=== PATIENT | female | born 1975 | race Caucasian/White ===

== ENCOUNTER 2016-07-25 02:55 | Emergency (ER) | payer OTHER ==
[~2016-07-25 02:55] MED LIST: ALDOMET PO; FOLI5INJ2 SC; IRON65TA PO; LABEPOW7 PO; OMEP40CA2 PO; PRENTAB9 PO; SYNT150T PO
--- NOTE | 2016-07-25 04:10 | EDDOCDS ---
Physician Documentation [facility] Name: Payton Kumar Age: 40 yrs Sex: Female : 1975 Arrival Date: 07/25/2016 Time: 02:55 Bed 12 Private MD: Disposition: 07/25/16 04:03 Patient has left against medical advice. Impression: Contusion of unspecified part of head. - Patients states they are going to Home/Self Care. - Condition is Satisfactory. Medication Reconciliation, Local Pharmacy Hours form. Follow up: Private Physician; When: Call to arrange an appointment; Reason: Recheck today's complaints. - Problem is new. - Symptoms are unchanged. Historical: - Allergies: No known drug Allergies; - Home Meds: 1. folic acid 1 mg Oral tab 1 tab nightly 2. Iron CR 500mg Oral daily 3. Synthroid 150 mcg Oral tab 1 tab once daily 4. Oral once daily 5. medication christopher high blood pressure 6. medication for hypertension X2 - PMHx: AORTIC VALVE DISORDER; Diabetes - NIDDM: controlled; GERD; glioma; Hypertension; - PSHx: ; labectomy X 2; - Social history: Smoking status: Patient states was never smoker of tobacco. No barriers to communication noted, The patient speaks fluent Slovak, Speaks appropriately for age. - Family history: Not pertinent. - : The pt / caregiver states he / she is not on anticoagulants. Home medication list is obtained from the patient. - Exposure Risk Screening:: None identified. 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 3 cz in. (160.02 cm); 03:17 Body Mass Index 42.51 (108.86 kg, 160.02 cm) cz MDM: 03:39 CT Head Without Contrast Ordered. EDMS 03:39 CT Maxilofacial W/out Contrast Ordered. EDMS 03:59 Financial registration complete. [facility] 04:02 [facility] Payment Agreement was scanned into [employer] and attached to record. [facility] Signatures: Dispatcher [employer] EDMS Memo Montana RN RN Thien Duenas DO DO cs11 Priscila OsorioRN RN Leonela Jo The chart was reviewed and I authenticate all verbal orders and agree with the evaluation and treatment provided.Attachments: 04:02 [facility] Payment Agreement [facility] MTDD
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
--- NOTE | 2016-07-25 05:58 | EDDOCDS ---
Physician Documentation [facility] Name: Payton Kumar Age: 40 yrs Sex: Female : 1975 Arrival Date: 07/25/2016 Time: 02:55 Bed D1 Private MD: Disposition: 07/25/16 04:03 Patient has left against medical advice. Impression: Contusion of unspecified part of head. - Patients states they are going to Home/Self Care. - Condition is Satisfactory. Medication Reconciliation, Local Pharmacy Hours form. Follow up: Private Physician; When: Call to arrange an appointment; Reason: Recheck today's complaints. - Problem is new. - Symptoms are unchanged. Historical: - Allergies: No known drug Allergies; - Home Meds: 1. folic acid 1 mg Oral tab 1 tab nightly 2. Iron CR 500mg Oral daily 3. Synthroid 150 mcg Oral tab 1 tab once daily 4. Oral once daily 5. medication christopher high blood pressure 6. medication for hypertension X2 - PMHx: AORTIC VALVE DISORDER; Diabetes - NIDDM: controlled; GERD; glioma; Hypertension; - PSHx: ; labectomy X 2; - Social history: Smoking status: Patient states was never smoker of tobacco. No barriers to communication noted, The patient speaks fluent Sao Tomean, Speaks appropriately for age. - Family history: Not pertinent. - : The pt / caregiver states he / she is not on anticoagulants. Home medication list is obtained from the patient. - Exposure Risk Screening:: None identified. 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 3 cz in. (160.02 cm); 03:17 Body Mass Index 42.51 (108.86 kg, 160.02 cm) cz MDM: 03:39 CT Head Without Contrast Ordered. EDMS 03:39 CT Maxilofacial W/out Contrast Ordered. EDMS 03:59 Financial registration complete. [facility] 04:02 [facility] Payment Agreement was scanned into [employer] and attached to record. [facility] Signatures: Dispatcher [employer] EDMS Mckenzie Whittington RN RN jan Zecher, Calvin, RN RN Thien Duenas DO DO cs11 Priscila Osorio RN RN mlc Hook, Sandra michael The chart was reviewed and I authenticate all verbal orders and agree with the evaluation and treatment provided.Attachments: 04:02 [facility] Payment Agreement [facility] MTDD
--- NOTE | 2016-07-27 06:58 | EDDOCDS ---
Physician Documentation Name: Payton Kumar Age: 40 yrs Sex: Female : 1975 Arrival Date: 07/25/2016 Time: 02:55 Bed D1 Private MD: Disposition: 07/25/16 04:03 Patient has left against medical advice. Impression: Contusion of unspecified part of head. - Patients states they are going to Home/Self Care. - Condition is Satisfactory. Medication Reconciliation, Local Pharmacy Hours form. Follow up: Private Physician; When: Call to arrange an appointment; Reason: Recheck today's complaints. - Problem is new. - Symptoms are unchanged. Historical: - Allergies: No known drug Allergies; - Home Meds: 1. folic acid 1 mg Oral tab 1 tab nightly 2. Iron CR 500mg Oral daily 3. Synthroid 150 mcg Oral tab 1 tab once daily 4. Oral once daily 5. medication christopher high blood pressure 6. medication for hypertension X2 - PMHx: AORTIC VALVE DISORDER; Diabetes - NIDDM: controlled; GERD; glioma; Hypertension; - PSHx: ; labectomy X 2; - Social history: Smoking status: Patient states was never smoker of tobacco. No barriers to communication noted, The patient speaks fluent Nigerian, Speaks appropriately for age. - Family history: Not pertinent. - : The pt / caregiver states he / she is not on anticoagulants. Home medication list is obtained from the patient. - Exposure Risk Screening:: None identified. 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 3 cz in. (160.02 cm); 03:17 Body Mass Index 42.51 (108.86 kg, 160.02 cm) cz MDM: 03:39 CT Head Without Contrast Ordered. EDMS 03:39 CT Maxilofacial W/out Contrast Ordered. EDMS 03:59 Financial registration complete. [facility] 04:02 [facility] Payment Agreement was scanned into [employer] and attached to record. [facility] 18:15 T-Sheet-- Draft Copy was scanned into [employer] and attached to record. klr 19:43 Refusal of Services was scanned into [employer] and attached to record. k[facility]3 Signatures: Dispatcher [employer] EDMS Mckenzie Whittington RN RN jan Zecher, Calvin, RN RN cz Fiddler, Kris, Reg Reg kf3 Thien Orourke, DO cs11 Priscila Osorio RN RN mlc Hook, Sandra [facility] Lynnette Sloan The chart was reviewed and I authenticate all verbal orders and agree with the evaluation and treatment provided.Attachments: 04:02 [facility] Payment Agreement [facility] 18:15 T-Sheet-- Draft Copy klr Chart Complete MTDD
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
--- NOTE | 2016-07-27 06:58 | EDDOCDS ---
Physician Documentation [facility] Name: Payton Kumar Age: 40 yrs Sex: Female : 1975 Arrival Date: 07/25/2016 Time: 02:55 Bed D1 Private MD: Disposition: 07/25/16 04:03 Patient has left against medical advice. Impression: Contusion of unspecified part of head. - Patients states they are going to Home/Self Care. - Condition is Satisfactory. Medication Reconciliation, Local Pharmacy Hours form. Follow up: Private Physician; When: Call to arrange an appointment; Reason: Recheck today's complaints. - Problem is new. - Symptoms are unchanged. Historical: - Allergies: No known drug Allergies; - Home Meds: 1. folic acid 1 mg Oral tab 1 tab nightly 2. Iron CR 500mg Oral daily 3. Synthroid 150 mcg Oral tab 1 tab once daily 4. Oral once daily 5. medication christopher high blood pressure 6. medication for hypertension X2 - PMHx: AORTIC VALVE DISORDER; Diabetes - NIDDM: controlled; GERD; glioma; Hypertension; - PSHx: ; labectomy X 2; - Social history: Smoking status: Patient states was never smoker of tobacco. No barriers to communication noted, The patient speaks fluent American, Speaks appropriately for age. - Family history: Not pertinent. - : The pt / caregiver states he / she is not on anticoagulants. Home medication list is obtained from the patient. - Exposure Risk Screening:: None identified. 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 3 cz in. (160.02 cm); 03:17 Body Mass Index 42.51 (108.86 kg, 160.02 cm) cz MDM: 03:39 CT Head Without Contrast Ordered. EDMS 03:39 CT Maxilofacial W/out Contrast Ordered. EDMS 03:59 Financial registration complete. [facility] 04:02 [facility] Payment Agreement was scanned into [employer] and attached to record. [facility] 18:15 T-Sheet-- Draft Copy was scanned into [employer] and attached to record. klr 19:43 Refusal of Services was scanned into [employer] and attached to record. kf3 Signatures: Dispatcher [employer] EDMS Mckenzie Whittington RN RN jan Zecher, Calvin, RN RN cz Fiddler, Kris, Reg Reg kf3 Thien Orourke, DO cs11 Priscila Osorio RN RN mlc Hook, Sandra [facility] Lynnette Sloan The chart was reviewed and I authenticate all verbal orders and agree with the evaluation and treatment provided.Attachments: 04:02 [facility] Payment Agreement [facility] 18:15 T-Sheet-- Draft Copy klr Chart Complete MTDD
== END 2016-07-25 05:57 | disposition left against medical advice (07) ==
LOC: M ED 02:55
DX: S09.93XA Unspecified injury of face, initial encounter (principal); Y04.0XXA Assault by unarmed brawl or fight, initial encounter; Y92.410 Unspecified street and highway as the place of occurrence of the external cause; Y93.89 Activity, other specified; Y99.8 Other external cause status; I35.9 Nonrheumatic aortic valve disorder, unspecified; E11.9 Type 2 diabetes mellitus without complications; L21.9 Seborrheic dermatitis, unspecified; I10 Essential (primary) hypertension; C71.9 Malignant neoplasm of brain, unspecified; Z79.899 Other long term (current) drug therapy

== ENCOUNTER → 2017-03-04 | Outpatient (REF) | payer OTHER ==
[2017-03-04 13:54] LABS: ALBUMIN 3.9 GM/DL (3.2-5.2); ALBUMIN/GLOBULIN RATIO 1.11 (1.00-1.93); ALKALINE PHOSPHATASE 103 U/L (45-117); ALT/SGPT 30 U/L (12-78); ANION GAP 14 MEQ/L (8-16); AST/SGOT 12 U/L (15-37); BILIRUBIN,TOTAL 0.6 MG/DL (0.2-1.0); BLOOD UREA NITROGEN 23 MG/DL (7-18); CALCIUM LEVEL 8.6 MG/DL (8.5-10.1); CARBON DIOXIDE LEVEL 19 MEQ/L (21-32); CHLORIDE LEVEL 111 MEQ/L (98-107); CREATININE FOR GFR 0.68 MG/DL (0.55-1.02); GLOMERULAR FILTRATION RATE > 60.0 (>60); GLUCOSE, FASTING 105 MG/DL (70-105); SODIUM LEVEL 144 MEQ/L (136-145); TOTAL PROTEIN 7.4 GM/DL (6.4-8.2)
[2017-03-04 13:59] LABS: BASO % 0.3 % (0.0-1.0); EOS # 0.2 K/mm3 (0.0-0.50); EOS % 2.2 % (0.0-3.0); LARGE UNSTAINED CELL # 0.1 K/mm3 (0.0-0.4); LARGE UNSTAINED CELL % 1.2 % (0.0-4.0); LYMPH # 1.7 K/mm3 (1.5-4.5); LYMPH % 21.8 % (24.0-44.0); MEAN CORPUSCULAR HEMOGLOBIN 29.1 pg (27.0-33.0); MEAN CORPUSCULAR HGB CONC 33.2 g/dl (32.0-36.5); MEAN CORPUSCULAR VOLUME 87.7 fl (80.0-96.0); MONO # 0.3 K/mm3 (0.0-0.8); MONO % 3.4 % (0.0-5.0); NEUTROPHILS # 5.5 K/mm3 (1.8-7.7); NEUTROPHILS % 71.2 % (36.0-66.0); PLATELET COUNT, AUTOMATED 385 k/mm3 (150-450); RED CELL DISTRIBUTION WIDTH 13.2 % (11.5-14.5); WHITE BLOOD COUNT 7.6 K/mm3 (4.0-10.0)
== END ==
LOC: M LABNEURO 11:40
PROVIDERS: ATTEND Psychiatry & Neurology Neurology
DX: G43.711 Chronic migraine without aura, intractable, with status migrainosus (principal); D32.0 Benign neoplasm of cerebral meninges

== ENCOUNTER → 2017-06-20 | Outpatient (REF) | payer OTHER | LOC: M LAB REF 21:28 | DX: R30.0 Dysuria (principal) ==

== ENCOUNTER 2017-08-14 18:35 | Emergency (ER) | payer OTHER ==
[2017-08-14] MEDS ORDERED: LABETALOL HCL 100 MG/20 ML VIAL IV (19:09)
[2017-08-14 19:18] LABS: BASO % 0.4 % (0.0-1.0); EOS # 0.3 10^3/uL (0.0-0.50); EOS % 2.8 % (0.0-3.0); HEMATOCRIT 38.8 % (36.0-47.0); HEMOGLOBIN 12.8 g/dl (12.0-16.0); IMMATURE GRANULOCYTE % 0.5 % (0-3.0); LYMPH % 20.2 % (24.0-44.0); MEAN CORPUSCULAR HEMOGLOBIN 28.1 pg (27.0-33.0); MEAN CORPUSCULAR VOLUME 85.1 fl (80.0-96.0); MONO # 0.6 10^3/uL (0.0-0.8); NEUTROPHILS # 6.9 10^3/uL (1.8-7.7); NEUTROPHILS % 70.1 % (36.0-66.0); PLATELET COUNT, AUTOMATED 364 10^3/uL (150-450); RED BLOOD COUNT 4.56 10^6/uL (4.00-5.40); RED CELL DISTRIBUTION WIDTH 14.9 % (11.5-14.5); WHITE BLOOD COUNT 9.9 10^3/uL (4.0-10.0)
[2017-08-14] MEDS: ASPIRIN 81 MG CHEW TABLET PO (19:29)
[2017-08-14] MEDS: LABETALOL 100 MG TAB PO (19:29)
[2017-08-14 19:36] LABS: INR 0.95; PARTIAL THROMBOPLASTIN TIME 28.1 SECONDS (26.8-37.9); PROTHROMBIN TIME 12.8 SECONDS (12.4-14.5)
[2017-08-14 19:39] LABS: D-DIMER QUANT 397.4 ng/ml (<500)
[2017-08-14 19:44] LABS: ALBUMIN 3.8 GM/DL (3.2-5.2); ALBUMIN/GLOBULIN RATIO 1.06 (1.00-1.93); ALKALINE PHOSPHATASE 146 U/L (45-117); ALT/SGPT 36 U/L (12-78); ANION GAP 8 MEQ/L (8-16); AST/SGOT 19 U/L (7-37); BILIRUBIN,DIRECT 0.1 MG/DL (0.0-0.2); BILIRUBIN,TOTAL 0.4 MG/DL (0.2-1.0); BLOOD UREA NITROGEN 12 MG/DL (7-18); CALCIUM LEVEL 8.4 MG/DL (8.5-10.1); CARBON DIOXIDE LEVEL 23 MEQ/L (21-32); CHLORIDE LEVEL 111 MEQ/L (98-107); CPK CREATINE PHOSPHOKINASE 171 U/L (26-192); CREATININE FOR GFR 0.76 MG/DL (0.55-1.30); FREE T4 0.91 NG/DL (0.76-1.46); GLOMERULAR FILTRATION RATE > 60.0 (>60); GLUCOSE, FASTING 96 MG/DL (70-100); LIPASE 129 U/L (73-393); POTASSIUM SERUM 3.8 MEQ/L (3.5-5.1); SODIUM LEVEL 142 MEQ/L (136-145); TOTAL PROTEIN 7.4 GM/DL (6.4-8.2); TROPONIN I < 0.02 NG/ML (< 0.10)
[2017-08-14 19:49] LABS: CK-MB VALUE MASS 3.4 NG/ML (0.0-3.6); MB/CK RELATIVE INDEX 1.98 (< OR =4); NT-PRO BNP 50 PG/ML (<125)
[2017-08-14 20:02] LABS: CONTROL LINE HCG INT CTR LINE PRESENT; HCG, SERUM QUALITATIVE NEGATIVE (NEGATIVE)
[2017-08-14 22:59] LABS: CPK CREATINE PHOSPHOKINASE 152 U/L (26-192); TROPONIN I < 0.02 NG/ML (< 0.10)
[2017-08-14 23:00] LABS: CK-MB VALUE MASS 2.9 NG/ML (0.0-3.6)
== END 2017-08-14 23:46 | disposition home or self-care (01) ==
LOC: M ED 18:35
DX: I16.0 Hypertensive urgency (principal); R07.9 Chest pain, unspecified; E78.5 Hyperlipidemia, unspecified; Z82.49 Family history of ischemic heart disease and other diseases of the circulatory system; Z88.4 Allergy status to anesthetic agent; Z79.899 Other long term (current) drug therapy
CPT/HCPCS: 71046

== ENCOUNTER 2018-07-29 18:10 | Emergency (ER) | payer OTHER ==
[~2018-07-29] VITALS: Ht 160 cm; Wt 127.3 kg
[~2018-07-29 18:10] MED LIST changes: +AMLO10TA5; +FERR325T3 PO; +LABE300T2; +LOSA50TA88 PO; +PARO20TA3 PO; +TOPI100T9
[2018-07-29] MEDS ORDERED: PARO1TAB33 (18:18)
[2018-07-29] MEDS ORDERED: NORT75CA2 (18:18)
[2018-07-29] MEDS ORDERED: KETOROLAC TROMETHAMINE 10 MG TAB PO ONE (19:00)
[2018-07-29] MEDS ORDERED: diazePAM 5 MG TAB PO ONE (19:00)
--- NOTE | 2018-07-29 19:46 | REP ---
THORACIC SPINE: Three views of the thoracic spine are performed. No fracture or dislocation is seen. Vertebral bodies are normal in height and are well aligned with normal thoracic kyphosis. There is mild diffuse spurring and there is mild diffuse disc space narrowing. The posterior elements are intact. IMPRESSION: Degenerative changes without fracture or dislocation. Electronically Signed by Fantasma Collado MD 07/29/2018 07:49 P
[2018-07-29 19:47] VITALS: BP 146/82
--- NOTE | 2018-07-29 19:48 | REP ---
LUMBOSACRAL SPINE: Five views of the lumbosacral spine are performed. There is no compression fracture or malalignment. There is normal lumbar lordosis. There is mild diffuse spurring. There is mild disc space narrowing and subchondral sclerosis at L5-S1. Posterior elements are intact. IMPRESSION: Degenerative changes without fracture or dislocation. Electronically Signed by Fantasma Collado MD 07/29/2018 07:49 P
--- NOTE | 2018-07-29 19:51 | REPVR ---
EXAM: CT Head Without Contrast EXAM DATE/TIME: 07/29/2018 7:11 PM CLINICAL HISTORY: 42 years old, female; Injury or trauma; Fall; Initial encounter; Blunt trauma (contusions or hematomas); Consciousness not specified; Prior surgery; Surgery date: 6+ months; Surgery type: Tumor removal; Additional info: Fall on ice, HERNANDEZ, recent brain surg TECHNIQUE: Axial computed tomography images of the head/brain without contrast. All CT scans at this facility use at least one of these dose optimization techniques: automated exposure control; mA and/or kV adjustment per patient size (includes targeted exams where dose is matched to clinical indication); or iterative reconstruction. COMPARISON: CT Head without contrast 07/21/2015 8:10 AM FINDINGS: Brain: Focus of macrocystic encephalomalacia right posterior parietal lobe consistent with prior surgery. Ventricles: Normal. No ventriculomegaly. Bones/joints: Status post interval right posterior parietal craniotomy. Sinuses: Visualized sinuses are unremarkable. No acute sinusitis. Mastoid air cells: Visualized mastoid air cells are unremarkable. No mastoid effusion. Soft tissues: Unremarkable. IMPRESSION: Focus of macrocystic encephalomalacia right posterior parietal lobe consistent with prior surgery. No acute intracranial findings. Electronically signed by: Palmer Lerner On 07/29/2018 19:51:36 PM
--- NOTE | 2018-07-29 19:55 | REPVR ---
EXAM: CT Cervical Spine Without Contrast EXAM DATE/TIME: 07/29/2018 7:11 PM CLINICAL HISTORY: 42 years old, female; Injury or trauma; Fall; Initial encounter; Blunt trauma; Additional info: Fall on ice, HERNANDEZ, neck pain TECHNIQUE: Axial computed tomography images of the cervical spine without intravenous contrast. All CT scans at this facility use at least one of these dose optimization techniques: automated exposure control; mA and/or kV adjustment per patient size (includes targeted exams where dose is matched to clinical indication); or iterative reconstruction. Coronal and sagittal reformatted images were created and reviewed. COMPARISON: No relevant prior studies available. FINDINGS: Vertebrae: No acute fracture. Normal alignment. Discs/Spinal canal/Neural foramina: Mild foraminal narrowing on the right at C3. Disc osteophyte complex at C5-6 effaces the ventral subarachnoid space and results in mild mid cord impingement. Soft tissues: Unremarkable. Lungs: Lung apices are normal. IMPRESSION: No acute findings. Electronically signed by: Palmer Lerner On 07/29/2018 19:55:09 PM
[2018-07-29] MEDS ORDERED: KETO10TAB PO (20:01)
[2018-07-29] MEDS ORDERED: VALI5TAB PO (20:01)
== END 2018-07-29 20:13 | disposition home or self-care (01) ==
LOC: M ED 18:10
DX: S30.0XXA Contusion of lower back and pelvis, initial encounter (principal); W00.1XXA Fall from stairs and steps due to ice and snow, initial encounter; Y92.59 Other trade areas as the place of occurrence of the external cause; Y93.9 Activity, unspecified; Y99.9 Unspecified external cause status; I10 Essential (primary) hypertension; E03.9 Hypothyroidism, unspecified; E28.2 Polycystic ovarian syndrome; F32.9 Major depressive disorder, single episode, unspecified; I35.0 Nonrheumatic aortic (valve) stenosis; E66.2 Morbid (severe) obesity with alveolar hypoventilation; Z79.899 Other long term (current) drug therapy; Z88.4 Allergy status to anesthetic agent

== ENCOUNTER → 2018-08-01 | Outpatient (CLI) | payer OTHER ==
[~2018-08-01] MED LIST changes: +KETO10TAB PO; +NORT75CA2; +PARO1TAB33; +PROHANCE 279.3MG/ML 15ML VIAL (A9576) As Ordered ONE; +PROHANCE 279.3MG/ML 5ML VIAL (A9576) As Ordered ONE; +VALI5TAB PO
--- NOTE | 2018-08-02 08:37 | REP ---
MR BRAIN WITHOUT AND WITH CONTRAST: HISTORY: Brain tumor. CONTRAST: ProHance 23 mL. COMPARISON: MR 08/21/[address] 07/29/2018. The patient is status post right parietal craniotomy. A small area of increased signal intensity on T2-weighted images is present in the posterior right parietal lobe. This represents gliosis and encephalomalacia. There is no intraparenchymal hemorrhage, infarct, mass or midline shift. There is no abnormal enhancement. The ventricular system is normal in appearance. There is no extracerebral collection. The sinuses are clear. IMPRESSION: Right parietal encephalomalacia. There is no recurrent tumor. Electronically Signed by Sarbjit Her MD 08/02/2018 08:44 A
== END ==
LOC: M RAD 15:36
PROVIDERS: ATTEND Neurological Surgery
DX: D33.2 Benign neoplasm of brain, unspecified (principal); H53.8 Other visual disturbances
CPT/HCPCS: 70553; A9576

== ENCOUNTER → 2018-10-17 | Outpatient (CLI) | payer OTHER ==
[~2018-10-17] MED LIST changes: -PROHANCE 279.3MG/ML 15ML VIAL (A9576) As Ordered ONE; -PROHANCE 279.3MG/ML 5ML VIAL (A9576) As Ordered ONE
[2018-10-17 11:56] LABS: HEMATOCRIT 38.5 % (36.0-47.0); HEMOGLOBIN 12.4 g/dl (12.0-15.5); MEAN CORPUSCULAR HEMOGLOBIN 28.2 pg (27.0-33.0); MEAN CORPUSCULAR HGB CONC 32.2 g/dl (32.0-36.5); MEAN CORPUSCULAR VOLUME 87.5 fl (80.0-96.0); PLATELET COUNT, AUTOMATED 357 10^3/uL (150-450); WHITE BLOOD COUNT 7.7 10^3/uL (4.0-10.0)
[2018-10-17 12:27] LABS: ALBUMIN 3.8 GM/DL (3.2-5.2); ALT/SGPT 32 U/L (12-78); BILIRUBIN,TOTAL 0.4 MG/DL (0.2-1.0); BLOOD UREA NITROGEN 16 MG/DL (7-18); CALCIUM LEVEL 8.4 MG/DL (8.5-10.1); CARBON DIOXIDE LEVEL 24 MEQ/L (21-32); CHLORIDE LEVEL 110 MEQ/L (98-107); CHOLESTEROL LEVEL 185 MG/DL (<200); CHOLESTEROL RISK RATIO 5.138 (<5); CREATININE FOR GFR 0.81 MG/DL (0.55-1.30); GLOMERULAR FILTRATION RATE > 60.0 (>58); GLUCOSE, FASTING 114 MG/DL (70-100); HDL CHOLESTEROL 36 MG/DL (>40); LDL CHOLESTEROL 133 MG/DL (<100); NON-HDL-C 149 MG/DL; POTASSIUM SERUM 4.1 MEQ/L (3.5-5.1); SODIUM LEVEL 142 MEQ/L (136-145); TOTAL PROTEIN 6.9 GM/DL (6.4-8.2); TRIGLYCERIDES LEVEL 79 MG/DL (<150)
[2018-10-17 12:37] LABS: HEMOGLOBIN A1c 6.3 %
--- NOTE | 2018-10-18 02:22 | REP ---
Clinical: Preoperative assessment with hypertension . Comparison: 08/14/2017 . Technique: PA and lateral. Findings: The mediastinum and cardiac silhouette are normal. The lung jalloh are clear and without acute consolidation, effusion, or pneumothorax. The skeletal structures are intact and normal. Impression: 1. No acute cardiopulmonary process. Electronically Signed by Harinder Melo MD 10/18/2018 02:13 A
== END ==
LOC: M LAB 11:23
PROVIDERS: ATTEND Family Medicine
DX: Z01.812 Encounter for preprocedural laboratory examination (principal); I10 Essential (primary) hypertension; E11.9 Type 2 diabetes mellitus without complications

== ENCOUNTER → 2018-12-05 | Outpatient (CLI) | payer OTHER ==
[2018-12-05 11:12] LABS: BASO % 0.5 % (0.0-1.0); EOS # 0.2 10^3/uL (0.0-0.50); EOS % 2.8 % (0.0-3.0); HEMATOCRIT 39.8 % (36.0-47.0); HEMOGLOBIN 12.9 g/dl (12.0-15.5); LYMPH # 1.8 10^3/uL (1.5-4.5); MEAN CORPUSCULAR HEMOGLOBIN 28.7 pg (27.0-33.0); MEAN CORPUSCULAR HGB CONC 32.4 g/dl (32.0-36.5); MEAN CORPUSCULAR VOLUME 88.6 fl (80.0-96.0); MONO # 0.5 10^3/uL (0.0-0.8); MONO % 7.5 % (0.0-5.0); NEUTROPHILS # 3.6 10^3/uL (1.8-7.7); NEUTROPHILS % 58.9 % (36.0-66.0); PLATELET COUNT, AUTOMATED 316 10^3/uL (150-450); RED BLOOD COUNT 4.49 10^6/uL (4.00-5.40); WHITE BLOOD COUNT 6.1 10^3/uL (4.0-10.0)
[2018-12-05 11:34] LABS: HEMOGLOBIN A1c 5.9 %
[2018-12-05 11:47] LABS: ALBUMIN 3.4 GM/DL (3.2-5.2); ALT/SGPT 26 U/L (12-78); BILIRUBIN,TOTAL 0.7 MG/DL (0.2-1.0); BLOOD UREA NITROGEN 11 MG/DL (7-18); CALCIUM LEVEL 8.9 MG/DL (8.5-10.1); CARBON DIOXIDE LEVEL 24 MEQ/L (21-32); CHLORIDE LEVEL 108 MEQ/L (98-107); CREATININE FOR GFR 0.57 MG/DL (0.55-1.30); FERRITIN 18 NG/ML (8-252); GLOMERULAR FILTRATION RATE > 60.0 (>58); GLUCOSE, FASTING 93 MG/DL (70-100); IRON (FE) 53 UG/DL (50-170); PERCENT SATURATION 16.2 % (13.2-45.0); PHOSPHORUS LEVEL 4.1 MG/DL (2.5-4.9); SODIUM LEVEL 141 MEQ/L (136-145); TOTAL 25(OH) VITAMIN D 39.6 NG/ML (30.0-100.0); TOTAL IRON BINDING CAPACITY 328 UG/DL (250-450); TOTAL PROTEIN 6.5 GM/DL (6.4-8.2); VITAMIN B12 LEVEL 1051 PG/ML (247-911)
[2018-12-05 19:13] LABS: HEMATOCRIT 39.8 % (36.0-47.0)
== END ==
LOC: M LAB 09:41
PROVIDERS: ATTEND Physician Assistant
DX: K91.2 Postsurgical malabsorption, not elsewhere classified (principal); Z98.84 Bariatric surgery status; E55.9 Vitamin D deficiency, unspecified

== ENCOUNTER → 2019-01-18 | Outpatient (REF) | payer OTHER ==
[2019-01-18 14:28] LABS: APPEARANCE, URINE CLOUDY (CLEAR); BACTERIA, URINE AUTO 1+ (NEGATIVE); BILIRUBIN, URINE AUTO NEGATIVE (NEGATIVE); BLOOD, URINE BLOOD NEGATIVE (NEGATIVE); COLOR, URINE AMBER (YELLOW); GLUCOSE, URINE (UA) AUTO NEGATIVE (NEGATIVE); KETONE, URINE AUTO TRACE mg/dL (NEGATIVE); LEUKOCYTE ESTERASE, URINE AUTO NEGATIVE (NEGATIVE); MUCUS, URINE LARGE (NEGATIVE); NITRITE, URINE AUTO NEGATIVE (NEGATIVE); PROTEIN, URINE AUTO 2+ mg/dL (NEGATIVE); RBC, URINE AUTO 2 /HPF (0-3); SPECIFIC GRAVITY URINE AUTO 1.024 (1.002-1.035); SQUAMOUS EPITHELIAL CELL UR AU 28 /HPF (0-6); WBC, URINE AUTO 5 /HPF (0-3)
== END ==
LOC: M LAB REF 13:04
PROVIDERS: ATTEND Physician Assistant
DX: N39.0 Urinary tract infection, site not specified (principal)

== ENCOUNTER → 2019-01-26 | Outpatient (CLI) | payer OTHER ==
[~2019-01-26] MED LIST changes: +ALPR1TAB3; +CHLO125TA; +LABE100T36 PO; +LABE300T2 PO; -OMEP40CA2 PO; +OMEP40CA97 PO; +PROHANCE 279.3MG/ML 15ML VIAL (A9576) As Ordered ONE; +PROHANCE 279.3MG/ML 5ML VIAL (A9576) As Ordered ONE
--- NOTE | 2019-01-26 12:48 | REP ---
MR BRAIN WITHOUT AND WITH CONTRAST: HISTORY: Brain tumor. CONTRAST: ProHance 20 mL. COMPARISON: 08/01/2018 The patient is status post right parietal craniotomy. A small area of increased signal intensity on T2-weighted images is present in the posterior right parietal lobe. There is dilatation of the overlying cortical sulci. This represents gliosis and encephalomalacia. There is no intraparenchymal hemorrhage, infarct, mass or midline shift. There is no abnormal enhancement. The ventricular system is normal in appearance. There is no extracerebral collection_. Minimal mucosal thickening is present in the right mastoid sinus. IMPRESSION: Right parental lobe encephalomalacia. There is no recurrent tumor. Electronically Signed by Sarbjit Her MD 01/26/2019 12:56 P
== END ==
LOC: M RAD 09:38
PROVIDERS: ATTEND Physician Assistant Medical
DX: G93.89 Other specified disorders of brain (principal)
CPT/HCPCS: 70553; A9576

== ENCOUNTER → 2019-02-07 | Outpatient (CLI) | payer OTHER ==
[~2019-02-07] MED LIST changes: -ALPR1TAB3; -CHLO125TA; -LABE100T36 PO; -LABE300T2 PO; +OMEP40CA2 PO; -OMEP40CA97 PO; -PROHANCE 279.3MG/ML 15ML VIAL (A9576) As Ordered ONE; -PROHANCE 279.3MG/ML 5ML VIAL (A9576) As Ordered ONE
--- NOTE | 2019-02-07 20:41 | REP ---
BILATERAL MAMMOGRAM WITH 3D TOMOSYNTHESIS, DIAGNOSTIC MAMMOGRAM RIGHT BREAST AND RIGHT BREAST ULTRASOUND: HISTORY: Palpable lump for two months outer right breast. The area is marked on the skin with a triangular marker. COMPARISON: [facility] 10/18/2012. Doyle Durham lifetime risk of breast cancer 21.5%. Mild scattered fibroglandular tissue is again seen bilaterally with no change. There is no new mass or architectural distortion. No clustered microcalcifications are seen. Real-time sonographic evaluation of outer right breast demonstrates no cystic or solid nodule. IMPRESSION: ACR 1 negative mammogram. Also negative right breast ultrasound. There is no mammographic or sonographic evidence of mass at the site of the reported palpable lump in the outer right breast. A negative mammogram and ultrasound should not deter biopsy if there is a clinically suspicious palpable mass present. Recommend followup mammogram in one year. Given the patient's elevated lifetime risk of breast cancer, recommend supplemental screening MRI of the breasts in 6 months. BIRADS 1: BI-RADS/ACR category 1 mammogram. Negative Mammogram. This mammogram was interpreted with the aid of an FDA-approved computer-aided detection system. The patient states she/he had a clinical breast exam in January 2019. The patient letter being requested is M2. Electronically Signed by Fantasma Collado MD 02/08/2019 02:36 P
== END ==
LOC: M RAD 15:20
PROVIDERS: ATTEND Family Medicine
DX: Z12.31 Encounter for screening mammogram for malignant neoplasm of breast (principal); R10.11 Right upper quadrant pain
CPT/HCPCS: 76642; 77066; G0279

== ENCOUNTER 2019-04-09 20:42 | Emergency (ER) | payer OTHER ==
[~2019-04-09] VITALS: Ht 160 cm; Wt 103.6 kg
[~2019-04-09 20:42] MED LIST changes: -OMEP40CA2 PO; +OMEP40CA97 PO
[2019-04-09] MEDS ORDERED: LABE300T2 PO (20:52)
[2019-04-09] MEDS ORDERED: CHLO125TA (20:52)
[2019-04-09] MEDS ORDERED: ALPR1TAB3 (20:52)
[2019-04-09] MEDS ORDERED: LABE100T36 PO (20:52)
--- NOTE | 2019-04-09 21:49 | REPVR ---
PROCEDURE INFORMATION: Exam: CT Head Without Contrast Exam date and time: 04/09/2019 9:27 PM Clinical history: 43 years old, female; Pain; Headache; Additional info: H/a post brain tumor TECHNIQUE: Imaging protocol: Computed tomography of the head without contrast. Radiation optimization: All CT scans at this facility use at least one of these dose optimization techniques: automated exposure control; mA and/or kV adjustment per patient size (includes targeted exams where dose is matched to clinical indication); or iterative reconstruction. COMPARISON: CT Head without contrast 07/29/2018 7:05 PM FINDINGS: Brain: Right parietal encephalomalacia. No midline shift, mass, fluid collection, or evidence of hemorrhage. Ventricles: Normal. No ventriculomegaly. Bones/joints: Right parietal craniotomy. Sinuses: Visualized sinuses are unremarkable. No fluid levels. Mastoid air cells: Visualized mastoid air cells are well aerated. Soft tissues: Unremarkable. IMPRESSION: No acute intracranial abnormality. Electronically signed by: Manfred Dick On 04/09/2019 21:49:29 PM
[2019-04-09] MEDS ORDERED: KETOROLAC 30 MG/ML VIAL (J1885) IV ONE (22:00)
[2019-04-09] MEDS ORDERED: METOCLOPRAMIDE INJ 10MG/2ML VIAL (J2765) IV ONE (22:00)
[2019-04-09] MEDS ORDERED: NS 1,000 ML IV ONE (22:00)
[2019-04-09] MEDS ORDERED: diphenhydrAMINE INJ 50MG/ML VIAL (J1200) IV ONE (22:00)
[2019-04-10 00:32] VITALS: BP 142/74
== END 2019-04-10 00:53 | disposition home or self-care (01) ==
LOC: M ED 20:42
DX: R51 Headache (principal); Z91.030 Bee allergy status; Z88.8 Allergy status to other drugs, medicaments and biological substances; Z79.899 Other long term (current) drug therapy
CPT/HCPCS: 70450; 96374; 96375; 99284; J1200; J1885; J2765

== ENCOUNTER → 2019-07-26 | Outpatient (REF) | payer OTHER ==
[~2019-07-26] MED LIST changes: +ALPR1TAB3; +CHLO125TA; +LABE100T36 PO; +LABE300T2 PO
[2019-07-26 17:39] LABS: INFLUENZA A AMPLIFICATION NEGATIVE (NEGATIVE); INFLUENZA B AMPLIFICATION NEGATIVE (NEGATIVE)
== END ==
LOC: M LAB REF 16:31
PROVIDERS: ATTEND Physician Assistant
DX: J11.1 Influenza due to unidentified influenza virus with other respiratory manifestations (principal)

== ENCOUNTER → 2019-11-17 | Outpatient (CLI) | payer OTHER ==
--- NOTE | 2019-11-18 10:20 | REP ---
REASON FOR EXAM: History of uterine myomatous changes. Comparison examination is 07/26/2013, which is the latest prior. Transvesical imaging only was performed. The reason transvaginal imaging was performed is unknown to me. The uterus is enlarged measuring 14.5 x 5.7 x 6.6 cm. Once again, there are multiple mixed echo, predominantly hypoechoic structures seen throughout the uterine parenchyma, the largest of which measure approximately 3.8 x 3.5 x 3.4 cm in the fundal portion and pedunculated, one anteriorly measuring 3 x 2.7 x 2.7 cm and the other posteriorly measuring 1.5 x 1.3 x 1.7 cm. The endometrial echo complex is distorted by the myomatous change, but has a maximal thickness of 7 mm. The right ovary measures 4.1 x 2.6 x 3.4 cm. There is a dominant follicle in the right ovary which measures 2.5 cm. Left ovary measures 3.2 x 2 x 2.5 cm and is unremarkable. IMPRESSION: Uterine myomatous changes, as described above.
== END ==
LOC: M WHC 10:50
PROVIDERS: ATTEND Specialist
DX: D21.9 Benign neoplasm of connective and other soft tissue, unspecified (principal)

== ENCOUNTER → 2019-12-05 | Outpatient (CLI) | payer OTHER ==
[~2019-12-05] MED LIST changes: +IBUP-1022 PO; +OXYC1TAB23 PO; -PARO1TAB33; +PARO1TAB33 PO; +SPIR-10 PO; +TOPR25TA PO
== END ==
LOC: M LABSMTC 09:52
PROVIDERS: ATTEND Anesthesiology
DX: Z01.818 Encounter for other preprocedural examination (principal); Z11.59 Encounter for screening for other viral diseases
CPT/HCPCS: C9803; U0003

== ENCOUNTER 2019-12-08 09:22 | Day surgery (SDC) | payer OTHER ==
[2019-12-08] VITALS (8 sets, daily range): BP systolic 128–172; BP diastolic 79–100
[~2019-12-08] VITALS: Ht 160 cm; Wt 102.2 kg
[~2019-12-08 09:22] MED LIST changes: -AMLO10TA5; +AMLO1TAB25; -IBUP-1022 PO; +LIDOCAINE 1% MDV 20ML VIAL SQ PRN; +LR 1,000 ML IV ONE; -OXYC1TAB23 PO; +ceFAZolin SOD 2 GM in IV 1 EA IV ONE
[2019-12-08 09:58] LABS: HEMATOCRIT 34.4 % (36.0-47.0); HEMOGLOBIN 11.3 g/dl (12.0-15.5); MEAN CORPUSCULAR HEMOGLOBIN 27.3 pg (27.0-33.0); MEAN CORPUSCULAR HGB CONC 32.8 g/dl (32.0-36.5); MEAN CORPUSCULAR VOLUME 83.1 fl (80.0-96.0); PLATELET COUNT, AUTOMATED 390 10^3/uL (150-450); RED BLOOD COUNT 4.14 10^6/uL (4.00-5.40); WHITE BLOOD COUNT 5.8 10^3/uL (4.0-10.0)
[2019-12-08 10:30] LABS: BLOOD UREA NITROGEN 13 MG/DL (7-18); CALCIUM LEVEL 8.4 MG/DL (8.5-10.1); CARBON DIOXIDE LEVEL 29 MEQ/L (21-32); CHLORIDE LEVEL 109 MEQ/L (98-107); CREATININE FOR GFR 0.81 MG/DL (0.55-1.30); GLOMERULAR FILTRATION RATE > 60.0 (>58); GLUCOSE, FASTING 91 MG/DL (70-100); POTASSIUM SERUM 3.9 MEQ/L (3.5-5.1); SODIUM LEVEL 140 MEQ/L (136-145)
[2019-12-08] MEDS ORDERED: MIDAZOLAM INJ 2MG/2ML VIAL (J2250 PER 1MG) As Ordered ONE ×2 (11:32→18:49)
[2019-12-08] MEDS ORDERED: ONDANSETRON 4MG/2ML VIAL As Ordered ONE (11:32)
[2019-12-08] MEDS ORDERED: LIDOCAINE 2% 100MG/5ML SDV (FOR ANES.) As Ordered ONE (11:32)
[2019-12-08] MEDS ORDERED: propofoL 200 MG/20 ML VIAL As Ordered ONE (11:32)
[2019-12-08] MEDS ORDERED: dexameTHASONE 4 MG/ML 1ML VIAL (J1100 PER 1MG) As Ordered ONE (11:32)
[2019-12-08] MEDS ORDERED: fentaNYL 100 MCG/2 ML INJECTION (J3010) As Ordered ONE (11:32)
[2019-12-08] MEDS ORDERED: KETOROLAC 60MG 2ML VIAL As Ordered ONE ×2 (11:32→18:49)
[2019-12-08] MEDS ORDERED: ROCURONIUM BROMIDE 50 MG/5 ML VIAL As Ordered ONE ×2 (11:32→14:18)
[2019-12-08] MEDS ORDERED: HYDROmorphone HCL 2 MG/ML 1ML VIAL (J1170) As Ordered ONE (11:32)
[2019-12-08] MEDS ORDERED: OXYC1TAB23 PO (13:31)
[2019-12-08] MEDS ORDERED: IBUP-1022 PO (13:32)
[2019-12-08] MEDS ORDERED: ACETAMINOPHEN 1000MG 100ML IV BTL (OFIRMEV) (J0131 PER 10MG) As Ordered ONE (13:50)
[2019-12-08] MEDS ORDERED: BUPIVACAINE HCL 0.25% 10ML VIAL As Ordered ONE (13:53)
[2019-12-08] MEDS ORDERED: SUGAMMADEX SODIUM 500 MG/5 ML VIAL (BRIDION) As Ordered ONE ×2 (14:20→18:49)
[2019-12-08] MEDS ORDERED: fentaNYL 100 MCG/2 ML INJECTION (J3010) IV PRN (16:15)
[2019-12-08] MEDS ORDERED: oxyCODONE 5MG TAB PO PRN (16:15)
[2019-12-08] MEDS ORDERED: LR 1,000 ML IV SCH ×2 (16:15→17:30)
[2019-12-08] MEDS ORDERED: ONDANSETRON 4MG/2ML VIAL IV PRN ×2 (16:15→17:30)
[2019-12-08] MEDS ORDERED: PERCOCET 5MG/325MG TAB PO PRN (17:30)
[2019-12-08] MEDS ORDERED: KETOROLAC 30 MG/ML 1ML VIAL IV PRN (17:30)
[2019-12-08] MEDS ORDERED: MORPHINE 4 MG/ML 1ML VIAL/SYRINGE (J2270) IV PRN (17:30)
[2019-12-08] MEDS: DOCUSATE SODIUM 100MG CAPSULE PO SCH (20:05)
[2019-12-08] MEDS ORDERED: METOPROLOL SUCC *XL* 25MG TAB (TopROL *XL*) PO SCH (21:00)
[2019-12-08] MEDS ORDERED: SPIRONOLACTONE 25 MG TAB PO SCH (21:00)
[2019-12-09] VITALS: BP 117/73
[2019-12-09] MEDS: PERCOCET 5MG/325MG TAB PO PRN ×3 (00:25→09:13)
[2019-12-09 04:00] VITALS: BP 127/78
[2019-12-09 08:00] VITALS: BP 136/72
[2019-12-09] MEDS: DOCUSATE SODIUM 100MG CAPSULE PO SCH (09:13)
--- NOTE | 2019-12-12 12:28 | RO ---
DATE OF PROCEDURE: 12/08/2019 PREOPERATIVE DIAGNOSIS: Menorrhagia, pelvic pain, fibroids. POSTOPERATIVE DIAGNOSIS: Menorrhagia, pelvic pain, fibroids. PROCEDURE: Robotic-assisted laparoscopy hysterectomy. Bilateral salpingectomy. Cystoscopy. SURGEON: Dr. Sarbjit Costello OFFICE ANALYST: Payton Posada NP ANESTHESIA: General endotracheal. ESTIMATED BLOOD LOSS: 200 mL. URINE OUTPUT: 400 mL. FINDINGS: Enlarged uterus with multiple uterine fibroids densely adherent to the anterior abdominal wall on the right. Omental adhesions to the anterior abdominal wall. Normal ovaries and fallopian tubes. Normal upper abdomen. OPERATIVE SUMMARY: The patient was taken to the operating room where general endotracheal anesthesia was induced. She was prepped and draped in sterile fashion in the dorsal lithotomy position. A DP7 Digitalare uterine manipulator was placed. The Melton catheter was placed. A periumbilical incision made with the scalpel. Veress needle was placed through this incision. A pneumoperitoneum was created. Three 8 mm suprapubic ports were placed under direct visualization. Using the vessel sealer and fenestrated bipolar instrument, the broad ligament attachments to the fallopian tubes were coagulated and incised. The fallopian tubes were amputated near their origin and removed through the suprapubic port. The utero-ovarian ligaments and round ligaments were then coagulated and incised, freeing the ovaries from the uterus. Dense adhesions of the uterus to the anterior abdominal wall on the right side were taken down with a combination of blunt and sharp dissection. A bladder flap was created. The uterine vessels were coagulated and incised. Using the monopolar Endoshears, the colpotomy was created in the upper vagina at the level of the VCare cup and this was extended circumferentially around the vagina. The specimen was enlarged and had to be morcellated in order to be removed through the vagina. In order to do this, the robot was undocked and Breisky retractors were placed. Once the specimen was removed, the robot was redocked. The vaginal cuff was closed with #1 V-Loc suture in running fashion. The pelvis was irrigated. Good hemostasis was noted. A cystoscopy was performed using a 70 degrees cystoscope. Bilateral ureteral jets were identified. There was no evidence of injury to the bladder. The cystoscope was removed. All instruments were removed. The skin was closed with #4-0 Monocryl subcuticular sutures. Sponge, instrument and needle counts were correct. Payton Posada NP, assisted throughout the procedure. She prepped the patient and positioned the patient. She manipulated the uterus and helped to remove the specimen. She subsequently helped close.
== END 2019-12-09 09:35 | disposition home or self-care (01) ==
LOC: M SDC 09:22 → M PED 17:00 → M SDC 12-09 09:35
PROVIDERS: ATTEND Specialist
DX: N92.0 Excessive and frequent menstruation with regular cycle (principal); N72 Inflammatory disease of cervix uteri; D25.1 Intramural leiomyoma of uterus; D25.2 Subserosal leiomyoma of uterus; K66.0 Peritoneal adhesions (postprocedural) (postinfection); I10 Essential (primary) hypertension; Z98.84 Bariatric surgery status; F32.9 Major depressive disorder, single episode, unspecified; G43.909 Migraine, unspecified, not intractable, without status migrainosus; Z91.013 Allergy to seafood; Z91.030 Bee allergy status; Z88.8 Allergy status to other drugs, medicaments and biological substances; Z79.899 Other long term (current) drug therapy
CPT/HCPCS: 36415; 58571; 80048; 81025; 85027; 86850; 86900; 86901; 88307; 96374; J0131; J0690; J1100; J1170; J1885; J2250; J2405; J3010

== ENCOUNTER → 2019-12-27 | Outpatient (REF) | payer OTHER ==
[~2019-12-27] MED LIST changes: +BACT800T5 PO; +IBUP-1022 PO; -LIDOCAINE 1% MDV 20ML VIAL SQ PRN; -LR 1,000 ML IV ONE; +OXYC1TAB23 PO; -ceFAZolin SOD 2 GM in IV 1 EA IV ONE
== END ==
LOC: M LAB REF 16:46
PROVIDERS: ATTEND Physician Assistant
DX: S31.109A Unspecified open wound of abdominal wall, unspecified quadrant without penetration into peritoneal cavity, initial encounter (principal); X58.XXXA Exposure to other specified factors, initial encounter; Y92.9 Unspecified place or not applicable

== ENCOUNTER 2020-02-27 11:42 | Emergency (ER) | payer OTHER ==
[~2020-02-27] VITALS: Ht 160 cm; Wt 102.2 kg
[~2020-02-27 11:42] MED LIST changes: -BACT800T5 PO
[2020-02-27] MEDS ORDERED: dexameTHASONE 20MG/5ML VIAL (J1100 PER 1MG) IV ONE (12:45)
[2020-02-27] MEDS ORDERED: ONDANSETRON 4MG/2ML VIAL IV ONE (12:45)
[2020-02-27] MEDS ORDERED: KETOROLAC 30 MG/ML 1ML VIAL IV ONE (12:45)
[2020-02-27] MEDS ORDERED: NS 1,000 ML IV ONE (12:45)
[2020-02-27] MEDS ORDERED: dexameTHASONE 4 MG/ML 1ML VIAL (J1100 PER 1MG) As Ordered ONE (12:46)
[2020-02-27] MEDS ORDERED: KETOROLAC 30 MG/ML 1ML VIAL As Ordered ONE (12:46)
[2020-02-27] MEDS ORDERED: ONDANSETRON 4MG/2ML VIAL As Ordered ONE (12:46)
[2020-02-27] MEDS ORDERED: BACT800T5 PO (14:12)
[2020-02-27] MEDS ORDERED: SUMAtriptan SUCCINATE 6 MG/0.5 ML VIAL SC ONE (14:15)
[2020-02-27] MEDS ORDERED: MORPHINE 2 MG/ML 1ML VIAL (J2270) IV ONE (14:45)
[2020-02-27 15:07] VITALS: BP 143/78
== END 2020-02-27 15:10 | disposition home or self-care (01) ==
LOC: M ED 11:42
DX: G44.001 Cluster headache syndrome, unspecified, intractable (principal); A49.02 Methicillin resistant Staphylococcus aureus infection, unspecified site; I10 Essential (primary) hypertension; Z88.8 Allergy status to other drugs, medicaments and biological substances; Z91.013 Allergy to seafood; Z91.030 Bee allergy status; Z79.899 Other long term (current) drug therapy
CPT/HCPCS: 96361; 96372; 96374; 96375; 99284; J1100; J1885; J2270; J2405

== ENCOUNTER → 2020-03-12 | Outpatient (CLI) | payer OTHER ==
[~2020-03-12] MED LIST changes: +BACT800T5 PO; +PROHANCE 279.3MG/ML 15ML VIAL As Ordered ONE; +PROHANCE 279.3MG/ML 5ML VIAL As Ordered ONE
--- NOTE | 2020-03-20 11:22 | REP ---
MRI STUDY OF THE BRAIN WITHOUT AND WITH IV CONTRAST HISTORY: Chronic intractable headaches. Dysembryoplastic neuroepithelial tumor of the brain. TECHNIQUE: Axial, coronal, and sagittal imaging planes are included. T1 and T2 weighted sequences include spin echo, fast spin echo, FLAIR, and diffusion weighted sequences. The gadolinium enhance dose is 20 mL of intravenous ProHance. Comparison MRI study of the brain was reviewed most recently from January 26, 2019. The most remote prior MRI study of the brain in the electronic x-ray jacket is dated January 19, 2013. FINDINGS: A right posterior parietal craniotomy has been performed. There is a small zone of underlying encephalomalacia in the right posterior parietal lobe approximately 3.3 x 2.6 x 1.5 cm in diameter. This is unchanged from comparison MR studies. This is the location where the 2012 prior study showed primary neoplasm. There is no evidence of recurrent mass effect or new abnormal contrast enhancement. Contrast enhancement is noted in normal intracranial vasculature. No abnormal contrast enhancement is appreciated. There is no evidence of infarct or hemorrhage. Ventricular size is unremarkable and unchanged. Diffusion weighted scans show no evidence to suggest acute ischemia. There is no MR evidence of significant paranasal sinus disease. IMPRESSION: Small zone of encephalomalacia underlying the craniotomy site in the right posterior parietal lobe region. No MR evidence to suggest recurrent or residual neoplasm. MTDD
== END ==
LOC: M RAD 11:58
PROVIDERS: ATTEND Physician Assistant Medical
DX: D33.2 Benign neoplasm of brain, unspecified (principal); R51 Headache
CPT/HCPCS: 70553; A9576

== ENCOUNTER 2020-05-21 16:28 | Emergency (ER) | payer OTHER ==
[~2020-05-21] VITALS: Ht 160 cm; Wt 105.1 kg
[~2020-05-21 16:28] MED LIST changes: -PROHANCE 279.3MG/ML 15ML VIAL As Ordered ONE; -PROHANCE 279.3MG/ML 5ML VIAL As Ordered ONE
--- NOTE | 2020-05-21 17:12 | ECGEPIP ---
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
[2020-05-21] MEDS ORDERED: GI COCKTAIL 50ML BTL(HYOSCYAMINE/MAALOX/LIDOCAINE VISCOUS)(1:3:1) PO ONE (17:15)
[2020-05-21] MEDS ORDERED: ASPIRIN 325 MG TAB PO ONE (17:15)
[2020-05-21] MEDS ORDERED: METO1TAB87 PO (17:31)
[2020-05-21 17:36] LABS: BASO % 0.6 % (0.0-1.0); EOS # 0.1 10^3/uL (0.0-0.5); EOS % 1.4 % (0.0-3.0); HEMATOCRIT 35.5 % (36.0-47.0); HEMOGLOBIN 11.1 g/dl (12.0-15.5); LYMPH % 32.5 % (24.0-44.0); MEAN CORPUSCULAR HEMOGLOBIN 24.9 pg (27.0-33.0); MEAN CORPUSCULAR HGB CONC 31.3 g/dl (32.0-36.5); MEAN CORPUSCULAR VOLUME 79.6 fl (80.0-96.0); MONO # 0.4 10^3/uL (0.0-0.8); MONO % 6.4 % (0.0-5.0); NEUTROPHILS # 3.7 10^3/uL (1.5-8.5); NEUTROPHILS % 58.9 % (36.0-66.0); PLATELET COUNT, AUTOMATED 377 10^3/uL (150-450); RED BLOOD COUNT 4.46 10^6/uL (4.00-5.40); WHITE BLOOD COUNT 6.2 10^3/uL (4.0-10.0)
[2020-05-21 17:47] LABS: INR 0.92; PROTHROMBIN TIME 12.6 SECONDS (12.5-14.3)
[2020-05-21 17:48] LABS: PARTIAL THROMBOPLASTIN TIME 28.6 SECONDS (24.2-38.5)
[2020-05-21 17:50] LABS: D-DIMER QUANT 364.12 ng/ml (<500)
[2020-05-21 18:03] LABS: HCG, SERUM QUALITATIVE NEGATIVE (NEGATIVE)
[2020-05-21 18:13] LABS: ALBUMIN 3.7 GM/DL (3.2-5.2); ALT/SGPT 28 U/L (12-78); BILIRUBIN,DIRECT 0.2 MG/DL (0.0-0.2); BILIRUBIN,TOTAL 0.7 MG/DL (0.2-1.0); BLOOD UREA NITROGEN 11 MG/DL (7-18); CALCIUM LEVEL 8.7 MG/DL (8.5-10.1); CARBON DIOXIDE LEVEL 25 MEQ/L (21-32); CHLORIDE LEVEL 107 MEQ/L (98-107); CK-MB VALUE MASS < 1.0 NG/ML (<3.6); CPK CREATINE PHOSPHOKINASE 83 U/L (26-192); CREATININE FOR GFR 0.73 MG/DL (0.55-1.30); FREE T4 0.98 NG/DL (0.76-1.46); GLOMERULAR FILTRATION RATE > 60.0 (>58); GLUCOSE, FASTING 80 MG/DL (70-100); LIPASE 163 U/L (73-393); NT-PRO BNP 70 PG/ML (<125); POTASSIUM SERUM 4.1 MEQ/L (3.5-5.1); SODIUM LEVEL 137 MEQ/L (136-145); TROPONIN I < 0.02 NG/ML (< 0.10)
[2020-05-21] MEDS ORDERED: KETOROLAC 30 MG/ML 1ML VIAL IV ONE (18:45)
--- NOTE | 2020-05-21 19:24 | REPVR ---
PROCEDURE INFORMATION: Exam: CT Chest Without Contrast; Diagnostic Exam date and time: 05/21/2020 6:55 PM Age: 44 years old Clinical indication: Chest pain; Type not specified TECHNIQUE: Imaging protocol: Diagnostic computed tomography of the chest without contrast. 3D rendering (Not supervised by radiologist): MIP and/or 3D reconstructed images were created by the technologist. Radiation optimization: All CT scans at this facility use at least one of these dose optimization techniques: automated exposure control; mA and/or kV adjustment per patient size (includes targeted exams where dose is matched to clinical indication); or iterative reconstruction. COMPARISON: CR Chest, 2 view PA, Lat 10/17/2018 11:39 AM FINDINGS: Lungs: Unremarkable. No consolidation. No masses. Pleural space: Unremarkable. No pneumothorax. No pleural effusion. Heart: Unremarkable. No cardiomegaly. No pericardial effusion. Aorta: Unremarkable. No aortic aneurysm. Lymph nodes: Mediastinal lymph nodes measuring less than 1 cm in the short axis. Stomach and bowel: Evidence of prior gastric surgery. Bones/joints: Unremarkable. No acute fracture. Soft tissues: Unremarkable. IMPRESSION: No acute abnormality. Electronically signed by: Yunier Anderson On 05/21/2020 19:24:50 PM
--- NOTE | 2020-05-21 19:37 | REP ---
INDICATION: CHEST PAIN. COMPARISON: Comparison chest x-ray October 17, 2018.. TECHNIQUE: Portable sitting AP radiograph. FINDINGS: Monitoring electrodes are seen. The lungs are well inflated and clear. The pleural angles are sharp. Heart is not enlarged. Pulmonary vasculature is not increased. IMPRESSION: No active disease. <Electronically signed by Jabier Matt > 05/21/20 1932
[2020-05-21 21:44] LABS: CK-MB VALUE MASS < 1.0 NG/ML (<3.6); CPK CREATINE PHOSPHOKINASE 74 U/L (26-192); MB/CK RELATIVE INDEX 1.35 (< OR =4); TROPONIN I < 0.02 NG/ML (< 0.10)
[2020-05-21 21:45] VITALS: BP 145/93
--- NOTE | 2020-05-24 07:44 | ECGEPIP ---
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
== END 2020-05-21 22:12 | disposition home or self-care (01) ==
LOC: M ED 16:28
DX: R07.9 Chest pain, unspecified (principal); I10 Essential (primary) hypertension; R00.1 Bradycardia, unspecified; I25.2 Old myocardial infarction; G44.009 Cluster headache syndrome, unspecified, not intractable; Z98.84 Bariatric surgery status; Z79.899 Other long term (current) drug therapy
CPT/HCPCS: 71045; 71250; 80048; 80076; 82550; 82553; 83690; 83880; 84439; 84443; 84703; 85025; 85379; 85610; 85730; 93005; 93041; 94760; 96374; 99285; J1885

== ENCOUNTER → 2020-05-31 | Outpatient (CLI) | payer OTHER ==
[~2020-05-31] MED LIST changes: +METO1TAB87 PO
== END ==
LOC: M LABSMTC 14:05
PROVIDERS: ATTEND Family Medicine
DX: Z20.828 Contact with and (suspected) exposure to other viral communicable diseases (principal)

== ENCOUNTER 2020-07-06 18:25 | Emergency (ER) | payer OTHER ==
[~2020-07-06] VITALS: Ht 160 cm; Wt 104.4 kg
--- OUTSIDE RECORDS SUMMARY | 2020-07-06 18:37 | CCD | Summary of Care ---
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 Encounter Details Care Team Description Date Type Department Renee Winslow PA [address] [facility] 1[address] [place] [phone] Painful scar (Primary Dx); Dysembryoplastic neuroepithelial tumor (DNET) of brain; Chronic intractable headache, unspecified headache type 05/08/2020 Office Visit [facility] [place] [address] [facility] 1st Floor [address] [place] [phone] Allergies Comments Active Allergy Reactions Severity Noted Date Bee Venom 05/08/2020 Environmental 05/08/2020 documented as of this encounter (statuses as of 05/08/2020) Medications End Date Status Medication Sig Dispensed Refills Start Date Active topiramate (TOPAMAX) 100 Take 100 mg 0 MG tablet by mouth Two Times Daily Max daily dose of 2 tablets. Active labetalol (NORMODYNE) 300 Take 600 mg 0 MG tablet by mouth Two Times Daily Active amlodipine (NORVASC) 10 Take 10 mg by 0 MG tablet mouth daily Active paroxetine (PAXIL) 20 MG Take 20 mg by 0 tablet mouth daily Active ferrous sulfate 325 (65 Take 325 mg 0 FE) MG tablet by mouth Twice Daily Active losartan (COZAAR) 50 MG Take 50 mg by 0 tablet mouth daily Active levETIRAcetam (KEPPRA) Take 1 tablet 14 tablet 0 0 500 MG tablet by mouth Two 8 Times Daily for 7 days Active nortriptyline (PAMELOR) Take by mouth 0 10 MG capsule Active alprazolam (XANAX) 0.25 Take 0.25 mg 0 MG tablet by mouth nightly as needed for Sleep Active PARoxetine HCl 40 MG Oral Take 40 mg by 0 Tablet (PAXIL) mouth daily Active Metoprolol Tartrate 25 MG 0 Oral Tablet (LOPRESSOR) 0 Active Spironolactone 25 MG Oral 0 Tablet (ALDACTONE) 0 documented as of this encounter (statuses as of 05/08/2020) Active Problems Problem Noted Date Chronic intractable headache 02/09/2019 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 Essential hypertension 03/09/2018 Brain tumor 01/20/2018 Overview: Added automatically from request for luis mcqueen [id number] Breast mass 11/29/2013 Brain tumor (benign) 03/01/2013 documented as of this encounter (statuses as of 05/08/2020) Resolved Problems Problem Noted Date Resolved Date Blurred vision, left eye 03/25/2018 08/11/2018 documented as of this encounter (statuses as of 05/08/2020) Social History Date Tobacco Use Types Packs/Day Years Used Never Smoker Smokeless Tobacco: Never Used Drinks/Week oz/Week Comments Alcohol Use 2-4 Shots of liquor 2.0 - 4.0 every couple weeks Yes Sex Assigned at Date Recorded Not on file Date Recorded COVID-19 Exposure Response 05/08/2020 11:14 AM EST In the last month, have you been in contact with No / Unsure someone who was confirmed or suspected to have Coronavirus / COVID-19? documented as of this encounter Last Filed Vital Signs Reading Time Taken Comments Vital Sign 126/88 05/08/2020 11:22 AM EST Blood Pressure 71 05/08/2020 11:22 AM EST Pulse 36.8 C (98.2 F) 05/08/2020 11:22 AM EST Temperature - - Respiratory Rate - - Oxygen Saturation - - Inhaled Oxygen Concentration 95.3 kg (210 lb) 05/08/2020 11:22 AM EST Weight 160 cm (5' 3") 05/08/2020 11:22 AM EST Height 37.2 05/08/2020 11:22 AM EST Body Mass Index documented in this encounter Progress Notes * Renee Winslow PA - 05/08/2020 11:30 AM EST she is a 44 y.o. year old, right handed female, with PMH of migraines and a righ t parietal cortical lesion, suspicious for low grade glioma that has increased i n size from the 2016 scan to 2018 one. She elected to undergo surgical resectio n. Right parietal craniotomy for resection of brain mass on 03/07/18 but as residual tumor was seen on the post op scan she elected to have a re-resection done 03/11, both by Dr. Pathak. 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 On last telemedicine visit she said that her incision is painful. Headaches are daily and unchanged. She is here on follow up. Has pain intermittent but worse when lying down on the area. Current Outpatient Medications Medication Sig Dispense Refill amlodipine (NORVASC) 10 MG tablet Take 10 mg by mouth daily ferrous sulfate 325 (65 FE) MG tablet Take 325 mg by mouth Twice Daily Metoprolol Tartrate 25 MG Oral Tablet (LOPRESSOR) PARoxetine HCl 40 MG Oral Tablet (PAXIL) Take 40 mg by mouth daily Spironolactone 25 MG Oral Tablet (ALDACTONE) alprazolam (XANAX) 0.25 MG tablet Take 0.25 mg by mouth nightly as needed for Sleep labetalol (NORMODYNE) 300 MG tablet Take 600 mg by mouth Two Times Daily levETIRAcetam (KEPPRA) 500 MG tablet Take 1 tablet by mouth Two Times Nohelia ly for 7 days 14 tablet 0 losartan (COZAAR) 50 MG tablet Take 50 mg by mouth daily nortriptyline (PAMELOR) 10 MG capsule Take by mouth paroxetine (PAXIL) 20 MG tablet Take 20 mg by mouth daily topiramate (TOPAMAX) 100 MG tablet Take 100 mg by mouth Two Times Daily M ax daily dose of 2 tablets. No current facility-administered medications for this visit. Past Medical History: Diagnosis Date Anemia Aortic valve disorder Brain tumor hasn't changed(been there since 2008)just dx 2012 Brain tumor, glioma Depression Diabetes mellitus pre Esophageal ulcer Gall bladder disease Headache(784.0) cluster stevenson's Heart murmur Hiatal hernia Hypertension Miscarriage 2015 MRSA (methicillin resistant staph aureus) culture positive Thyroid disease hypo Past Surgical History: Procedure Laterality Date BREAST BIOPSY Right 2012 fatty tissue BREAST LUMPECTOMY Left 2010 benign BREAST LUMPECTOMY Right 08/2013 benign SECTION GASTRIC BYPASS N/A 10/2018 mole removal 11/28/13 head IN EXCIS SUPRATENT BRAIN TUMOR Right 03/11/2018 Procedure: REVISION RIGHT CRANIOTOMY FOR RESECTION WITH NEURO MONITORING, BRAIN LAB AND INTRAOPERATIVE MRI per Dr. Pathak; Surgeon: Rene Pathak MD; Locat ion: [facility]; Service: Neurosurgery; Laterality: Right; Blood pressure 126/88, pulse 71, temperature 36.8 C (98.2 F), height 1.6 m (5' 3"), weight 95.3 kg (210 lb), not currently . Physical Exam: Gen: NAD Resp: normal work of breathing on RA Wound - well healed, no raised or red scarring. Underlying plating system palpa tere but firm and does not move Imaging/Labs: No new imaging Assessment: 1. Painful scar 2. Dysembryoplastic neuroepithelial tumor (DNET) of brain 3. Chronic intractable headache, unspecified headache type s/p Right parietal craniotomy for resection of brain mass on 03/07 and 03/11/[address] Pathak. No recurrence. She's likely feeling the screws/scar. There is no wound breakdown. Plan: MRI brain with and without contrast in 1 year (ordered on last visit) F/u at that time Renee Winslow PA-C [facility] documented in this encounter Plan of Treatment Care Team Description Date Type Specialty Zee Alejandro MD [address] [place] [address] 4th [place] [address] [phone] 05/22/2020 Office Visit Neurology Health Maintenance Due Date Last Done Comments MMR Vaccines (1 of - 1978 Standard series) Varicella Vaccines ( of 1978 2 - 2-dose childhood series) DTaP,Tdap,and Td Vaccines 1984 (1 - Tdap) HIV Screening 1990 Cervical Cancer Screening 1998 5 years Influenza Vaccine 03/21/2020 Pneumococcal Vaccine: 65+ 2042 Years (1 of 1 - PPSV23) HIB Vaccines Aged Out No longer eligible based on patient's age to complete this topic Hepatitis A Vaccines Aged Out No longer eligibl e based on patient's age to complete this topic Hepatitis B Vaccines Aged Out No longer eligibl e based on patient's age to complete this topic IPV Vaccines Aged Out No longer eligible based on patient's age to complete this topic Pneumococcal Vaccine: Aged Out No longer eligib le based on patient's age to Pediatrics (0 to 5 Years) complete this topic and At-Risk Patients (6 to 64 Years) documented as of this encounter Implants Device Identifier Shelf Expiration Date Model / Serial / L ot Implanted Type Area Manufactur er [id number] / / Cover Burrhole Un3 W/Tab 14mm - BROOKS [id number] [employer]AW[employer] Implanted: Qty: 1 on 03/07/2018 by DIVISION Rene Pathka MD at [facility] [id number] / / Cover Burrhole Un3 W/Tab 14mm - BROOKS [id number] [employer] Implanted: Qty: 1 on 03/07/2018 by Rene Robb MD at [facility] [id number] / / Cover Burrhole Un3 W/Tab 14mm - BROOKS [id number] [employer] Implanted: Qty: 1 on 03/07/2018 by Rene Robb MD at [facility] [id number] / / Graft Duraform Dural [id number] INTEGRA Duragen #[id number] - [id number] [employer] Implanted: Qty: 1 on 03/07/2018 by ES SURG. Warren Cannon MD at [facility] PRO Description:2 in x2 in DuraGen Plus REF# [id number] / / Screw Uniii Axs Sd Lp 1.5x5mm - BROOKS [id number] [employer] Implanted: Qty: 4 on 03/07/2018 by Warren Brand MD at [facility] Explanted: Qty: 3 on 03/11/2018 by Rene Pathak MD at [facility] 09/18/2020 [id number] / NA / [id number] Graft Dural Onlay [id number] - Sna Right: Cranial IN TEGRA Implanted: Qty: 1 on 03/11/2018 by LIFESCIENC Rene Pathak MD at [facility] PRO [id number] / / Plate Un3 Rectangle - [id number] Right: Cranial STRYK ER Implanted: Qty: 1 on 03/11/2018 by [employer] Rene Pathak MD at [facility] [id number] / / Screw Uniii Axs Sd Lp 1.5x5mm - Right: Cranial STRYK ER [id number] [employer] Implanted: Qty: 12 on 03/11/2018 by DIVISION Rene Pathak MD at [facility] documented as of this encounter Results Not on filedocumented in this encounter Visit Diagnoses Diagnosis Painful scar - Primary Scar condition and fibrosis of skin Dysembryoplastic neuroepithelial tumor (DNET) of brain Chronic intractable headache, unspecifi ed headache type documented in this encounter
--- OUTSIDE RECORDS SUMMARY | 2020-07-06 18:37 | CCD | Summary of Care ---
Author Author [facility] Organization [facility] Address Unknown Phone Unavailable Care Team Providers Care Dealer Relationship Manager Name Role Phone Juan A Long MD PCP Reason for Referral * Diagnostic Radiology (Routine) Referred By Contact Referred To Contact Status Reason Specialty Diagnoses / Procedures Renee Winslow PA [address] [place] [phone] Email: [email or web address] Open Radiology Diagnoses Dysembryoplastic neuroepithelial tumor (DNET) of brain P rocedures MR Brain with and without Contrast * Consultation (Routine) Referred By Contact Referred To Contact Status Reason Specialty Diagnoses / Procedures Renee Winslow PA [address] [place] [phone] Email: [email or web address] Neurology Provider-Based [address] 4th Floor, [address] [place] [address] [facility] Neurology Diagnoses Required Chronic intractable headache, unspecified headache type Reason for Visit * Reason Comments Follow-up telemed Encounter Details Care Team Description Date Type Department Renee Winslow PA [address] [place] [phone] Chronic intractable headache, unspecifie d headache type (Primary Dx); Dysembryoplastic neuroepithelial tumor (DNET) of brain 04/17/2020 Telemedicine [facility] [place] [address] [facility] 1st Floor [address] [place] [phone] Allergies No Known Allergiesdocumented as of this encounter (statuses as of 04/17/2020) Medications End Date Status Medication Sig Dispensed [...] by mouth nightly as needed for Sleep documented as of this encounter (statuses as of 04/17/2020) Active Problems Problem Noted Date Chronic intractable headache 02/09/2019 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 Essential hypertension 03/09/2018 Brain tumor 01/20/2018 Overview: Added automatically from request for luis [facility]cqueen [id number] Breast mass 11/29/2013 Brain tumor (benign) 03/01/2013 documented as of this encounter (statuses as of 04/17/2020) Resolved Problems Problem Noted Date Resolved Date Blurred vision, left eye 03/25/2018 08/11/2018 documented as of this encounter (statuses as of 04/17/2020) Social History Date Tobacco Use Types Packs/Day Years Used Never Smoker Smokeless Tobacco: Never Used Drinks/Week oz/Week Comments Alcohol Use 2-4 Shots of liquor 2.0 - 4.0 every couple weeks Yes Sex Assigned at Date Recorded Not on file documented as of this encounter Last Filed Vital Signs Not on filedocumented in this encounter Progress Notes * Renee Winslow PA - 04/17/2020 1:30 PM EDT Payton Kumar has been called for a follow up visit. The telephone service was performed during the state of emergency during the COVID-19 outbreak. I have discussed this request and the patient has given their verbal consent to use Telecommunications in lieu of a [id number] visit in the office. she is a 44 y.o. 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 I have called the patient on follow-up after her routine surveillance MRI. She complains of daily headaches. She states she never saw a neurologist and not smith re what happened to the referral. She also complains that her incision is painf ul. She denies any openings or wound breakdown. She denies any other symptoms including fevers, chills, nausea, vomiting, weakness or numbness. Current Outpatient Medications Medication Sig Dispense Refill alprazolam (XANAX) 0.25 MG tablet Take 0.25 mg by mouth nightly as needed for Sleep amlodipine (NORVASC) 10 MG tablet Take 10 mg by mouth daily ferrous sulfate 325 (65 FE) MG tablet Take 325 mg by mouth Twice Daily labetalol (NORMODYNE) 300 MG tablet Take 600 [...] stevenson's Heart murmur Hiatal hernia Hypertension Miscarriage 2014 MRSA (methicillin resistant staph aureus) culture positive Thyroid disease hypo Past Surgical History: Procedure Laterality Date BREAST BIOPSY Right 2012 fatty tissue BREAST LUMPECTOMY Left 2010 benign BREAST LUMPECTOMY Right 08/2013 benign SECTION GASTRIC BYPASS N/A 10/2018 mole removal 11/28/13 head [place] EXCIS SUPRATENT BRAIN TUMOR Right 03/11/2018 Procedure: REVISION RIGHT CRANIOTOMY FOR RESECTION WITH NEURO MONITORING, BRAIN LAB AND INTRAOPERATIVE MRI per Dr. Pathak; Surgeon: Rene Pathak MD; Locat ion: [facility]; Service: Neurosurgery; Laterality: Right; not currently . Physical Exam: There has been no physical exam done secondary to this being a t elephone visit. Speech is fluent with good comprehension Imaging/Labs: I examined the MRI 03/12/2020 Right posterior parietal encephalomalacia noted and unchanged There is no recurrence of tumor Assessment: 1. Chronic intractable headache, unspecified headache type Referral to Neurolog y 2. Dysembryoplastic neuroepithelial tumor (DNET) of brain MR Brain with and wit hout Contrast Creatinine with GFR s/p Right parietal craniotomy for resection of brain mass on 03/07 and 03/11/[address] Pathak. No recurrence. I have offered an appointment to see the wound. I cannot explain the soreness o f the wound unless it scar tissue or wound breakdown Plan: F/u for wound check, we will call to make an appointment Rereferral to neurologist for her headaches MRI brain with and without contrast in 1 year I have spent 5-10 minutes reviewing imaging and discussing current symptoms, fi ndings and recommendations. Renee Winslow PA-C [facility] documented in this encounter Plan of Treatment Order Schedule Name Type Priority Associated Diag noses Expected: 04/17/2020, Expires: 2 MR Brain with and without Imaging Routine Dyse mbryoplastic Contrast neuroepithelial tumor (DNET) of brain 1 Occurrences starting 04/17/2020 until 04/17/2021 Creatinine with GFR Lab Routine Dysembryop lastic neuroepithelial tumor (DNET) of brain Order Schedule Name Type Priority Associated Diag noses Ordered: 04/17/2020 Referral to Neurology Outpatient Routine Chronic intractable Referral headache, unspecified headache type Health Maintenance Due Date Last Done Comments MMR Vaccines (1 of - 1978 Standard series) Varicella Vaccines (1 of 1978 2 - 2-dose childhood series) DTaP,Tdap,and Td Vaccines 1984 (1 - Tdap) HIV Screening 1990 Cervical Cancer Screening 1998 5 years Influenza Vaccine 03/21/2020 Pneumococcal Vaccine: 65+ 2042 Years (1 of - PPSV23) HIB Vaccines Aged Out No [...] / L ot Implanted Type Area Manufactur [id number] / / Cover Burrhole Un3 W/Tab 14mm - BROOKS [id number] [employer]PORATIO Implanted: Qty: 1 on 03/07/2018 by Rene Russell MD at [facility] [id number] / / Cover Burrhole Un3 W/Tab 14mm - BROOKS [id number] [employer] Implanted: Qty: 1 on 03/07/2018 by Rene Russell MD at [facility] [id number] / / Cover Burrhole Un3 W/Tab 14mm - BROOKS [id number] [employer]ATIO Implanted: Qty: 1 on 03/07/2018 by Rene Russell MD at [facility] [id number] / / Graft Duraform Dural [id number] INTEGRA Duragen #[id number] - [id number] [employer] Implanted: Qty: 1 on 03/07/2018 by [facility]G. [facility] at [facility] PRO Description:2 in x2 in DuraGen Plus REF# [id number] / / Screw Uniii Axs Sd Lp 1.5x5mm - BROOKS [id number] [employer] Implanted: Qty: 4 on 03/07/2018 by Warren Cornejo MD at [facility] Explanted: Qty: 3 on 03/11/2018 by Rene [facility]ak MD at [facility] 09/18/2020 [id number] / NA / [id number] Graft Dural Onlay [id number] - Sna Right: Cranial IN TEGRA Implanted: Qty: 1 on 03/11/2018 by LIFESCIENC Rene Pathak MD at [facility] [id number] / / Plate Un3 Rectangle - [id number] Right: Cranial STRYK ER Implanted: Qty: 1 on 03/11/2018 by CORPORATIO Rene Pathak MD at [facility] [id number] / / Screw Uniii Axs Sd Lp 1.5x5mm - Right: Cranial STRYK ER [id number] [employer] Implanted: Qty: 12 on 03/11/2018 by Rene Russell MD at [facility] documented as of this encounter Results Not on filedocumented in this encounter Visit Diagnoses Diagnosis Chronic intractable headache, unspecifi ed headache type - Primary Dysembryoplastic neuroepithelial tumor (DNET) of brain documented in this encounter
--- OUTSIDE RECORDS SUMMARY | 2020-07-06 18:37 | CCD | Summary of Care ---
Author Author [facility] Organization [facility] Address Unknown Phone Unavailable Care Team Providers Care Public Works Director Name Role Phone Naga Mahtews MD PCP Reason for Referral * Procedure/Treatment (Routine) Referred By Contact Referred To Contact Status Reason Specialty Diagnoses / Procedures Zee Alejandro MD [address] [facility] [address] [place] [address] Email: [email or web address] Infusion Center Neurology Private Practice [facility] [address] [place] [address] Open Specialty Services Infusion Therapy Diagnoses Required Chronic migraine Reason for Visit * Reason Comments New Patient Encounter Details Care Team Description Date Type Department Zee Alejandro MD [address] [facility] [address]th [place] [address] [phone] Chronic migraine (Primary Dx) 05/22/2020 Telemedicine [facility] [address] [facility] [address], [address] [place] [phone] Allergies Comments Active Allergy Reactions Severity Noted Date Bee Venom 05/08/2020 Shaky and vomiting Iodinated Diagnostic 05/22/2020 Agents Environmental 05/08/2020 documented as of this encounter (statuses as of 05/22/2020) Medications End Date Status Medication Sig Dispensed Refills Start Date Active PARoxetine HCl 40 MG Oral Take 40 mg by 0 Tablet (PAXIL) mouth daily Active Metoprolol Tartrate 25 MG Take 25 mg by 0 04/21 Oral Tablet (LOPRESSOR) mouth daily 0 Active Spironolactone 25 MG Oral Take 25 mg by 0 04/21 Tablet (ALDACTONE) mouth daily 0 05/22/2020 Discontinued topiramate (TOPAMAX) 100 Take 100 mg 0 MG tablet by mouth Two Times Daily Max daily dose of 2 tablets. 05/22/2020 Discontinued labetalol (NORMODYNE) 300 Take 600 mg 0 MG tablet by mouth Two Times Daily 05/22/2020 Discontinued amlodipine (NORVASC) 10 Take 10 mg by 0 MG tablet mouth daily 05/22/2020 Discontinued paroxetine (PAXIL) 20 MG Take 40 mg by 0 tablet mouth daily 05/22/2020 Discontinued ferrous sulfate 325 (65 Take 325 mg 0 FE) MG tablet by mouth Twice Daily 05/22/2020 Discontinued losartan (COZAAR) 50 MG Take 50 mg by 0 tablet mouth daily 05/22/2020 Discontinued levETIRAcetam (KEPPRA) Take 1 tablet 14 tablet 0 0 500 MG tablet by mouth Two 8 Times Daily for 7 days 05/22/2020 Discontinued nortriptyline (PAMELOR) Take by mouth 0 10 MG capsule 05/22/2020 Discontinued alprazolam (XANAX) 0.25 Take 0.25 mg 0 MG tablet by mouth nightly as needed for Sleep documented as of this encounter (statuses as of 05/22/2020) Active Problems Problem Noted Date Chronic intractable headache 02/09/2019 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 Essential hypertension 03/09/2018 Brain tumor 01/20/2018 Overview: Added automatically from request for luis mcqueen [id number] Breast mass 11/29/2013 Brain tumor (benign) 03/01/2013 documented as of this encounter (statuses as of 05/22/2020) Resolved Problems Problem Noted Date Resolved Date Blurred vision, left eye 03/25/2018 08/11/2018 documented as of this encounter (statuses as of 05/22/2020) Social History Date Tobacco Use Types Packs/Day Years Used Never Smoker Smokeless Tobacco: Never Used Drinks/Week oz/Week Comments Alcohol Use 2-4 Shots of liquor 2.0 - 4.0 every couple weeks Yes Sex Assigned at Date Recorded Not on file Date Recorded COVID-19 Exposure Response 05/22/2020 11:06 AM EST In the last month, have you been in contact with Ronda ble to assess someone who was confirmed or suspected to have Coronavirus / COVID-19? documented as of this encounter Last Filed Vital Signs Reading Time Taken Comments Vital Sign - - Blood Pressure - - Pulse - - Temperature - - Respiratory Rate - - Oxygen Saturation - - Inhaled Oxygen Concentration 99.8 kg (220 lb) 05/22/2020 3:28 PM EST Weight 160 cm (5' 3") 05/22/2020 3:28 PM EST Height 38.97 05/22/2020 3:28 PM EST Body Mass Index documented in this encounter Progress Notes * Zee Alejandro MD - 05/22/2020 3:30 PM EST This is a tele-medical visit. The patient was informed of the risks including se curity breach, technological failure, inability to perform a comprehensive physi syk exam which could delay or prevent an accurate diagnosis, and potential compl ications from treatment decisions rendered over a telemedical platform. The ephraim ent understands and consented to the use of tele-health services. The service was provided by means of an audio/video telecommunication. Neurology [facility] History of presenting illness Payton Kumar is a 44 y.o. female who presents to the clinic for evaluation of headache. She has had migraines for few years. [facility] and had been controlled with Botox. However, she was discharged [facility] due to missing appointments which she attributed to hospital stays. Migraines started in 2007. She has them almost daily, with almost only 3 headach e free days a month. Headache is right frontal, but can be bilateral. Pain is co nstant aching with rare sharp pain. It can be 8/10. There is occasional nausea. There is a mild light and noise sensitivity. While on Botox, she was getting hitesh ost 1-2 headaches a month, and were easily treatable. She was tried on Nortriptyline, Topamax, Imitrex and paroxetine (for depression) . All were not effective. She takes Lopressor for HTN and palpitations. She had a hysterectomy 2019. No relation was noted before between her migraines and periods. Of note, she had DENT tumor discovered during a scan for headache. It was excise d in 02/[address] Pathak after it was noted to grow. 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 Review of Systems Complete ROS was obtained and is negative except for what is mentioned in HPI Past Medical History: Diagnosis Date Anemia Aortic valve disorder Brain tumor hasn't changed(been there since 2008)just dx 2012 Brain tumor, glioma Depression Diabetes mellitus pre Esophageal ulcer Gall bladder disease Headache(784.0) cluster stevenson's Heart murmur Hiatal hernia Hypertension Miscarriage 2014 MRSA (methicillin resistant staph aureus) culture positive Thyroid disease hypo Past Surgical History: Procedure Laterality Date BREAST BIOPSY Right 2013 fatty tissue BREAST LUMPECTOMY Left 2010 benign BREAST LUMPECTOMY Right 08/2013 benign SECTION GASTRIC BYPASS N/A 10/2018 mole removal 11/28/13 head VT EXCIS SUPRATENT BRAIN TUMOR Right 03/11/2018 Procedure: REVISION RIGHT CRANIOTOMY FOR RESECTION WITH NEURO MONITORING, BRAIN LAB AND INTRAOPERATIVE MRI per Dr. Pathak; Surgeon: Rene Pathak MD; Locat ion: [facility]; Service: Neurosurgery; Laterality: Right; Social History Socioeconomic History Marital status: Single Spouse name: Not on file Number of children: Not on file Years of education: Not on file Highest education level: Not on file Occupational History Employer: UNEMPLOYED Social Needs Financial resource strain: Not on file Food insecurity Worry: Not on file Inability: Not on file Transportation needs Medical: Not on file Non-medical: Not on file Tobacco Use Smoking status: Never Smoker Smokeless tobacco: Never Used Substance and Sexual Activity Alcohol use: Yes Alcohol/week: 2.0 - 4.0 standard drinks Types: 2 - 4 Shots of liquor per week Comment: every couple weeks Drug use: No Sexual activity: Not on file Lifestyle Physical activity Days per week: Not on file Minutes per session: Not on file Stress: Not on file Relationships Social connections Talks on phone: Not on file Gets together: Not on file Attends yazidi service: Not on file Active member of club or organization: Not on file Attends meetings of clubs or organizations: Not on file Relationship status: Not on file Intimate partner violence Fear of current or ex partner: Not on file Emotionally abused: Not on file Physically abused: Not on file Forced sexual activity: Not on file Other Topics Concern Not on file Social History Narrative Not on file Family History Problem Relation Age of Onset Hypertension Mother Early Father Heart disease Father [place] Aneurysm Father heart Breast cancer Maternal Grandmother Cancer Maternal Grandmother breast Allergies Allergen Reactions Bee Venom Contrast Dye [Iodinated Diagnostic Agents] Shaky and vomiting Environmental Current Outpatient Medications Medication Sig Dispense Refill Metoprolol Tartrate 25 MG Oral Tablet (LOPRESSOR) Take 25 mg by mouth jose ly PARoxetine HCl 40 MG Oral Tablet (PAXIL) Take 40 mg by mouth daily Spironolactone 25 MG Oral Tablet (ALDACTONE) Take 25 mg by mouth daily alprazolam (XANAX) 0.25 MG tablet Take 0.25 [...] Take 1 tablet by mouth Two Times Jose ly for 7 days (Patient not taking: Reported on 05/22/2020) 14 tablet 0 losartan (COZAAR) 50 MG tablet Take 50 mg by mouth daily nortriptyline (PAMELOR) 10 MG capsule Take by mouth paroxetine (PAXIL) 20 MG tablet Take 40 mg by mouth daily topiramate (TOPAMAX) 100 MG tablet Take 100 mg by mouth Two Times Daily M ax daily dose of 2 tablets. No current facility-administered medications for this visit. Physical exam Visit Vitals Ht 1.6 m (5' 3") Wt 99.8 kg (220 lb) LMP 02/15/2018 (Approximate) BMI 38.97 kg/m General Examination: In no apparent distress, well developed and well nourished, and cooperative HEENT : atraumatic, normocephalic. Neck: supple Chest: Breathing comfortably on room air Extremities : no deformity, or edema Neurological exam: Alert and oriented x3, speech normal. Pupils symmetric Extraocular movements intact with no nystagmus. Face symmetric Tongue is in midline Muscle strength appears normal No resting or positional tremor. No dysmetria Gait narrow based and steady Images MRI brain 2019: no tumor recurrence. Assessment and plan Chronic migraine Plan Prior-auth to resume Botox for chronic migraine. RTC in 6 months documented in this encounter Plan of Treatment Order Schedule Name Type Priority Associated Diag noses Ordered: 05/22/2020 Referral to Neurology Outpatient Routine Chronic migraine Infusion Referral Health Maintenance Due Date Last Done Comments [...] L ot Implanted Type Area Manufactur er [id number] / / Cover Burrhole Un3 W/Tab 14mm - BROOKS [id number] CORPORATIO Implanted: Qty: 1 on 03/07/2018 by Rene Russell MD at [facility] [id number] / / Cover Burrhole Un3 W/Tab 14mm - BROOKS [id number] CORPORATIO Implanted: Qty: 1 on 03/07/2018 by Rene Russell MD at [facility] [id number] / / Cover Burrhole Un3 W/Tab 14mm - BROOKS [id number] CORPORATIO Implanted: Qty: 1 on 03/07/2018 by Rene Russell MD at [facility] [id number] / / Graft Duraform Dural [id number] INTEGRA Duragen #[id number] - [id number] LIFESCIENC Implanted: Qty: 1 on 03/07/2018 by ES SURGWarren Gomez [facility] at [facility] Description:2 in x2 in DuraGen Plus REF# [id number] / / Screw Uniii Axs Sd Lp 1.5x5mm - BROOKS [id number] CORPORATIO Implanted: Qty: 4 on 03/07/2018 by Warren Cornejo MD at [facility] Explanted: Qty: 3 on 03/11/2018 by Rene Pathak MD at [facility] 09/18/2020 [id number] / NA / [id number] Graft Dural Onlay [id number] - Sna Right: Cranial IN TEGRA Implanted: Qty: 1 on 03/11/2018 by LIFESCIENC Rene Pathak MD at [facility] [id number] / / Plate Un3 Rectangle - [id number] Right: Cranial STRYK ER Implanted: Qty: 1 on 03/11/2018 by CORPORATIO Rene Pathak MD at [facility] [id number] / / Screw Uniii Axs Sd Lp 1.5x5mm - Right: Cranial STRYK ER [id number] CORPORATIO Implanted: Qty: 12 on 03/11/2018 by Rene Russell MD at [facility] documented as of this encounter Results Not on filedocumented in this encounter Visit Diagnoses Diagnosis Chronic migraine - Primary Chronic migraine without aura, without mention of intractable migraine without mention of status migrainosus documented in this encounter
--- OUTSIDE RECORDS SUMMARY | 2020-07-06 18:37 | CCD | Summary of Care ---
Author Author [facility] Organization [facility] Address Unknown Phone Unavailable Care Team Providers Care Compliance Associate Name Role Phone Juan A Long MD PCP Reason for Visit * Reason Comments No Show Encounter Details Care Team Description Date Type Department Renee Winslow PA [address] [facility] [address] [place] [phone] No-show for appointment (Primary Dx) 03/27/2020 Telemedicine [facility] [place] [address] [facility] 1st Floor [address] [place] [phone] Allergies No Known Allergiesdocumented as of this encounter (statuses as of 04/15/2020) Medications End Date Status Medication Sig Dispensed [...] as of this encounter (statuses as of 04/15/2020) Active Problems Problem Noted Date Chronic intractable headache 02/09/2019 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 Essential hypertension 03/09/2018 Brain tumor 01/20/2018 Overview: Added automatically from request for luis mcqueen [id number] Breast mass 11/29/2013 Brain tumor (benign) 03/01/2013 documented as of this encounter (statuses as of 04/15/2020) Resolved Problems Problem Noted Date Resolved Date Blurred vision, left eye 03/25/2018 08/11/2018 documented as of this encounter (statuses as of 04/15/2020) Social History Date Tobacco Use Types Packs/Day Years Used Never Smoker Smokeless Tobacco: Never Used Drinks/Week oz/Week Comments Alcohol Use 2-4 Shots of liquor 2.0 - 4.0 every couple weeks Yes Sex Assigned at Date Recorded Not on file documented as of this encounter Last Filed Vital Signs Not on filedocumented in this encounter Plan of Treatment Care Team Description Date Type Specialty Renee Winslow PA [address] [place] [address] 04/17/2020 Telemedicine Neurosurgery Health Maintenance Due Date Last Done Comments [...] L ot Implanted Type Area Manufactur er [id number] / / Cover Burrhole Un3 W/Tab 14mm - BROOKS [id number] ORTHO Implanted: Qty: 1 on 03/07/2018 by Rene Pathak MD at [facility] [id number] / / Cover Burrhole Un3 W/Tab 14mm - BROOKS [id number] ORTHO Implanted: Qty: 1 on 03/07/2018 by Rene Pathak MD at [facility] [id number] / / Cover Burrhole Un3 W/Tab 14mm - BROOKS [id number] ORTHO Implanted: Qty: 1 on 03/07/2018 by Rene Pathak MD at [facility] [id number] / / Graft Duraform Dural [id number] INTEGRA Duragen #[id number] - [id number] LIFESCIENC Implanted: Qty: 1 on 03/07/2018 by ES SURG. Warren Cannon MD at [facility] PRO Description:2 in x2 in DuraGen Plus REF# [id number] / / Screw Uniii Axs Sd Lp 1.5x5mm - BROOKS [id number] ORTHO Implanted: Qty: 4 on 03/07/2018 by Warren Cannon MD at [facility] Explanted: Qty: 3 on 03/11/2018 by Rene Pathak MD at [facility] 09/18/2020 [id number] / NA / [id number] Graft Dural Onlay [id number] - Sna Right: Cranial IN TEGRA Implanted: Qty: 1 on 03/11/2018 by LIFESCIENC Rene Pathak MD at [facility] PRO [id number] / / Plate Un3 Rectangle - [id number] Right: Cranial STRYK ER Implanted: Qty: 1 on 03/11/2018 by ORTHO Rene Pathak MD at [facility] [id number] / / Screw Uniii Axs Sd Lp 1.5x5mm - Right: Cranial STRYK ER [id number] ORTHO Implanted: Qty: 12 on 03/11/2018 by Rene Pathak MD at [facility] documented as of this encounter Results Not on filedocumented in this encounter Visit Diagnoses Diagnosis No-show for appointment - Primary documented in this encounter
--- OUTSIDE RECORDS SUMMARY | 2020-07-06 18:37 | CCD | Summary of Care ---
Author Author [facility] Organization [facility] Address Unknown Phone Unavailable Care Team Providers Care Elderly Sitter Name Role Phone Naga Mathews MD PCP Reason for Visit * Reason Comments Headache * Procedure/Treatment (Routine) Referred By Contact Referred To Contact Status Reason Specialty Diagnoses / Procedures Zee Alejandro MD [address] [place] [phone] Email: [email or web address] Infusion Center Neurology Private Practice [address] [place] [phone] Authorized Specialty Services Neurology / Diagnoses Required Infusion Therapy Chronic migraine P rocedures ME INJECTION,ONABOTUL INUMTOXINA Encounter Details Care Team Description Date Type Department Zee Alejandro MD [address] [place] [address] [phone] Chronic migraine (Primary Dx) 06/12/2020 Office Visit [facility] Neurology Infusion Center at [address] [phone] Allergies Comments Active Allergy Reactions Severity Noted Date Bee Venom 05/08/2020 Shaky and vomiting Iodinated Diagnostic 05/22/2020 Agents Environmental 05/08/2020 documented as of this encounter (statuses as of 06/12/2020) Medications End Date Status Medication Sig Dispensed Refills Start Date Active PARoxetine HCl 40 MG Oral Take 40 mg by 0 Tablet (PAXIL) mouth daily Active Metoprolol Tartrate 25 MG Take 25 mg by 0 04/21 Oral Tablet (LOPRESSOR) mouth daily 0 Active Spironolactone 25 MG Oral Take 25 mg by 0 04/21 Tablet (ALDACTONE) mouth daily 0 documented as of this encounter (statuses as of 06/12/2020) Active Problems Problem Noted Date Chronic intractable headache 02/09/2019 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 Essential hypertension 03/09/2018 Brain tumor 01/20/2018 Overview: Added automatically from request for smith charisse [id number] Breast mass 11/29/2013 Brain tumor (benign) 03/01/2013 documented as of this encounter (statuses as of 06/12/2020) Resolved Problems Problem Noted Date Resolved Date Blurred vision, left eye 03/25/2018 08/11/2018 documented as of this encounter (statuses as of 06/12/2020) Social History Date Tobacco Use Types Packs/Day Years Used Never Smoker Smokeless Tobacco: Never Used Drinks/Week oz/Week Comments Alcohol Use 2-4 Shots of liquor 2.0 - 4.0 every couple weeks Yes Sex Assigned at Date Recorded Not on file Date Recorded COVID-19 Exposure Response 06/12/2020 10:58 AM EST In the last month, have you been in contact with No / Unsure someone who was confirmed or suspected to have Coronavirus / COVID-19? documented as of this encounter Last Filed Vital Signs Not on filedocumented in this encounter Progress Notes * Zee Alejandro MD - 06/12/2020 11:00 AM EST Botox Clinic Date Of Service: 06/12/2020 Diagnosis: Chronic Migraine History: Payton is a 44 y.o. year old Female with chronic migraine headaches who h as failed multiple medical interventions. This is her first injections with us. Risk of Botox therapy were explained, including neck pain and/or weakness,headac he, eye lid droopiness, facial muscle weakness, and hypersensitivity. Patient u nderstands risks and wishes to proceed. The patient was advised that Botox Injec tion may not be effective in relieving the chronic headaches. The patient has f radha multiple interventions, so I agree that Botox is the most appropriate scottie tment. Botulinum toxin concentrations, 5 units per .1 cc. Under sterile and controlled conditions using aseptic technique, botulinum toxin type A was administered. A 30 gauge needle was used. The following muscles we re injected. 1. Right Frontalis, 2 sites, 5 units one site and 10 units the second for a tota l of 15 units. 2. Left Frontalis, 2 sites, 5 units one site and 10 units the second for a tota l of 15 units. 3. Right Natural Gas Inspector, 1 site, 5 units per site for a total of 5 units. 4. Left Natural Gas Inspector, 1 site, 5 units per site for a total of 5 units. 5. Procerus, 1 site, 5 units per site for a total of 5 units. 6. Right Temporalis, 4 sites, 5 units per site except for 1 of 10 units for a to domingo of 25 units. 7. Left Temporalis, 4 sites, 5 units per site except for 1 of 10 units for a tot al of 25 units. 8. Right Occipitalis, 3 sites, 5 units per site for a total of 15 units. 9. Left Occipitalis, 3 sites, 5 units per site for a total of 15 units. 10. Right Cervical Paraspinal, 2 sites, 5 units per site for a total of 10 units . 11. Left Cervical Paraspinal, 2 sites, 5 units per site for a total of 10 units. 12. Right Trapezius, 3 sites, 5 units per site except for 1 of 10 units for a to domingo of 20 units. 13. Left Trapezius, 3 sites, 5 units per site except for 1 of 10 units for a tot al of 20 units. In all, 185 units of botulinum toxin were injected and 15 units were discarded. The patient tolerated the procedure without adverse side effects. Post inject ion instructions are given. She will return for a reevaluation and treatment in 3 months. documented in this encounter Plan of Treatment Care Team Description Date Type Specialty Zee Alejandro MD [address] [place] [phone] 09/04/2020 Office Visit Infusion Therapy Zee Alejandro MD [address] [place] [address] [phone] 11/26/2020 Office Visit Neurology Health Maintenance Due Date [...] L ot Implanted Type Area Manufactur er [id number] / / Cover Burrhole Un3 W/Tab 14mm - BROOKS [id number] CORPORATIO Implanted: Qty: 1 on 03/07/2018 by Rene Russell MD at [facility] [id number] / / Cover Burrhole Un3 W/Tab 14mm - BROOKS [id number] CORPORATIO Implanted: Qty: 1 on 03/07/2018 by Rene Russell MD at [facility] [id number] / / Cover Burrhole Un3 W/Tab 14mm - BROOKS [id number] CORPORATIO Implanted: Qty: 1 on 03/07/2018 by Rene Russell MD at [facility] [id number] / / Graft Duraform Dural [id number] INTEGRA Duragen #[id number] - [id number] LIFESCIENC Implanted: Qty: 1 on 03/07/2018 by ES SURGWarren Gomez MD at [facility] PRO Description:2 in x2 in DuraGen Plus REF# [id number] / / Screw Uniii Axs Sd Lp 1.5x5mm - BROOKS [id number] CORPORATIO Implanted: Qty: 4 on 03/07/2018 by Warren Cornejo MD at [facility] Explanted: Qty: 3 on 03/11/2018 by Rene Pathak MD at [facility] 09/18/2020 [id number] / NA / [id number] Graft Dural Onlay [id number] - Sna Right: Cranial IN TEGRA Implanted: Qty: 1 on 03/11/2018 by LIFESCIENC Rene Pathak MD at [facility] [id number] / / Plate Un3 Rectangle - [id number] Right: Cranial STRYK ER Implanted: Qty: 1 on 03/11/2018 by Rene Quintero MD at [facility] [id number] / / Screw Uniii Axs Sd Lp 1.5x5mm - Right: Cranial STRYK ER [id number] CORPORATIO Implanted: Qty: 12 on 03/11/2018 by Rene Russell MD at [facility] documented as of this encounter Results Not on filedocumented in this encounter Visit Diagnoses Diagnosis Chronic migraine - Primary Chronic migraine without aura, without mention of intractable migraine without mention of status migrainosus documented in this encounter
--- OUTSIDE RECORDS SUMMARY | 2020-07-06 18:38 | CCD ---
Author Author [facility] Organization [facility] Address Unknown Phone Unavailable Care Team Providers Care Senior Web Applications Developer Name Role Phone Mustapha Alejandra PA Unavailable Unavailable Alejandra, L Rosemarie PA Unavailable Unavailable Alejandra, L Rosemarie PA Unavailable Unavailable Alejandra, L Rosemarie PA Unavailable Unavailable Alejandra, L Rosemarie PA Unavailable Unavailable Alejandra, L Rosemarie PA Unavailable Unavailable Alejandra, L Rosemarie PA Unavailable Unavailable Alejandra, L Rosemarie PA Unavailable Unavailable Alejandra, L Rosemarie PA Unavailable Unavailable Alejandra, L Rosemarie PA Unavailable Unavailable Alejandra, L Rosemarie PA Unavailable Unavailable Alejandra, L Rosemarie PA Unavailable Unavailable Alejandra, L Rosemarie PA Unavailable Unavailable Alejandra, L Rosemarie PA Unavailable Unavailable Alejandra, L Rosemarie PA Unavailable Unavailable Alejandra, L Rosemarie PA Unavailable Unavailable Alejandra, L Rosemarie PA Unavailable Unavailable Alejandra, L Rosemarie PA Unavailable Unavailable Alejandra, L Rosemarie PA Unavailable Unavailable Alejandra, L Rosemarie PA Unavailable Unavailable Alejandra, L Rosemarie PA Unavailable Unavailable Alejandra, L Rosemarie PA Unavailable Unavailable Alejandra, L Rosemarie PA Unavailable Unavailable Alejandra, L Rosemarie PA Unavailable Unavailable Alejandra, L Rosemarie PA Unavailable Unavailable Alejandra, L Rosemarie PA Unavailable Unavailable Alejandra, L Rosemarie PA Unavailable Unavailable Alejandra, L Rosemarie PA Unavailable Unavailable Alejandra, L Rosemarie PA Unavailable Unavailable Alejandra, L Rosemarie PA Unavailable Unavailable Alejandra, L Rosemarie PA Unavailable Unavailable Alejandra, L Rosemarie PA Unavailable Unavailable Alejandra, L Rosemarie PA Unavailable Unavailable Alejandra, L Rosemarie PA Unavailable Unavailable Alejandra, L Rosemarie PA Unavailable Unavailable Alejandra, L Rosemarie PA Unavailable Unavailable Stuck, K Renee PA Unavailable Unavailable Stuck, K Renee PA Unavailable Unavailable Stuck, K Renee PA Unavailable Unavailable Stuck, K Renee PA Unavailable Unavailable Stuck, K Renee PA Unavailable Unavailable Stuck, K Renee PA Unavailable Unavailable Stuck, K Renee PA Unavailable Unavailable Stuck, K Renee PA Unavailable Unavailable Stuck, K Renee PA Unavailable Unavailable Stuck, K Renee PA Unavailable Unavailable Stuck, K Renee PA Unavailable Unavailable Stuck, K Renee PA Unavailable Unavailable Stuck, K Renee PA Unavailable Unavailable Stuck, K Renee PA Unavailable Unavailable Stuck, K Renee PA Unavailable Unavailable Stuck, K Renee PA Unavailable Unavailable Stuck, K Renee PA Unavailable Unavailable Stuck, K Renee PA Unavailable Unavailable Stuck, K Renee PA Unavailable Unavailable Stuck, K Renee PA Unavailable Unavailable Stuck, K Renee PA Unavailable Unavailable Stuck, K Renee PA Unavailable Unavailable Stuck, K Renee PA Unavailable Unavailable Stuck, K Renee PA Unavailable Unavailable Stuck, K Renee PA Unavailable Unavailable Stuck, K Renee PA Unavailable Unavailable Stuck, K Renee PA Unavailable Unavailable Stuck, K Renee PA Unavailable Unavailable Stuck, K Renee PA Unavailable Unavailable Stuck, K Renee PA Unavailable Unavailable Stuck, K Renee PA Unavailable Unavailable Stuck, K Renee PA Unavailable Unavailable Stuck, K Renee PA Unavailable Unavailable Stuck, K Renee PA Unavailable Unavailable Stuck, K Renee PA Unavailable Unavailable Stuck, K Renee PA Unavailable Unavailable Stuck, K Renee PA Unavailable Unavailable Stuck, K Renee PA Unavailable Unavailable Stuck, K Renee PA Unavailable Unavailable Stuck, K Renee PA Unavailable Unavailable StChelle fonseca Renee PA Unavailable Unavailable REED, C GRAHAME MD Unavailable Unavailable REED, C GRAHAME MD Unavailable Unavailable REED, C GRAHAME MD Unavailable Unavailable REED, C GRAHAME MD Unavailable Unavailable REED, C GRAHAME MD Unavailable Unavailable REED, C GRAHAME MD Unavailable Unavailable REED, C GRAHAME MD Unavailable Unavailable REED, C GRAHAME MD Unavailable Unavailable REED, C GRAHAME MD Unavailable Unavailable REED, C GRAHAME MD Unavailable Unavailable REED, C GRAHAME MD Unavailable Unavailable REED, C GRAHAME MD Unavailable Unavailable REED, C GRAHAME MD Unavailable Unavailable REED, C GRAHAME MD Unavailable Unavailable REED, C GRAHAME MD Unavailable Unavailable REED, C GRAHAME MD Unavailable Unavailable REED, C GRAHAME MD Unavailable Unavailable REED, C GRAHAME MD Unavailable Unavailable REED, C GRAHAME MD Unavailable Unavailable REED, C GRAHAME MD Unavailable Unavailable REED, C GRAHAME MD Unavailable Unavailable REED, C GRAHAME MD Unavailable Unavailable REED, C GRAHAME MD Unavailable Unavailable REED, C GRAHAME MD Unavailable Unavailable REED, C GRAHAME MD Unavailable Unavailable REED, C GRAHAME MD Unavailable Unavailable REED, C GRAHAME MD Unavailable Unavailable REED, C GRAHAME MD Unavailable Unavailable REED, C GRAHAME MD Unavailable Unavailable REED, C GRAHAME MD Unavailable Unavailable REED, C GRAHAME MD Unavailable Unavailable REED, C GRAHAME MD Unavailable Unavailable REED, C GRAHAME MD Unavailable Unavailable REED, C GRAHAME MD Unavailable Unavailable REED, C GRAHAME MD Unavailable Unavailable REED, C GRAHAME MD Unavailable Unavailable REED, C GRAHAME MD Unavailable Unavailable REED, C GRAHAME MD Unavailable Unavailable REED, C GRAHAME MD Unavailable Unavailable REED, C GRAHAME MD Unavailable Unavailable REED, C GRAHAME MD Unavailable Unavailable REED, C GRAHAME MD Unavailable Unavailable REED, C GRAHAME MD Unavailable Unavailable REED, C GRAHAME MD Unavailable Unavailable REED, C GRAHAME MD Unavailable Unavailable REED, C GRAHAME MD Unavailable Unavailable REED, C GRAHAME MD Unavailable Unavailable REED, C GRAHAME MD Unavailable Unavailable REED, C GRAHAME MD Unavailable Unavailable REED, C GRAHAME MD Unavailable Unavailable REED, C GRAHAME MD Unavailable Unavailable REED, C GRAHAME MD Unavailable Unavailable REED, C GRAHAME MD Unavailable Unavailable REED, C GRAHAME MD Unavailable Unavailable REED, C GRAHAME MD Unavailable Unavailable REED, C GRAHAME MD Unavailable Unavailable REED, C GRAHAME MD Unavailable Unavailable REED, C GRAHAME MD Unavailable Unavailable REED, C GRAHAME MD Unavailable Unavailable REED, C GRAHAME MD Unavailable Unavailable REED, C GRAHAME MD Unavailable Unavailable REED, C GRAHAME MD Unavailable Unavailable REED, C GRAHAME MD Unavailable Unavailable REED, C GRAHAME MD Unavailable Unavailable REED, C GRAHAME MD Unavailable Unavailable REED, C GRAHAME MD Unavailable Unavailable REED, C GRAHAME MD Unavailable Unavailable REED, C GRAHAME MD Unavailable Unavailable REED, C GRAHAME MD Unavailable Unavailable REED, C GRAHAME MD Unavailable Unavailable REED, C GRAHAME MD Unavailable Unavailable REED, C GRAHAME MD Unavailable Unavailable REED, C GRAHAME MD Unavailable Unavailable REED, C GRAHAME MD Unavailable Unavailable REED, C GRAHAME MD Unavailable Unavailable REED, C GRAHAME MD Unavailable Unavailable REED, C GRAHAME MD Unavailable Unavailable REED, C GRAHAME MD Unavailable Unavailable REED, C GRAHAME MD Unavailable Unavailable REED, C GRAHAME MD Unavailable Unavailable REED, C GRAHAME MD Unavailable Unavailable REED, C GRAHAME MD Unavailable Unavailable REED, C GRAHAME MD Unavailable Unavailable REED, C GRAHAME MD Unavailable Unavailable REED, C GRAHAME MD Unavailable Unavailable REED, C GRAHAME MD Unavailable Unavailable REED, C GRAHAME MD Unavailable Unavailable REED, C GRAHAME MD Unavailable Unavailable REED, C GRAHAME MD Unavailable Unavailable REED, C GRAHAME MD Unavailable Unavailable REED, C GRAHAME MD Unavailable Unavailable REED, C GRAHAME MD Unavailable Unavailable REED, C GRAHAME MD Unavailable Unavailable REED, C GRAHAME MD Unavailable Unavailable REED, C GRAHAME MD Unavailable Unavailable REED, C GRAHAME MD Unavailable Unavailable REED, C GRAHAME MD Unavailable Unavailable REED, C GRAHAME MD Unavailable Unavailable REED, C GRAHAME MD Unavailable Unavailable REED, C GRAHAME MD Unavailable Unavailable REED, C GRAHAME MD Unavailable Unavailable REED, C GRAHAME MD Unavailable Unavailable REED, C GRAHAME MD Unavailable Unavailable REED, C GRAHAME MD Unavailable Unavailable REED, C GRAHAME MD Unavailable Unavailable REED, C GRAHAME MD Unavailable Unavailable REED, C GRAHAME MD Unavailable Unavailable REED, C GRAHAME MD Unavailable Unavailable REED, C GRAHAME MD Unavailable Unavailable REED, C GRAHAME MD Unavailable Unavailable REED, C GRAHAME MD Unavailable Unavailable REED, C GRAHAME MD Unavailable Unavailable REED, C GRAHAME MD Unavailable Unavailable REED, C GRAHAME MD Unavailable Unavailable REED, C GRAHAME MD Unavailable Unavailable REED, C GRAHAME MD Unavailable Unavailable REED, C GRAHAME MD Unavailable Unavailable REED, C GRAHAME MD Unavailable Unavailable ALEKSIEJUK, PATSY MD Unavailable Unavailable ALEKSIEJUK, PATSY MD Unavailable Unavailable ALEKSIEJUK, PATSY MD Unavailable Unavailable ALEKSIEJUK, PATSY MD Unavailable Unavailable Re-disclosure Warning The records that you are about to access may contain information from federally-assisted alcohol or drug abuse programs. If such information is present, then the following federally mandated warning applies: This information has been disclosed to you from records protected by federal confidentiality rules (42 CFR part 2). The federal rules prohibit you from making any further disclosure of this information unless further disclosure is expressly permitted by the written consent of the person to whom it pertains or as otherwise permitted by 42 CFR part 2. A general authorization for the release of medical or other information is NOT sufficient for this purpose. The Federal rules restrict any use of the information to criminally investigate or prosecute any alcohol or drug abuse patient.The records that you are about to access may contain highly sensitive health information, the redisclosure of which is protected by Article 27-F of the [facility] Public Health law. If you continue you may have access to information: Regarding HIV / AIDS; Provided by facilities licensed or operated by the [facility] Office of Mental Health; or Provided by the [facility] Office for People With Developmental Disabilities. If such information is present, then the following [facility] mandated warning applies: This information has been disclosed to you from confidential records which are protected by state law. State law prohibits you from making any further disclosure of this information without the specific written consent of the person to whom it pertains, or as otherwise permitted by law. Any unauthorized further disclosure in violation of state law may result in a fine or fci sentence or both. A general authorization for the release of medical or other information is NOT sufficient authorization for further disc losure. Allergies and Adverse Reactions Type Description Substance Reaction Status Data Source(s ) Drug Class IODINATED DIAGNOSTIC AGENTS IODINATED DIAGNOSTIC AGENTS [facility] Drug Class NO KNOWN ALLERGIES NO KNOWN ALLERGIES [facility] Environmental Allergy ENVIRONMENTAL ENVIRONMENTAL [facility] DRUG INGREDI BEE VENOM BEE VENOM [facility] Propensity to adverse reactions BEE VENOM Honey bee venom Active [facility] Family History Family Member Name Family Member Gender Family Member Status Date o f Status Description Data Source(s) Unknown Female Unknown Female Encounters Encounter Providers Location Date Indications Data Source(s ) Outpatient Attender: PATSY DAVIS MD 11/26/2020 12:0 0:00 AM [facility] Outpatient Attender: PATSY DAVIS MD 09/04/2020 12:0 0:00 AM [facility] Outpatient Referrer: Rosemarie CASTROKELY-SJPBreannaKELY 12:00:00 AM EST - 07/03/2020 11:39:[address] [facility] Outpatient Attender: PATSY DAVIS MDReferrer: PATSY DAVIS MD [id number] 06/12/2020 12:00:00 AM EST - 06/12/2020 11:45:25 AM ES T Chronic migraine without aura, not intractable, without status migrainosus [facility] Chronic migraine without aura, not intra ctable, without status migrainosus Outpatient Attender: Rosemarie CASTROKELY-SJP.KELY 02/2020 12:00:00 AM EST - 05/29/2020 12:28:[address] [facility] Outpatient Attender: PATSY DAVIS MD [id number] 05/22/2020 12:00:00 AM EST - 05/23/2020 08:59:00 AM EST Chronic migraine without aura, not intra ctable, without status migrainosus [facility] Chronic migraine without aura, not intra ctable, without status migrainosus Outpatient Attender: Renee SHARMA [id number] 05/08/2020 12:00:00 A M [facility] Outpatient Attender: Renee SHARMA 04/24/2020 12:00:00 AM [facility] Outpatient Attender: Renee SHARMA [id number] 04/17/2020 12:00 :00 AM EDT Headache, unspecified [facility] Headache, unspecified Outpatient Attender: Renee SHARMA 03/27/2020 12:00 :00 AM EDT Benign neoplasm of brain, unspecified [facility] Benign neoplasm of brain, unspecified Outpatient Attender: ROSEMARY REED MD 03/19/2020 12:00:00 AM EDT [facility] Outpatient Attender: ROSEMARY REED MD 02/27/2020 12:00:00 AM EDT [facility] Outpatient Attender: ROSEMARY REED MD 02/06/2020 12:00:00 AM EDT [facility] [address] [place] [address] 01/22/2020 12:00:00 AM EDT eCW1 ([facility]) [facility] [address] [place] [address] 01/01/2020 12:00:00 AM EDT eCW1 ([facility]) Outpatient [address] [facility] [id number] 12/13/2019 12:00:00 AM EDT eCW1 ([facility]) Unknown [address] [facility] [address] 12/13/2019 12:00:00 AM EDT eCW1 ([facility]) [facility] [address] [place] [address] 12/08/2019 12:00:00 AM EDT eCW1 ([facility]) [facility] [address] [place] [address] 11/30/2019 12:00:00 AM EDT eCW1 ([facility]) Outpatient Referrer: ROSEMARY REED MD 11/29/2019 05:57:00 AM EDT [facility] [address] [place] [address] 11/09/2019 12:00:00 AM EDT eCW1 ([facility]) [place]patient [address] [facility] [place] [address] 11/06/2019 12:00:00 AM EDT eCW1 ([facility]) Outpatient Attender: Rosemarie CASTROKELY-SJPBreannaKELY 12:00:[address] [facility] Outpatient Referrer: Rosemarie CASTROKELY-SJP.KELY 09:43:[address] [facility] Outpatient Attender: Rosemarie Alejandra PAReferrer: Charles CASTROKELY-SJP.KELY 06/12/2019 01:09:[address] [facility] Outpatient Attender: Rosemarie CASTROKELY-SJPBreannaKELY 12:00:[address] [facility] Medications Medication Brand Name Start Date Product Form Dose Route Admi nistrative Instructions Pharmacy Instructions Status Indications Reaction Description Data Source(s) 25 mg 05/29/2020 12:00:00 AM EST tablet 90 TAKE ONE TABLET BY MOUTH EVERY DAY TAKE ONE TABLET BY MOUTH EVERY DAY SOLD: 06/02/2020 [facility] 25 mg 05/29/2020 12:00:00 AM EST tablet 180 TAKE ONE TABLET BY MOUTH TWICE A DAY TAKE ONE TABLET BY MOUTH TWICE A DAY SOLD: 06/02/2020 [facility] Metoprolol Tartrate 25 MG Oral Tablet me toprolol tartrate (LOPRESSOR) 25 MG tablet metoprolol tartrate (LOPRESSOR) 25 MG tablet 05/29/2020 12:0 0:00 AM EST 25 mg Oral active Palpitations Take 1 tabl et (25 mg total) by mouth 2 (two) times a day [facility] Palpitations Spironolactone 25 MG Oral Tablet spironolactone (ALDAC TONE) 25 MG tablet spironolactone (ALDACTONE) 25 MG tablet 05/29/2020 12:00:00 AM EST 25 mg Oral active Hypertensive heart disease, unsp ecified whether heart failure present Take 1 tablet (25 mg total) by mouth daily [facility] Hypertensive heart disease, unspecified whether heart failure present 25 mg 05/04/2020 12:00:00 AM EST tablet 30 TAKE ONE TABLET BY MOUTH EVERY DAY TAKE ONE TABLET BY MOUTH EVERY DAY SOLD: 05/06/2020 [facility] 10 mg 05/04/2020 12:00:00 AM EST tablet 30 TAKE ONE TABLET BY MOUTH EVERY DAY TAKE ONE TABLET BY MOUTH EVERY DAY SOLD: 05/06/2020 [facility] Amlodipine 10 MG Oral Tablet amLODIPine (NORVASC) 10 M G tablet amLODIPine (NORVASC) 10 MG tablet 05/03/2020 12:00:00 AM EST aborted Essential hypertension TAKE 1 TABLET BY MOUTH ONCE DAILY [facility] Essential hypertension Spironolactone 25 MG Oral Tablet spironolactone (ALDAC TONE) 25 MG tablet spironolactone (ALDACTONE) 25 MG tablet 05/03/2020 12:00:00 AM EST aborted Hypertensive heart disease, unspecified whether heart failur e present TAKE ONE TABLET BY MOUTH EVERY DAY [facility] Hypertensive heart disease, unspecified whether heart failure present Metoprolol Tartrate 25 MG Oral Tablet Me toprolol Tartrate 25 MG Oral Tablet (LOPRESSOR) Metoprolol Tartrate 25 MG Oral Tablet (LOPRESSOR) 04/21 12:00:00 AM EST 25 mg Oral active Take 25 mg by mouth daily [facility] Spironolactone 25 MG Oral Tablet Spironolactone 25 MG Oral Tablet (ALDACTONE) Spironolactone 25 MG Oral Tablet (ALDACTONE) 05/03/2020 12:00:00 AM EST 25 mg Oral active Take 25 mg by mouth daily [facility] 25 mg 05/03/2020 12:00:00 AM EST tablet 60 TAKE ONE TABLET BY MOUTH TWICE A DAY TAKE ONE TABLET BY MOUTH TWICE A DAY SOLD: 05/06/2020 [facility] PARoxetine (PAXIL) 40 MG tablet [address]-5 04/11/2020 12:00:00 AM E DT 40 mg Oral active Take 40 mg by mouth [address] [facility] Metoprolol Tartrate 25 MG Oral Tablet me toprolol tartrate (LOPRESSOR) 25 MG tablet metoprolol tartrate (LOPRESSOR) 25 MG tablet 04/02/2020 12:0 0:00 AM EDT aborted TAKE ONE TABLET BY MOUTH TWICE A DAY [facility] Paroxetine Hydrochloride 40 MG Oral Tablet PAROXETINE HCL 03/12/2020 12:00:00 AM EDT tablet 30 TAKE ONE TABLET BY MOUTH ODALYS DAY TAKE ONE TABLET BY MOUTH EVERY DAY SOLD: 04/17/2020 [facility] Paroxetine Hydrochloride 40 MG Oral Tablet PAROXETINE HCL 03/12/2020 12:00:00 AM EDT tablet 30 TAKE ONE TABLET BY MOUTH ODALYS TAKE ONE TABLET BY MOUTH EVERY DAY SOLD: 03/14/2020 [facility] Sulfamethoxazole 800 MG / Trimethoprim 160 MG Oral Tab let 800-160 mg SULFAMETHOXAZOLE/TRIMETHOPRIM 02/27/2020 12:00:00 AM EDT tablet 14 TAKE 1 TABLET BY MOUTH EVERY 12 HOURS TAKE 1 TABLET BY MOUTH EVERY 12 HOURS SOLD: 02/27/2020 [facility] 25 mg 01/27/2020 12:00:00 AM EDT tablet 60 TAKE ONE TABLET BY MOUTH TWICE A DAY TAKE ONE TABLET BY MOUTH TWICE A DAY SOLD: 02/02/2020 [facility] 25 mg 01/27/2020 12:00:00 AM EDT tablet 60 TAKE ONE TABLET BY MOUTH TWICE A DAY TAKE ONE TABLET BY MOUTH TWICE A DAY SOLD: 03/03/2020 [facility] 40 mg 01/04/2020 12:00:00 AM EDT tablet 30 TAKE ONE TABLET BY MOUTH EVERY DAY TAKE ONE TABLET BY MOUTH EVERY DAY SOLD: 01/04/2020 [facility] 100 mg 12/27/2019 12:00:00 AM EDT capsule 20 TAKE ONE CAPSULE BY MOUTH TWICE A DAY FOR 10 DAYS TAKE ONE CAPSULE BY MOUTH TWICE A DAY FOR 10 DAYS SOLD : 12/27/2019 [facility] Amoxicillin 875 MG / Clavulanate 125 MG Oral Tablet Amoxicillin-Pot Clavulanate 875-125 MG Amoxicillin-Pot Clavulanate 875-125 MG 12/13/2019 12:00:00 AM ED T 1.0 {tablet} active Amoxicillin-Pot Cla vulanate 875-125 MG eCW1 ([facility]) Acetaminophen 325 MG / Oxycodone Hydroch loride 5 MG Oral Tablet [Percocet] Percocet 5-325 MG Percocet 5-325 MG 12/13/2019 12:00:00 AM EDT 1 .0 {tablet_as_needed} active Percocet 5-32 5 MG eCW1 ([facility]) 5-325 mg 12/13/2019 12:00:00 AM EDT tablet 20 TAKE ONE TABLET BY MOUTH EVERY 6 HOURS NEEDED FOR 10 DAYS MAXIMUM DAILY DOSE = 4 TAKE ONE TABLET BY MOUTH EVERY 6 HOURS NEEDED FOR 10 DAYS MAXIMUM DAILY DOSE = 4 SOLD: 12/13/2019 [facility] Acetaminophen 325 MG / Oxycodone Hydroch loride 5 MG Oral Tablet [Percocet] Percocet 5-325 MG Percocet 5-325 MG 12/13/2019 12:00:00 AM EDT 1 .0 {tablet_as_needed} active Percocet 5-32 5 MG eCW1 ([facility]) Amoxicillin 875 MG / Clavulanate 125 MG Oral Tablet Amoxicillin-Pot Clavulanate 875-125 MG Amoxicillin-Pot Clavulanate 875-125 MG 12/13/2019 12:00:00 AM ED T 1.0 {tablet} active Amoxicillin-Pot Cla vulanate 875-125 MG eCW1 ([facility]) 875-125 mg 12/13/2019 12:00:00 AM EDT tablet 14 TAKE 1 TABLET BY MOUTH EVERY 12 HOURS FOR 7 DAYS TAKE 1 TABLET BY MOUTH EVERY 12 HOURS FOR 7 DAYS SOLD: 12/13/2019 [facility] 5-325 mg 12/08/2019 12:00:00 AM EDT tablet 20 TAKE ONE TABLET BY MOUTH THREE TIMES A DAY NEEDED FOR PAIN MAXIMUM DAILY DOSE = 3 TABLETS TAKE ONE TABLET BY MOUTH THREE TIMES A DAY NEEDED FOR PAIN MAXIMUM DAILY DOSE = 3 TABLETS SOLD: 12/09/2019 [facility] 600 mg 12/08/2019 12:00:00 AM EDT tablet 30 TAKE ONE TABLET BY MOUTH THREE TIMES A DAY WITH FOOD FOR PAIN TAKE ONE TABLET BY MOUTH THREE TIMES A D AY WITH FOOD FOR PAIN SOLD: 12/09/2019 [facility] 20 mg 11/30/2019 12:00:00 AM EDT tablet 30 TAKE ONE TABLET BY MOUTH EVERY DAY TAKE ONE TABLET BY MOUTH EVERY DAY SOLD: 12/01/2019 [facility] 10 mg 11/07/2019 12:00:00 AM EDT tablet 90 TAKE 1 TABLET BY MOUTH ONCE DAILY TAKE 1 TABLET BY MOUTH ONCE DAILY SOLD: 11/08/2019 [facility] 10 mg 11/07/2019 12:00:00 AM EDT tablet 90 TAKE 1 TABLET BY MOUTH ONCE DAILY TAKE 1 TABLET BY MOUTH ONCE DAILY SOLD: 02/08/2020 [facility] 300 mg 11/07/2019 12:00:00 AM EDT capsule 20 TAKE ONE CAPSULE BY MOUTH EVERY 12 HOURS FOR 10 DAYS TAKE ONE CAPSULE BY MOUTH EVERY 12 HOURS FOR 10 DAYS S OLD: 11/08/2019 [facility] 40 mg 10/04/2019 12:00:00 AM EDT tablet 30 TAKE 1 TABLET BY MOUTH ONCE DAILY TAKE 1 TABLET BY MOUTH ONCE DAILY SOLD: 10/05/2019 [facility] 5 mg 09/21/2019 12:00:00 AM EDT tablet 90 TAKE ONE TABLET BY MOUTH EVERY DAY TAKE ONE TABLET BY MOUTH EVERY DAY SOLD: 09/21/2019 [facility] 500 mg 09/08/2019 12:00:00 AM EDT capsule 40 TAKE 2 CAPSULES BY MOUTH EVERY 12 HOURS FOR 10 DAYS TAKE 2 CAPSULES BY MOUTH EVERY 12 HOURS FOR 10 DAYS SO LD: 09/08/2019 [facility] 25 mg 09/01/2019 12:00:00 AM EDT tablet 60 TAKE ONE TABLET BY MOUTH TWICE A DAY TAKE ONE TABLET BY MOUTH TWICE A DAY SOLD: 09/04/2019 [facility] 25 mg 09/01/2019 12:00:00 AM EDT tablet 60 TAKE ONE TABLET BY MOUTH TWICE A DAY TAKE ONE TABLET BY MOUTH TWICE A DAY SOLD: 10/05/2019 [facility] 2 mg 07/10/2019 12:00:00 AM EST tablet 90 TAKE ONE TABLET BY MOUTH THREE TIMES A DAY, MAXIMUM DAILY DOSE = 3 TAKE ONE TABLET BY MOUTH THREE TIMES A D AY, MAXIMUM DAILY DOSE = 3 SOLD: 07/12/2019 [facility] 20 mg 06/20/2019 12:00:00 AM EST tablet 90 TAKE ONE TABLET BY MOUTH EVERY DAY TAKE ONE TABLET BY MOUTH EVERY DAY SOLD: 06/24/2019 [facility] 1 mg 06/15/2019 12:00:00 AM EST tablet 120 TAKE ONE TABLET BY MOUTH FOUR TIMES A DAY MAXIMUM DAILY DOSE = 4 TAKE ONE TABLET BY MOUTH FOUR TIMES A DA Y MAXIMUM DAILY DOSE = 4 SOLD: 06/15/2019 [facility] 500 mg 06/15/2019 12:00:00 AM EST capsule 54 TAKE ONE CAPSULE BY MOUTH FOUR TIMES A DAY TAKE ONE CAPSULE BY MOUTH FOUR TIMES A DAY SOLD: 06/15/2019 [facility] 25 mg 04/10/2019 12:00:00 AM EDT tablet 90 TAKE ONE TABLET BY MOUTH EVERY DAY TAKE ONE TABLET BY MOUTH EVERY DAY SOLD: 07/12/2019 [facility] 25 mg 04/10/2019 12:00:00 AM EDT tablet 90 TAKE ONE TABLET BY MOUTH EVERY DAY TAKE ONE TABLET BY MOUTH EVERY DAY SOLD: 10/13/2019 [facility] Alprazolam 1 MG Oral Tablet ALPRAZolam (XANAX) 1 MG ta blet ALPRAZolam (XANAX) 1 MG tablet 04/05/2019 12:00:00 AM EDT aborted TAKE ONE TABLET BY MOUTH THREE TIMES A DAY MAXIMUM DAILY DOSE [address] [facility] Multiple Vitamins-Minerals (MULTIVITAMIN WITH MINERALS ) tablet Multi- Vitamin/Minerals Po Tabs 11/02/2018 12:00:00 AM EDT 2 {tbl} Oral active Take 2 tablets by mouth daily [facility] Multiple Vitamins-Minerals (MULTIVITAMIN WITH MINERALS) tabl et [id number] 11/02/2018 12:00:00 AM EDT 2 {tbl} Oral active Take 2 tablets by mouth [facility] Vitamin B 12 0.5 MG Oral Tablet cyanocob alamin ([facility] VITAMIN B-12) 500 MCG tablet cyanocobalamin (CVS VITAMIN B-12) 500 MCG tablet 11/02/2018 12:0 0:00 AM EDT 500 ug Oral active Take 1 tablet (500 mcg t otal) by mouth daily [facility] Vitamin B 12 0.5 MG Oral Tablet vitamin B-12 (CYANOCOB ALAMIN) 500 MCG tablet vitamin B-12 (CYANOCOBALAMIN) 500 MCG tablet 11/02/2018 12:00:00 AM EDT 500 ug Oral active Take 500 mcg by mouth [facility] Levetiracetam 500 MG Oral Tablet levETIRAcetam (KEPPRA ) 500 MG tablet levETIRAcetam (KEPPRA) 500 MG tablet 03/14/2018 12:00:00 AM EDT 500 m g Oral aborted Take 1 tablet by mouth Two T imes Daily for 7 days [facility] Labetalol hydrochloride 300 MG Oral Tablet labetalol ( NORMODYNE) 300 MG tablet labetalol (NORMODYNE) 300 MG tablet 600 mg Oral ab orted Take 600 mg by mouth Two Times Daily [facility] Amlodipine 10 MG Oral Tablet amlodipine (NORVASC) 10 M G tablet amlodipine (NORVASC) 10 MG tablet 10 mg Oral aborted T carmela 10 mg by mouth daily [facility] paroxetine (PAXIL) 20 MG tablet [address]-3 40 mg Oral aborted Take 40 mg by mouth daily [facility] ferrous sulfate 325 MG Oral Tablet ferrous sulfate 325 (65 FE) MG tablet ferrous sulfate 325 (65 FE) MG tablet 325 mg Oral aborted Take 325 mg by mouth Twice Daily [facility] Magnesium Oxide (MAG-OX) 400 MG tablet 13527-027-82 400 mg Oral aborted Take [address] [facility] PARoxetine (PAXIL) 20 MG tablet [id number] 20 mg Oral aborted Take 20 mg by mouth every morning [facility] Alprazolam 0.25 MG Oral Tablet alprazolam (XANAX) 0.25 MG tablet alprazolam (XANAX) 0.25 MG tablet 0.25 mg Oral aborted Take 0.25 mg by mouth nightly as needed for Sleep [facility] Nortriptyline 10 MG Oral Capsule nortriptyline (PAMELO R) 10 MG capsule nortriptyline (PAMELOR) 10 MG capsule Oral aborte d Take by mouth [facility] Losartan Potassium 50 MG Oral Tablet losartan (COZAAR) 50 MG tablet losartan (COZAAR) 50 MG tablet 50 mg Oral aborted Ta ke 50 mg by mouth daily [facility] topiramate 100 MG Oral Tablet topiramate (TOPAMAX) 100 MG tablet topiramate (TOPAMAX) 100 MG tablet 100 mg Oral aborted Take 100 mg by mouth Two Times Daily Max daily dose of 2 tablets. [facility] Insurance Providers Payer name Policy type / Coverage type Policy ID Covered republican ID Covered republican's relationship to hall Policy Hall Plan Information [employer] COMM[employer]AN MCDO [id number] SP [id number] [facility] MED[facility] [id number] [place] [id number] I [id number] Self [id number] [facility](MCAID) O [id number] S [id number] [facility] MEDICAID [id number] [employer] COMMUNITY PLAN MCDHMO [id number] SP [id number] UN COMMUNITY PLAN MCDHMO [id number] SP [id number] [facility] MEDICAID [id number] Self [id number] Managed Care [facility] Community Plan P [id number] S [id number] Medicaid S [id number] S [id number] [facility] MEDICA[facility] PI PI Managed Care - Community Plan [facility] P [id number] S [id number] [employer] COMMUNITY PLAN MCDHMO [id number] SP [id number] [employer] COMMUNITY PLAN XIX [id number] [employer] COMMUNITY PLAN XIX [id number] 18 [id number] Managed Care - Community Plan [facility] P [id number] S [id number] Managed Care - Community Plan [facility] P [id number] S [id number] Medicaid S [id number] S [id number] [employer] COMMUNITY PLAN MCDHMO [id number] SP [id number] UNAVAILABLE UNAVAILA BLE MEDICAID GME [id number] [facility] HEA [id number] [employer] COMMUNITY PLAN MCDHMO [employer] COMMUNITY PLAN MCDHMO Self [place] [employer] COMMUNITY PLAN MCDHMO [employer] COMMUNITY PLAN MCDHMO [id number] SP [id number] [facility] Health Maintenance Organization (HMO) Self MEDICAID M [id number] Self [id number] Medicaid Medigap Part B Self BC/BS [place] H[place] Medicaid Medigap Part B Self [facility] [employer] Self MEDICAID S [id number] S [id number] BLUE CROSS FORD PLAN [id number] SP [id number] HMO BLUE [id number] SP [id number] [employer] BCBS P [id number] S [id number] [employer] BCBS P [id number] S [id number] HMO BLUE [id number] SP [id number] MEDICAID [id number] SP [id number] Problems, Conditions, and Diagnoses Code Display Name Description Problem Type Effective Dates Data Source(s) R07.89 Other chest pain Other chest pain [id number] 05/29/2020 12 :00:[address] [facility] E78.00 Pure hypercholesterolemia, unspecified P ure hypercholesterolemia, unspecified Diagnosis 07/03/2020 11:17:[address] [facility] G43.709 Chronic migraine without aur a, not intractable, without status migrainosus Chronic migraine without aura, not intra ctable, without status migrainosus Diagnosis 06/12/2020 10:59:22 AM EST [facility] I11.9 Hypertensive heart disease without heart failure Hypertensive heart disease without heart Diagnosis 05/29/2020 11:11:40 AM EST [facility] I35.0 Nonrheumatic aortic (valve) stenosis Nonrheumati c aortic (valve) stenosis Diagnosis 05/29/2020 11:11:40 AM EST [facility] R00.2 Palpitations Palpitations Diagnosis 05/29/2020 11:11:[address] [facility] E66.01 Morbid (severe) obesity due to excess ca lories Morbid (severe) obesity due to excess ca Diagnosis 05/29/2020 11:11:[address] [facility] R07.9 Chest pain, unspecified Chest pain, unspecified Diagno sis 05/29/2020 11:11:[address] [facility] Surgeries/Procedures Procedure Description Date Indications Data Source(s) ECG ROUTINE ECG W/LEAST 12 LDS W/I&R POCT AMB EKG Routine 05/29/2020 1:12 PM EST Chest pain, unspecified type 05/29/2020 06:12:00 PM EST [place] pain, unspecified type [facility] Chest pain, unspecified type TROPONIN QUANTITATIVE TROPONIN I Routine 05/21/2020 05/21/2020 12:00:[address] [facility] BASIC METABOLIC PANEL CALCIUM TOTAL BASIC METABOLIC PANEL Routine 05/21/2020 05/21/2020 12:00:[address] [facility] Results ID Date Data Source [id number] 06/12/2020 11:11:12 AM EST [facility] Name Value Range Interpretation Code Description Data Imani rce(s) Supporting Document(s) Progress Note [facility] FCTEBh8jEiQQDtVc20/IVNvrMUMki6MtARvgQCb4VGxoWOLgG2DjXRA2nO3xHWI6WNbRVuWmTwZqNnZn [facility] [file] ICAgICAgICAgICAgICAgICAgICAgICAgICAgICAgIC VkQDByNQKeITJoTAQpMMRhMQZxSWZiPVMyGNHvQPMiVSQdIAUlVY4FEPPfHLMtOZPlFJLsXMKlDAQrUL AgICAgICAgICAgICAgICAgICAgICAgICAgICAgICAgICAgICAgICAgICAgICAgICAgICAgICAgICAgIC GmBGSoRRJmNOUfJCTpWIWtKYUsBW5TQQOvEFKvBXIi ICAgICAgICAgICAgICAgICAgICAgICAgICAgICAgICAgICAgICAgICAgICAgICAgICAgICAgICAgICAg GZMfIROcAKFpFSJmRBXkQCLlOUKlLMBqXFDdJXDcTC4LEWZpRUNoASQkBFJwDECpBDDzKQEqPUGsQLCs ICAgICAgICAgICAgICAgICAgICAgICAgICAgICAgIC ReFOTuLTQbZIDfEZZnRYNnNVFoUBGvQQHyMGTfJTKiDPIhRGSdGASqEM4NCIBoSLHlGFHsZDYbWNPjGW AgICAgICAgICAgICAgICAgICAgICAgICAgICAgICAgICAgICAgICAgICAgICAgICAgICAgICAgICAgIC QpAOQpSLZlDSYrCOAxYTUvHFPoVARdIW4YJQSfAOEv ICAgICAgICAgICAgICAgICAgICAgICAgICAgICAgICAgICAgICAgICAgICAgICAgICAgICAgICAgICAg CTXmJWHzZKUhITZkQZNwBLNtVPXeIDVzYPCjDAFtCECwVV7BVSTjGMHzYHRhARWeKANaRHKmFNGgBIJo ICAgICAgICAgICAgICAgICAgICAgICAgICAgICAgIC AfEIZfTLJiFLJkDWJgIGQrUFLbFBObKEXcGTOmSHInWDRoWPVdBXIqNGPoCV6XZLQvBPVtABJwNEMwXI AgICAgICAgICAgICAgICAgICAgICAgICAgICAgICAgICAgICAgICAgICAgICAgICAgICAgICAgICAgIC RbWHMyXUIqORFbXHOlPGSpRWWiPLShCKFaDV1ZLRTs ICAgICAgICAgICAgICAgICAgICAgICAgICAgICAgICAgICAgICAgICAgICAgICAgICAgICAgICAgICAg JSNaSBYyXFPrZPGcXGHcSALaLSGbPVOrSXRzWDCgPMSjVNAqGF5YGVNmRKGyXZCoELJiZCDcJCRwEFQq ICAgICAgICAgICAgICAgICAgICAgICAgICAgICAgIC NfRZVpHMFoFUNrOLQwTKSiPLIqKINhQKVfHYCvIVDnTEKlDZChHVTkHNYmBBVcIZ0OPB13oQKmr6P6NG AsEA8yhkx/Kr0YKRwodyRcmKLnOR7SKuFaRT1mps6XBnYiEG3pfs9SWJzCNcYxU3W5jAKsAXGsDKFDYh LcG98dQQgfQi54NOclUZClSeJwCHw8Ts8PKcZaL3ve KPItSfP4LCWaFgFhRQahIX0Ev2QedSNhQSv+Sw3MHS2uz9YzOCdrOJScTG9uxi2ETVkSAoRnL7RaydO4 RAWjSAHgCv0XOFWyLEHssGHyBJBoSPBKWdHwC0WcsH26ZTQJWj4+LXlwswZoUncAOmWeAJNaq3EcJYh3 KT1VWWPjODp7qBOuHMUyR1Xop2XyPt61VIAlYwtuXU wqutGQAFykJDFnYLBPOUDirYQhHy5cOa5pJFFpGHLcTuIrIOTJSO6XZOMxCHDubEBkJDGvFNIQKB0WXB ebBQN7XVLffkPktZDjZMolNM5ONMPpnkBgFInsVRWONRj+Gw4TGG7vz5XxTWatDXMdQU4cif7EIXmSQh NfJ7C2uTJgU5J0LFolSd3RDBKsQCPdJEfuPZALYTic TC6LAD3oedX2FR2KiDWiQQCaGYOnfRRuXTa8Z15laHWtURjqKF4HXIL+Eleanor+Lc6OQTGvUBLdDWVdFxJv KIXAIkHzD9XdW9LFv2MxA0XyZF12wDuzzsHgXMzbIT1GZR5rWUNwEDXVPW6KrTKquQ4awgUwQNGgVFXL MyEzG22dcJOoLUAiKVB0MJNvXp6JOHZkV2ZvpeOluD srlwBnMIMeBGAXZD4YYYonuwNlcDOtlXzfCR84nOlzEZ6FXr8KSgGrNL6ruu0PjGXnYz7HDVYnCx8CPH PkVKQwXVMeIDK7RKAjBhEiXUhdLKDkZWItWVQ1YDSeFMCcAA7JMlHoTOCzYVv8KyAcOIJnNZYpiu6CPV ApQSNjANS8UEByFRIbYZFjYDitIEKmBPKmHLK4BKMd ZMOwBE5YCnGeCQBeNQSkJXfgRSZjKLXhss0MUVEtKPUkLtI1TgAnTNNaCCGwSKntFOAjEAN2CRMmHWEu LZTuYD5JCjDiLWOoHCF8BGouNIXdCHWzyd4OFPHcGLUfWBl5KYFtVCTkFTOnTUxyTOSpFJL6JCZ3VOXb SOEmND0BEdXeCTOpFGPvFLutGOHcARVlhy6GWNQcHY KwPoGnRGTkBTTpBVGtIMyaBIPkEXS3YLrfWNGoPOAcGF7NMcXcFDDzRMv3JHLxXCBbJMCyua2HRZLqUW ClAFGoFMIjFITvTNYzNRqiGHFaHJO1EnO0DAEmCEHyHU1UFrHdHCZaUJc3OGNkOPEhKJVtlg8FQJMiHK ZnSXweJTZrJKOeEIJnWHrqOGTcQVMhYnE7FGNkIXRy DS1EKtInDRQxGsK5DGSdKELmMUWxlt5FSJFbLSVvNLR9BFRyPXJsFGSuKUl0mcObeOXyRMf4OL4ZY2Sx vlBqHvBNUw3Uf231EQFsNAQzDh8CM2mpMy2kRIRzZHEKTu0UUVf4VhNwQemzCDAbVTE4X4DdSyUvWoT8 YKUiZQJ1LFPxKNQ+QThlPkQ7FURlF0L0BIGpOZRwCN KhKrE1YGB0DfwlJNNdQg9hMBHBSg5+VQdkqIBxiFyzEQAZJrXnRKUqNCcuDMCNCi5S ID Date Data Source [id number] 05/31/2020 09:50:00 AM EST [facility] Name Value Range Interpretation Code Description Data Imani rce(s) Supporting Document(s) SARS coronavirus 2 RNA [facility] This lab was ordered by [facility] and reported by [facility]. ID Date Data Source [id number] 05/22/2020 03:58:59 PM EST [facility] Name Value Range Interpretation Code Description Data Imani rce(s) Supporting Document(s) Progress Note [facility] MDPPOb1iZzBGNuFa04/MVVugICBze1IyDMnaYSa9FSvgUWIuM6ToWJX8aR3fYTU7IUuAFbFjDsRwBzKe [facility] [file] 1wPWTB/R0lsXc36+az5dZpYlSGr0GpuNxGeOoPfbEmx6c5SeBypRx2yYAvnAUVoZxvGsv2a1a/0K+incubator tender [file] AgICAgICAgICAgICAgICAgICAgICAgICAgICAgICAg ICAgICAgICAgICAgICAgICAgICAgICAgICAgICAgICAgICAgICAgICAgICAgICANCiAgICAgICAgICAg ICAgICAgICAgICAgICAgICAgICAgICAgICAgICAgICAgICAgICAgICAgICAgICAgICAgICAgICAgICAg ICAgICAgICAgICAgICAgICAgICAgICAgICAgICANCi AgICAgICAgICAgICAgICAgICAgICAgICAgICAgICAgICAgICAgICAgICAgICAgICAgICAgICAgICAgIC AgICAgICAgICAgICAgICAgICAgICAgICAgICAgICAgICAgICAgICANCiAgICAgICAgICAgICAgICAgIC AgICAgICAgICAgICAgICAgICAgICAgICAgICAgICAg ICAgICAgICAgICAgICAgICAgICAgICAgICAgICAgICAgICAgICAgICAgICAgICAgICANCiAgICAgICAg ICAgICAgICAgICAgICAgICAgICAgICAgICAgICAgICAgICAgICAgICAgICAgICAgICAgICAgICAgICAg ICAgICAgICAgICAgICAgICAgICAgICAgICAgICAgIC ANCiAgICAgICAgICAgICAgICAgICAgICAgICAgICAgICAgICAgICAgICAgICAgICAgICAgICAgICAgIC AgICAgICAgICAgICAgICAgICAgICAgICAgICAgICAgICAgICAgICAgICANCiAgICAgICAgICAgICAgIC AgICAgICAgICAgICAgICAgICAgICAgICAgICAgICAg ICAgICAgICAgICAgICAgICAgICAgICAgICAgICAgICAgICAgICAgICAgICAgICAgICAgICANCiAgICAg ICAgICAgICAgICAgICAgICAgICAgICAgICAgICAgICAgICAgICAgICAgICAgICAgICAgICAgICAgICAg ICAgICAgICAgICAgICAgICAgICAgICAgICAgICAgIC AgICANCiAgICAgICAgICAgICAgICAgICAgICAgICAgICAgICAgICAgICAgICAgICAgICAgICAgICAgIC AgICAgICAgICAgICAgICAgICAgICAgICAgICAgICAgICAgICAgICAgICAgICANCiAgICAgICAgICAgIC AgICAgICAgICAgICAgICAgICAgICAgICAgICAgICAg ICAgICAgICAgICAgICAgICAgICAgICAgICAgICAgICAgICAgICAgICAgICAgICAgICAgICAgICANCjw/ wGBaP9uiaSCjyxK3U6uwRz7BGt5IDW1kt2ObDNRrSXpeapRnAymZVhOuIBCfDdpUGmi1WCevMN6XaDHc Y3XoU8DtACtvBV4ZRLOrAFHizLYgDXLhUISyCqE3WI VoZZiuCI7DrTVoMDidFBFbRXXkMsOaHVKfCDCtWGWgCPTpNBENSVTdOSEjNvJaLJfmND9Ly0TspKJ3FR o+Uw0HPQ0hq7VjCVncZUZpHU2imt7ZDOjTZrOcF9RdtjV0EUOjJFJcXu6ANQTjMQSzwNZoDKBzHGHAQn WhA6WmcO89ENBJVb8+TBoxahGpNmaXZiOwJHCqo5Oi PMh8DE9RZOBvTXb2fHBpANLlD9Qej3EuLz85SJJyVoyeZMedprGMGAcvFFNiUUDZOICaoCMbZb2aHbYn PoUjBCP5GsQlYN2xNNjiWO7QRUZ5YEwkYLQiWWReY9ySJyYiAWAwBcUatUrlNE5YEtLnS8XqvoOcwMFa MCAwIFINCj4+MRfilcMdNarGSsEoPJRfl2UzJHp0BY 9CRDNsQMtsVU6CCMXxuZ9uXUzjAD6FJiDpNFIcAXONTpEsC46rpRAtEAu5D5PbIvVoBUUxHwgzQCHwPQ wvTmFtZXMgWyBdDQogID4+ID4+BUepDM4YDFzydhBfRATdIi5EEEBcVXRbAL6cIFRxVJBcD6M4yIiiNZ MDXiGeE0bcmdxsGU2aPPUrQ640mTcxvcZzQDZcDOEv Fu9KYYPmVZD0KIPiqHScSsyjCXTNPFemSS1GcIYkXOM0kD7lTJzzASMoZZZhO7tCHpVksUooYE66yMqj bnVsbCBdDQo+Rv8BZA8vd6GkVDr2fdZkSDecODQfWAamFBFsDLLfWKIlUCE0DGT1KBGKWfLbRKOlCUKe WJmxMSUvVDVabs1HMLPqHXPnEHY5ZNGwKTDoWYUkTZ pgBZYrGJSnDSJ8BHHlNSGrBF9FSlRvRSHwVOJiFSqmMDOjDNEumu6PHXNpFTJjEineMyGlZQYhVWMcWP gkICSmFMG4IVAzTQIwVERlPW5NRmLfVDLuQOE8RKDzGDIiGHXbeo5ACMXcQPCvDpfiHpWvOFVeYHSbTW gnENQsMZS8OfR3KFYfLMMrEG4BBkUnVHHbRVo1Smaa DPUiHNEfhr4PGWNhHYBkOvS1RUVvYFYmJCMxXJrdHJRgZFClVEy4DIYwMZVfMK0GIiLkHEGaIHG6QDXo TXRhLNZnxi6WOEXgGPNzWrz1HQGgRVTqFTLyUUpdVNFtVME4ZeY7JFFwOCUnOB9SEwBxNKKtZAU5MQZt DCTzGNEnuv0VJVHlYYYkXUJuUMJuOVBwIGRzSFwzAD GoEFC0PXh5SFUoNHCvTK6BJrMbZEBsQGSvFTOgMREtQSUlsr0TYITxOQLbIuM7PKYvGEHnWLFnASdaOV AtJLK7YXE6JPYoPRFqYE8FOhRbBXNpPnzxDVYlUZEcOFPsiy0XAWOpRJDoYQV8KrKsIGWhBERxLCgjCH PcNAM7EyDjAVRrZEDaTQ3NLpPmPJUrQwy0NUhkNQUy NBLwdt7AWNToNYEcLNf1AsVqUVByVZYiENtlZKHrGTE9XDbkKXOeBFXrZO3QOaMsXBBaUeOhXNsiPAXk RUJwcv4OKRTeIKZlNHN1VNMpAAShGYStJQlqRQVdCDRfRCB4XFGnXGEbAO4VGnJlLECjVzPsMREhHNXh JLKlbv4HAULlMZJhGiW7OcCsQEBhECDiLWo8vwPwyY KlIZr9TH8BY5ZnrcNlYiWUWf3Ih703GNWiJQVuAt2FV1hfUa7bKAMcKEDEGj7SYQn0EVGmIRFtOEGlLB RaElVxDoklWIVcVLqmQmh8QuIgDLB+UFq8AsFjA3F2AEZvQxI7HZRpNQV4XBV1C1JbSZWyDaZkGt5lYU ANCj4+QHjtpFGvbLnzGYCGBmQnKJSeESnbUDGODn0G ID Date Data Source [id number] 05/08/2020 12:08:53 PM [facility] Name Value Range Interpretation Code Description Data Imani rce(s) Supporting Document(s) Progress Note [facility] HVXECc1gNyLCZuYt24/IMEyjXWFkz4VlPElfMOy9QRenPQOoT0KfVPS6iK1oWSU1DKmPFhGiKkXeCQQ0 lbm [file] MGAMU9KILr== ID Date Data Source [id number] 04/17/2020 02:10:16 PM EDT [facility] Name Value Range Interpretation Code Description Data Imani rce(s) Supporting Document(s) Progress Note [facility] OPSWOc4iSqEOFtNl22/GMVuvFVHoa1NvNCicTOu5KZtgKXLhB0GhYSC3aT7fZSK8DWfBXdVoJdNxXRJ0 lbm [file] dGE+DQogICAgICAgICAgICAgICAgICAgICAgICAgICAgICAgICAgICAgICAgICAgICAgICAgICAgICAg ICAgICAgICAgICAgICAgICAgICAgICAgICAgICAgIC AgICAgICAgICAgICAgDQogICAgICAgICAgICAgICAgICAgICAgICAgICAgICAgICAgICAgICAgICAgIC AgICAgICAgICAgICAgICAgICAgICAgICAgICAgICAgICAgICAgICAgICAgICAgICAgICAgICAgDQogIC AgICAgICAgICAgICAgICAgICAgICAgICAgICAgICAg ICAgICAgICAgICAgICAgICAgICAgICAgICAgICAgICAgICAgICAgICAgICAgICAgICAgICAgICAgICAg ICAgICAgDQogICAgICAgICAgICAgICAgICAgICAgICAgICAgICAgICAgICAgICAgICAgICAgICAgICAg ICAgICAgICAgICAgICAgICAgICAgICAgICAgICAgIC AgICAgICAgICAgICAgICAgDQogICAgICAgICAgICAgICAgICAgICAgICAgICAgICAgICAgICAgICAgIC AgICAgICAgICAgICAgICAgICAgICAgICAgICAgICAgICAgICAgICAgICAgICAgICAgICAgICAgICAgDQ ogICAgICAgICAgICAgICAgICAgICAgICAgICAgICAg ICAgICAgICAgICAgICAgICAgICAgICAgICAgICAgICAgICAgICAgICAgICAgICAgICAgICAgICAgICAg ICAgICAgICAgDQogICAgICAgICAgICAgICAgICAgICAgICAgICAgICAgICAgICAgICAgICAgICAgICAg ICAgICAgICAgICAgICAgICAgICAgICAgICAgICAgIC AgICAgICAgICAgICAgICAgICAgDQogICAgICAgICAgICAgICAgICAgICAgICAgICAgICAgICAgICAgIC AgICAgICAgICAgICAgICAgICAgICAgICAgICAgICAgICAgICAgICAgICAgICAgICAgICAgICAgICAgIC AgDQogICAgICAgICAgICAgICAgICAgICAgICAgICAg ICAgICAgICAgICAgICAgICAgICAgICAgICAgICAgICAgICAgICAgICAgICAgICAgICAgICAgICAgICAg ICAgICAgICAgICAgDQogICAgICAgICAgICAgICAgICAgICAgICAgICAgICAgICAgICAgICAgICAgICAg ICAgICAgICAgICAgICAgICAgICAgICAgICAgICAgIC MtYXZyPCOaCGRwDLEiUDPoQMNdLUQxZQt2P8zdTKGaZUQfGP5yPAc9Yl4+KFzFHtKeNMN7aeKatN7KFX 2xv7YfRYxaEIKus7YpDEt0YW7QQBYdZVirQI0WDOdqgq3RIISqTZBkeWMVs9bhQuSeFMM8AUIzGgmrKT 5CYAEjK2hyqaPbQXMdWMFHGZbdNCWGHVyrIZUNFN3G BxYmZ2FnhX51IGHIDh7+NZukyzCvFyiZFdS5VGOsk6RgSWk3KW3KJYPoAgqaq0HlTiMsKPROMGhySV8W QPQ4NRKwUKPrZr7YRYBuM171lqRiDR0SHh6RPfQnYF0gpp2AWxJjBLNiBhbSPwh6SCcoXO6XqFPuCBeG sr7hgzNthpJMo1GyveSnfFWAtQMmzmHJRJB4wLYyFK RBVWOfnACjKE6tDT9dNBTfACHjGsRhTQVXPX5WZKSaMGJuwDVcGTRcHXEIVU8UMBosEIW0FWSympKgdG NmCRatWO4EHKLeihFqBlbzDJPHAFr+Ca4IZA9nh8OlQWnwLTFaFM5eow9DWSgDEeNtX8G8zJMxF0C6ZB sdDb8PNMMsHCGrAixeNBSMPJjnXQ5MSV5sjdP7ID2D sRIqEZZgSFIksTAtXRj9Z29rkMHnIAgvMC6BBKE+Eleanor+Zw0QLXWhBTSfYMDiRsZqJVDESpSjH0BuM5HL n5QyF4FiSK16iZqerxBjFUvoIX1DBK4eXFIiONPYEZ0NePYolC5kiiReKYBxSAZQYfExG94zcTTqIHRv VDV2RKMmOg6CDHLyS3KmrcXhsDbqiwKvLNCfKBKIUQ 3WRMdwigZfsLOqmBmkHQ70oQnxNV0EVc4VNnRpOS7deg4AuYUcAm8PVYKwHh5GVKCpQLNwGRWtVAG1TP AwYvHkVGthTVGfKCHqTKZ1JYMcSUZuRW4EVfWdSYXoIrT3VVwsNKKjZENrsb9EJABuYKZzLJveCOXxNC BuEFSaZYduUZGkEIEwDPE7SSYmRNKzHW6ZYeStLFCi HRIdUhDtDCCbANTwan4JGLCqMNGnWRT6ZBShGVSgHAAgKZbnARQdMED9BPa3KIYdJJUpTP0YPwNtUYSu MKnhHUVmWRIbLJCtwl2CYOUnGRMdYFY6PIUfXFKmWBUyUKfpFZCnDMN3ZdebMKXxUCEcPY5NLzAzCXCe BNXvEvCmLAMjJYHkny9EDYDuAKSgLDOnOQWmKVUbEF MqHAumMGUtZKLiRfWxGRKvUOMlXM7RKvXwCXPmTGL8NcYwUOIfBISdwb8MHUMyAEFtNBh7NmWfVVPsRY ZjBYjjHTCaMNBdFOHyWXGqBYTrKX8EXnKlWLDpNlQoANDeAIEmRDQthr7EAIDuDFUoDgoaZbCpKSPtCF TiYDhjWIYhCIBdSFE3EPAjCXGqJW0ENzRgKKSzZqIb ZpVsADCfPNXdfe1JNKKyEPEvIIErTIBcERZhTYSnYDbhKQPaIST3DtF4YLAuITSqYC9NMzXoUPVnCuY2 FGYvCUSgKLOzbg9GVKSkEPQzILOzYiIwLJNlMAMiZBvgLNXnDWR8IVFoNMObZMCbMS1CAuUxCQQpDeT3 OOkcXXEgEQXzyl5TLSCsLOKmOcdxGdZcKNPqLZVlDI usWGFpWXN0YsRcIJVgHOKbDK0ZEdTyIJSqPrt7XHHdWINmEUHsrw3DVQKjUJBlCYz9YMZbQZQqYWOrRI rkSWTlLQR5TAHnGIVhRQXmEP2KRuBfNVlcNAPVZzg6PKrnP6s1DXTvQi4OP1Nxo6MgCwBxKDYIVSjoXI 8pctJlFEYgKw3XL1fOBea0KbU8ReXsEbAhO3B2EhJy SXAoGEA6USTyHsL0IoDxGb9aCMXrDpj6TSKrAbZ8IZG8F1Y1LlCjFihgKSJmMguiKPKaTgSyPU0KAh0T BmB5WOW8uLLbJs8TFfaiJdFVGnRoSO6SDAb= ID Date Data Source [id number] 12/05/2019 09:45:00 AM EDT [facility] Name Value Range Interpretation Code Description Data Imani rce(s) Supporting Document(s) SARS CORONAVIRUS 2 RNA [facility] This lab was ordered by [facility] and reported by [facility]. ID Date Data Source [id number] 06/22/2019 06:46:[address] [facility] Name Value Range Interpretation Code Description Data Imani rce(s) Supporting Document(s) &PDF [facility] QNFVRn7iZpBGApBf18/SVWeoWMFda6EnBOonNJc7INkrUUCgF9YmtOawFPKNPCCTLuUWYYKOARvqYcXe oRX [file] ICAgICAgICAgICAgICAgICAgICAgICAgICAgICAgIC AgICAgICAgICAgICAgICAgICAgICAgICAgICAgICAgICAgICAgICAgICAgICAgICAgICAgICAgICAgIA 0KICAgICAgICAgICAgICAgICAgICAgICAgICAgICAgICAgICAgICAgICAgICAgICAgICAgICAgICAgIC AgICAgICAgICAgICAgICAgICAgICAgICAgICAgICAg AIPkZNIpOPWxYO1SDEFqAHTvRBAlWDRvSSRaYZHlTASoPWJsEUFzWNSdETFpBXTlBRMaBOVoXBAlNXBv BRDeEQTiMLKkNIYwIWJzMHKiABQvAEMiHLFnRYXfLUMaJNPvZMMrYSOtESNkLXYiIFEyIG7LYYYxUCXx ICAgICAgICAgICAgICAgICAgICAgICAgICAgICAgIC AgICAgICAgICAgICAgICAgICAgICAgICAgICAgICAgICAgICAgICAgICAgICAgICAgICAgICAgICAgIC HiFB9WCQGvRCQmLNTiFFEeCUBoEPZaGTOzDMFcAWLiVRIcFGCxFHKoKVDvNGHeXRTkWQUxAENdKTZtMD AgICAgICAgICAgICAgICAgICAgICAgICAgICAgICAg FRJdDUYjEGEjXZVrNA2UJILuMCZbXUVeVPJjXEYpFMChPGWcVSYwYOVuJRKcZGBuJMYtDOWmSHRgLILm AZMmTTLqZQNdVWYlNUNvZTCnTRAoPMVvAZMeHUNdYEDnEUMsVHJyFQOeTFVnYPUxIPWfVRMyEP2ACDAd ICAgICAgICAgICAgICAgICAgICAgICAgICAgICAgIC AgICAgICAgICAgICAgICAgICAgICAgICAgICAgICAgICAgICAgICAgICAgICAgICAgICAgICAgICAgIC TbKOZtEZ7KDCShVHYnRKOiBHJnYSCxTGDsVKAvNNQwQPXuXWTjIBKgQPSwTXZaNMZqBPFuBAXdNDSsEX AgICAgICAgICAgICAgICAgICAgICAgICAgICAgICAg DGRoMIWsKRFoNQFpFVSlDN8AINOyYRBaMVAfVXTeETHgQLDbQJDhLEXuDFIvDFRfMYNuUNSuCFWsUOOx YNUgKXGfTRLiFSPsUWYiATHfBZBoPBHwDXMoBXEgAHWcWHNtFJBeORVnAZTgEZJtNDIlPOPfMZRoGM8J ICAgICAgICAgICAgICAgICAgICAgICAgICAgICAgIC AgICAgICAgICAgICAgICAgICAgICAgICAgICAgICAgICAgICAgICAgICAgICAgICAgICAgICAgICAgIC VrTNSiGPIcJM6FLJ79hDPbl5M9RQEdWC3uzza/Xs5NJEodxdCboJOcNW5JUxXrLX2erv3BQhKrAL3vbt 7ZZHqADaXzM9M9zJVkICDpYLINKrQeO86dRQltAh29 PPxuVASpYaCyKHx3Zq7WRcAeO9oxUCQpMrQ0RFDmAgYgAShaJJ5Ss3AkzHNhXRz+Ar5HHT0ma1EdUDti LDMoCI9cev9OPLnCSiGtY7H1eCOyB3U2XPqwOm8FBAIbGYWwGQayINWWAOymPM3NNZ9bzhO6TG1NpRCl JBLwOQWpoLSdROw8P24liTPiAWbxEW9KXFY+Eleanor+Pg 9EXWXeOQHfXEQuTlWtQBJDSiNxN37vaZZuALNvJVG0OFCuVm7FBZFeI9UwtuLteSfztcLoIFEfARHOTV 6LUSdgtnRtnUXbuTnnUP56aTttBU5HOo1QRwCaZU8tdc4JxAPfEz5ULLMyXM5YTLOpRJRuQHQaKPY5PM PcGdGeNUrsZKWnFTIlRBG8KRYyCVRwLD6RCuLsCLCr HSS2FQvkLVVqHVVqzx1BCKRtMPNyUoCqRQSfNUIhLWYeCPcvPFDsDHZhKCznBOVrNFKlYD2DXlWyPDUc HUN8QnXcRQIjGHSvfj3SBBJtIRPiVfGmLVGzYDRtCTJvAWgcEXIvWMFjFMc0DQPeNTNwSS3DFjIlITYa QCYbYCOjRHNfQIDdhj8HUCFtCYFcPVZ7IEMqNHCpJJ BpPUbeGWJtFVJ5GrGgJEXiXVRxKT9EQcMhFZVtDTI2ZmXkAEZsDGVwzd2GZQDsSXOvZSatPFTuYPUdOR AfMJagKLNeKTP6CxA9DMDdUDTkBN2YZmMtHPTxYRM0OtXnGTMqSWUwgz5LCUYvIZMeVfW4FTXpGYVmUH PsYUerDGWvXBQzEqO4OPIgEIHqFV1VMuRcSQIvZJP9 RxGxTOXuYCLxqo4PWPDiKEOwBkV1ESYxLJVnFAZjDVzyLUTuCMO7SbZsCCPpBMKoBH2DPoVfAEmlNZPM Qqw3HKrrF3e2LZAsUF1KB4Brc0OyUYdiUUSIHUmgUU9pwiDwHLVqUb1NK4tVBkbhZOQvIdP8TSZvEsl3 J3McVpS3BDQlCENpBRJ7CGV3DL0iOLHsRtQaImH2DI C6MHJ3SVLnPUPmKzPyY6QeVzc5COV7IqAxTJ8IJa0REpJ4FBW0oANtGo1WDGc9HqUKLpOxIB1QMIc= Procedure Social History Code Duration Value Status Description Data Source(s ) Alcohol intake 05/29/2020 12:00:00 AM EST Not Currently completed [facility] Smoking 05/29/2020 12:00:00 AM EST Never smoker completed Never s moker [facility] Alcohol intake 05/22/2020 12:00:00 AM EST Current drinker of al cohol (finding) completed Current drinker of alcohol (finding) [facility] Tobacco use and exposure 05/22/2020 12:00:00 AM EST Never used co mpleted Never used [facility] Smoking 05/22/2020 12:00:00 AM EST Never smoker completed Never s [facility] Alcohol intake 05/08/2020 12:00:00 AM EST Current drinker of al cohol (finding) completed Current drinker of alcohol (finding) [facility] Alcohol intake 04/17/2020 12:00:00 AM EDT Current drinker of al cohol (finding) completed Current drinker of alcohol (finding) [facility] Smoking 12/27/2019 12:00:00 AM EDT Never Smoker completed Never S moker eCW1 ([facility]) Smoking 12/27/2019 12:00:00 AM EDT Never Smoker completed Never S moker eCW1 ([facility]) Smoking 11/06/2019 12:00:00 AM EDT Never Smoker completed Never S moker eCW1 ([facility]) Vital Signs ID Date Data Source UNK Name Value Range Interpretation Code Description Data Source(s) Oxygen saturation in Arterial blood by Pulse oximetry 96 % 96 % [facility] Body mass index (BMI) [Ratio] 40.39 kg/m2 40.39 kg/m2 [facility] Body weight 103.[address] [facility] Body height [address] [facility] Heart rate 57 /min 57 /min [facility] Diastolic blood pressure 80 mm[Hg] 80 mm[Hg] [facility] Systolic blood pressure 124 mm[Hg] 124 mm[Hg] [facility] Diastolic blood pressure 84 mm[Hg] 84 mm[Hg] eCW1 ([facility]) Systolic blood pressure 136 mm[Hg] 136 mm[Hg] e CW1 ([facility]) Body temperature 98.8 [degF] 98.8 [degF] eCW1 ( [facility]) Body mass index (BMI) [Ratio] 40.28 kg/m2 40.28 kg/m2 eCW1 ([facility]) Body height 63 [in_i] 63 [in_i] eCW1 ([facility]) Body weight 227.4 [lb_av] 227.4 [lb_av] eCW1 ([facility]) Diastolic blood pressure 78 mm[Hg] 78 mm[Hg] eCW1 ([facility]) Systolic blood pressure 130 mm[Hg] 130 mm[Hg] e CW1 ([facility]) Body mass index (BMI) [Ratio] 39.5 kg/m2 39.5 k g/m2 eCW1 ([facility]) Body height 63 [in_i] 63 [in_i] eCW1 ([facility]) Body weight 223.0 [lb_av] 223.0 [lb_av] eCW1 ([facility]) ID Date Data Source [id number] 05/23/2020 08:59:19 AM [facility] Name Value Range Interpretation Code Description Data Source(s) WEIGHT RECORDED 220 lb 220 lb [facility] Body height Measured 63 in 63 in [facility] ID Date Data Source [id number] 05/08/2020 12:08:53 PM [facility] Name Value Range Interpretation Code Description Data Source(s) WEIGHT RECORDED 210 lb 210 lb [facility] Body height Measured 63 in 63 in [facility] Patient Treatment Plan of Care Planned Activity Planned Date Details Description Data Source (s) Spironolactone 25 MG Oral Tablet 05/29/2020 12:00:00 AM [facility] Metoprolol Tartrate 25 MG Oral Tablet 05/29/2020 12:00:00 AM [facility] Spironolactone 25 MG Oral Tablet 05/03/2020 12:00:00 AM [facility] Metoprolol Tartrate 25 MG Oral Tablet 05/03/2020 12:00:00 AM [facility] Spironolactone 25 MG Oral Tablet 05/03/2020 12:00:[address] [facility] Amlodipine 10 MG Oral Tablet 05/03/2020 12:00:[address] [facility] PARoxetine (PAXIL) 40 MG tablet 04/11/2020 12:00:[address] [facility] Metoprolol Tartrate 25 MG Oral Tablet 04/02/2020 12:00:[address] [facility] Acetaminophen 325 MG / Oxycodone Hydrochloride 5 MG Or al Tablet [Percocet] 12/13/2019 12:00:00 AM EDT [facility] ([facility]) Amoxicillin 875 MG / Clavulanate 125 MG Oral Tablet 12/13/19 12:00:00 AM EDT [facility] ([facility]) Acetaminophen 325 MG / Oxycodone Hydrochloride 5 MG Or al Tablet [Percocet] 12/13/2019 12:00:00 AM EDT [facility] ([facility]) Amoxicillin 875 MG / Clavulanate 125 MG Oral Tablet 12/13/19 12:00:00 AM EDT [facility]C ([facility]) Alprazolam 1 MG Oral Tablet 04/05/2019 12:00:[address] [facility] Multiple Vitamins-Minerals (MULTIVITAMIN WITH MINERALS ) tablet 11/02/2018 12:00:00 AM T [facility] Vitamin B 12 0.5 MG Oral Tablet 11/02/2018 12:00:00 AM [facility] Multiple Vitamins-Minerals (MULTIVITAMIN WITH MINERALS ) tablet 11/02/2018 12:00:00 AM EDT [facility] Vitamin B 12 0.5 MG Oral Tablet 11/02/2018 12:00:[address] [facility] Levetiracetam 500 MG Oral Tablet 03/14/2018 12:00:00 AM T [facility] Magnesium Oxide (MAG-OX) [address] [facility] PARoxetine (PAXIL) [address] [facility] Alprazolam 0.25 MG Oral Tablet [facility] Nortriptyline 10 MG Oral Capsule [facility] Losartan Potassium 50 MG Oral Tablet [facility] ferrous sulfate 325 MG Oral Tablet [facility] paroxetine (PAXIL) 20 MG tablet [facility] Amlodipine 10 MG Oral Tablet [facility] Labetalol hydrochloride 300 MG Oral Tablet [facility] topiramate 100 MG Oral Tablet [facility]
[2020-07-06] MEDS ORDERED: PARO40TA2 PO (18:42)
[2020-07-06 18:56] LABS: BASO # 0.1 10^3/uL (0.0-0.2); BASO % 0.6 % (0.0-1.0); EOS % 0.2 % (0.0-3.0); HEMATOCRIT 36.8 % (36.0-47.0); HEMOGLOBIN 11.7 g/dl (12.0-15.5); LYMPH # 2.1 10^3/uL (1.5-5.0); LYMPH % 21.8 % (24.0-44.0); MEAN CORPUSCULAR HEMOGLOBIN 26.1 pg (27.0-33.0); MEAN CORPUSCULAR HGB CONC 31.8 g/dl (32.0-36.5); MONO # 0.6 10^3/uL (0.0-0.8); MONO % 6.4 % (0.0-5.0); NEUTROPHILS # 6.8 10^3/uL (1.5-8.5); NEUTROPHILS % 70.7 % (36.0-66.0); PLATELET COUNT, AUTOMATED 435 10^3/uL (150-450); RED BLOOD COUNT 4.49 10^6/uL (4.00-5.40); WHITE BLOOD COUNT 9.6 10^3/uL (4.0-10.0)
[2020-07-06] MEDS ORDERED: ASPIRIN 81 MG CHEW TABLET PO ONE (19:00)
--- OUTSIDE RECORDS SUMMARY | 2020-07-06 19:07 | CCD ---
Author Author [facility] Organization [facility] Address Unknown Phone Unavailable Care Team Providers Care Electronics Technician Name Role Phone Mustapha Alejandra PA Unavailable [...] L Rosemarie PA Unavailable Unavailable Alejandra, L Rosemaire PA Unavailable Unavailable Alejandra, L Rosemarie PA Unavailable Unavailable Alejandra, L Rosemarie PA Unavailable Unavailable Alejandra, L Orsemarie PA Unavailable Unavailable Alejandra, L Rosemarie PA [...] Unavailable REED, C GRAHAME MD Unavailable Unavailable ERED, C GRAHAME MD Unavailable Unavailable REED, C [...] is protected by Article 27-F of the [facility] Public Health law. If you continue you may have access to information: Regarding HIV / AIDS; Provided by facilities licensed or operated by the [facility] Office of Mental Health; or Provided by the [facility] Office for People With Developmental Disabilities. If such information is present, then the following [facility] mandated warning applies: This information has [...] law may result in a fine or fdc sentence or both. A general authorization for the release of medical or other information is NOT sufficient authorization for further disc losure. Allergies and Adverse Reactions Type Description Substance Reaction Status Data Source(s ) Drug Class IODINATED DIAGNOSTIC AGENTS IODINATED DIAGNOSTIC AGENTS [facility] Drug Class NO KNOWN ALLERGIES NO KNOWN ALLERGIES [facility] Environmental Allergy ENVIRONMENTAL ENVIRONMENTAL [facility] DRUG INGREDI BEE VENOM BEE VENOM [facility] Propensity to adverse reactions BEE VENOM Honey bee venom Active [facility] Family History Family Member Name Family Member Gender Family Member Status Date o f Status Description Data Source(s) Unknown Female Unknown Female Encounters Encounter Providers Location Date Indications Data Source(s ) Outpatient Attender: PATSY DAVIS MD 11/26/2020 12:0 0:00 AM [facility] Outpatient Attender: PATSY DAVIS MD 09/04/2020 12:0 0:00 AM [facility] Outpatient Referrer: Rosemarie CASTROKELY-SJPBreannaKELY 12:00:00 AM EST - 07/03/2020 11:39:27 AM EST [facility] Outpatient Attender: PATSY DAVIS MDReferrer: PATSY DAVIS MD [id number] 06/12/2020 12:00:00 AM EST - 06/12/2020 11:45:25 AM ES T Chronic migraine without aura, not intractable, without status migrainosus [facility] Chronic migraine without aura, not intra ctable, without status migrainosus Outpatient Attender: Rosemarie CASTROKELY-SJP.KELY 02/2020 12:00:00 AM EST - 05/29/2020 12:28:19 PM EST [facility] Outpatient Attender: PATSY DAVIS MD [id number] 05/22/2020 12:00:00 AM EST - 05/23/2020 08:59:00 AM EST Chronic migraine without aura, not intra ctable, without status migrainosus [facility] Chronic migraine without aura, not intra ctable, without status migrainosus Outpatient Attender: Renee SHARMA [id number] 05/08/2020 12:00:00 A M [facility] Outpatient Attender: Renee SHARMA 04/24/2020 12:00:00 AM [facility] Outpatient Attender: Renee SHARMA [id number] 04/17/2020 12:00 :00 AM EDT Headache, unspecified [facility] Headache, unspecified Outpatient Attender: Renee SHARMA 03/27/2020 12:00 :00 AM EDT Benign neoplasm of brain, unspecified [facility] Benign neoplasm of brain, unspecified Outpatient Attender: ROSEMARY REED MD 03/19/2020 12:00:00 AM EDT [facility] Outpatient Attender: ROSEMARY REED MD 02/27/2020 12:00:00 AM EDT [facility] Outpatient Attender: ROSEMARY REED MD 02/06/2020 12:00:00 AM EDT [facility] [address] [place] [address] 01/22/2020 12:00:00 AM EDT eCW1 (Formerly [facility]) [facility] [address] [place] [address] 01/01/2020 12:00:00 AM EDT eCW1 (Formerly [facility]) Outpatient [address] [facility] [address] 12/13/2019 12:00:00 AM EDT eCW1 (Counts include 234 beds at the [facility]) Unknown [address] [facility] [address] 12/13/2019 12:00:00 AM EDT eCW1 (Counts include 234 beds at the [facility]) [facility] [address] [place] [address] 12/08/2019 12:00:00 AM EDT eCW1 (Formerly [facility]) [facility] [address] [place] [address] 11/30/2019 12:00:00 AM EDT eCW1 (Formerly [facility]) Outpatient Referrer: ROSEMARY REED MD 11/29/2019 05:57:00 AM EDT [facility] [address] [place] [address] 11/09/2019 12:00:00 AM EDT eCW1 (Formerly [facility]) Outpatient [address] [facility] [place] [address] 11/06/2019 12:00:00 AM EDT eCW1 (Counts include 234 beds at the [facility]) Outpatient Attender: Rosemarie CASTROKELY-SJPBreannaKELY 12:00:00 AM EDT [facility] Outpatient Referrer: Rosemarie CASTROKELY-SJP.KELY 09:43:38 AM EST [facility] Outpatient Attender: Rosemarie Alejandra PAReferrer: Charles CASTROKELY-SJP.KELY 06/12/2019 01:09:16 PM EST [facility] Outpatient Attender: Rosemarie CASTROKELY-SJPBreannaKELY 12:00:00 AM EST [facility] Medications Medication Brand Name Start Date Product Form Dose Route Admi nistrative Instructions Pharmacy Instructions Status Indications Reaction Description Data Source(s) 25 mg 05/29/2020 12:00:00 AM EST tablet 90 TAKE ONE TABLET BY MOUTH EVERY DAY TAKE ONE TABLET BY MOUTH EVERY DAY SOLD: 06/02/2020 [facility] 25 mg 05/29/2020 12:00:00 AM EST [...] by mouth 2 (two) times a day [facility] Palpitations Spironolactone 25 MG Oral Tablet spironolactone (ALDAC TONE) 25 MG tablet spironolactone (ALDACTONE) 25 MG tablet 05/29/2020 12:00:00 AM EST 25 mg Oral active Hypertensive heart disease, unsp ecified whether heart failure present Take 1 tablet (25 mg total) by mouth daily [facility] Hypertensive heart disease, unspecified whether heart failure present 25 mg 05/04/2020 12:00:00 AM EST tablet 30 TAKE ONE TABLET BY MOUTH EVERY DAY TAKE ONE TABLET BY MOUTH EVERY DAY SOLD: 05/06/2020 [facility] 10 mg 05/04/2020 12:00:00 AM EST tablet 30 TAKE ONE TABLET BY MOUTH EVERY DAY TAKE ONE TABLET BY MOUTH EVERY DAY SOLD: 05/06/2020 [facility] Amlodipine 10 MG Oral Tablet amLODIPine (NORVASC) 10 M G tablet amLODIPine (NORVASC) 10 MG tablet 05/03/2020 12:00:00 AM EST aborted Essential hypertension TAKE 1 TABLET BY MOUTH ONCE DAILY [facility] Essential hypertension Spironolactone 25 MG Oral Tablet spironolactone (ALDAC TONE) 25 MG tablet spironolactone (ALDACTONE) 25 MG tablet 05/03/2020 12:00:00 AM EST aborted Hypertensive heart disease, unspecified whether heart failur e present TAKE ONE TABLET BY MOUTH EVERY DAY [facility] Hypertensive heart disease, unspecified whether heart failure present Metoprolol Tartrate 25 MG Oral Tablet Me toprolol Tartrate 25 MG Oral Tablet (LOPRESSOR) Metoprolol Tartrate 25 MG Oral Tablet (LOPRESSOR) 04/21 12:00:00 AM EST 25 mg Oral active Take 25 mg by mouth daily [facility] Spironolactone 25 MG Oral Tablet Spironolactone 25 MG Oral Tablet (ALDACTONE) Spironolactone 25 MG Oral Tablet (ALDACTONE) 05/03/2020 12:00:00 AM EST 25 mg Oral active Take 25 mg by mouth daily [facility] 25 mg 05/03/2020 12:00:00 AM EST tablet 60 TAKE ONE TABLET BY MOUTH TWICE A DAY TAKE ONE TABLET BY MOUTH TWICE A DAY SOLD: 05/06/2020 [facility] PARoxetine (PAXIL) 40 MG tablet [address]-8 04/11/2020 12:00:00 AM E DT 40 mg Oral active Take 40 mg by mouth daily [facility] Metoprolol Tartrate 25 MG Oral Tablet me toprolol tartrate (LOPRESSOR) 25 MG tablet metoprolol tartrate (LOPRESSOR) 25 MG tablet 04/02/2020 12:0 0:00 AM EDT aborted TAKE ONE TABLET BY MOUTH TWICE A DAY [facility] Paroxetine Hydrochloride 40 MG Oral Tablet PAROXETINE [...] active Amoxicillin-Pot Cla vulanate 875-125 MG eCW1 ([facility]) Acetaminophen 325 MG / Oxycodone Hydroch loride 5 MG Oral Tablet [Percocet] Percocet 5-325 MG Percocet 5-325 MG 12/13/2019 12:00:00 AM EDT 1 .0 {tablet_as_needed} active Percocet 5-32 5 MG eCW1 ([facility]) 5-325 mg 12/13/2019 12:00:00 AM EDT tablet [...] {tablet_as_needed} active Percocet 5-32 5 MG eCW1 ([facility]) Amoxicillin 875 MG / Clavulanate 125 MG Oral Tablet Amoxicillin-Pot Clavulanate 875-125 MG Amoxicillin-Pot Clavulanate 875-125 MG 12/13/2019 12:00:00 AM ED T 1.0 {tablet} active Amoxicillin-Pot Cla vulanate 875-125 MG eCW1 ([facility]) 875-125 mg 12/13/2019 12:00:00 AM EDT tablet [...] A DAY MAXIMUM DAILY DOSE 3 TABLETS [facility] Multiple Vitamins-Minerals (MULTIVITAMIN WITH MINERALS ) tablet Multi- Vitamin/Minerals Po Tabs 11/02/2018 12:00:00 AM EDT 2 {tbl} Oral active Take 2 tablets by mouth daily [facility] Multiple Vitamins-Minerals (MULTIVITAMIN WITH MINERALS) tabl [place] 40767-774-41 11/02/2018 12:00:00 AM EDT 2 {tbl} Oral active Take 2 tablets by mouth [facility] Vitamin B 12 0.5 MG Oral Tablet cyanocob alamin ([facility] VITAMIN B-12) 500 MCG tablet cyanocobalamin (CVS VITAMIN B-12) 500 MCG tablet 11/02/2018 12:0 0:00 AM EDT 500 ug Oral active Take 1 tablet (500 mcg t otal) by mouth daily [facility] Vitamin B 12 0.5 MG Oral Tablet vitamin B-12 (CYANOCOB ALAMIN) 500 MCG tablet vitamin B-12 (CYANOCOBALAMIN) 500 MCG tablet 11/02/2018 12:00:00 AM EDT 500 ug Oral active Take 500 mcg by mouth [facility] Levetiracetam 500 MG Oral Tablet levETIRAcetam (KEPPRA ) 500 MG tablet levETIRAcetam (KEPPRA) 500 MG tablet 03/14/2018 12:00:00 AM EDT 500 m g Oral aborted Take 1 tablet by mouth Two T imes Daily for 7 days [facility] Labetalol hydrochloride 300 MG Oral Tablet labetalol ( NORMODYNE) 300 MG tablet labetalol (NORMODYNE) 300 MG tablet 600 mg Oral ab orted Take 600 mg by mouth Two Times Daily [facility] Amlodipine 10 MG Oral Tablet amlodipine (NORVASC) 10 M G tablet amlodipine (NORVASC) 10 MG tablet 10 mg Oral aborted T carmela 10 mg by mouth daily [facility] paroxetine (PAXIL) 20 MG tablet [address]-6 40 mg Oral aborted Take 40 mg by mouth daily [facility] ferrous sulfate 325 MG Oral Tablet ferrous sulfate 325 (65 FE) MG tablet ferrous sulfate 325 (65 FE) MG tablet 325 mg Oral aborted Take 325 mg by mouth Twice Daily [facility] Magnesium Oxide (MAG-OX) 400 MG tablet 03601-119-64 400 mg Oral aborted Take 400 mg by mouth daily [facility] PARoxetine (PAXIL) 20 MG tablet [id number] 20 mg Oral aborted Take 20 mg by mouth every morning [facility] Alprazolam 0.25 MG Oral Tablet alprazolam (XANAX) 0.25 MG tablet alprazolam (XANAX) 0.25 MG tablet 0.25 mg Oral aborted Take 0.25 mg by mouth nightly as needed for Sleep [facility] Nortriptyline 10 MG Oral Capsule nortriptyline (PAMELO R) 10 MG capsule nortriptyline (PAMELOR) 10 MG capsule Oral aborte d Take by mouth [facility] Losartan Potassium 50 MG Oral Tablet losartan (COZAAR) 50 MG tablet losartan (COZAAR) 50 MG tablet 50 mg Oral aborted Ta ke 50 mg by mouth daily [facility] topiramate 100 MG Oral Tablet topiramate (TOPAMAX) 100 MG tablet topiramate (TOPAMAX) 100 MG tablet 100 mg Oral aborted Take 100 mg by mouth Two Times Daily Max daily dose of 2 tablets. [facility] Insurance Providers Payer name Policy type / Coverage type Policy ID Covered democrat ID Covered democrat's relationship to hall Policy Hall Plan Information [employer] COMMUNITY PLAN [id number] [id number] SP [id number] [facility] MEDICAID [id number] [place] [id number] [facility] I [id number] Self [id number] [facility](MCAID) O [id number] S [id number] [facility] MEDICAID [id number] [employer] COMMUNITY PLAN MCDHMO [id number] SP [id number] UN COMMUNITY PLAN MCDHMO [id number] SP [id number] [facility] MEDICAID [id number] Self [id number] Managed Care [facility] Community Plan P [id number] S [id number] Medicaid S [id number] S [id number] [facility] MEDICAID PI PI Managed Care - Community Plan [facility] P [id number] S [id number] UNHC COMMUNITY PLAN MCDHMO [id number] SP [id number] UNHC COMMUNITY PLAN XIX [id number] UNHC COMMUNITY PLAN XIX [id number] Managed Care - Community Plan [facility] P [id number] S [id number] Managed Care - Community Plan [facility] P [id number] S [id number] Medicaid S [id number] S [id number] UNHC COMMUNITY PLAN MCDHMO [id number] SP [id number] UNAVAILABLE [place]A BLE MEDICAID GME [id number] [facility] HEA [id number] UNHC COMMUNITY PLAN MCDHMO UN[employer] COMMUNITY PLAN MCDHMO Self [place] UN[employer] COMMUNITY PLAN MCDHMO UNHC COMMUNITY PLAN MCDHMO [id number] SP [id number] [facility] Health Maintenance Organization (HMO) Self MEDICAID M [id number] Self [id number] Medicaid Medigap Part B Self BC/BS [place] H[place] Medicaid Medigap Part B Self [facility] Comm Plan Jus Commercial Self MEDICAID S [id number] BLUE CROSS FORD PLAN [id number] SP [id number] HMO BLUE [id number] SP [id number] EXCELLUS BCBS P [id number] S [id number] EXCELLUS BCBS P [id number] S [id number] HMO BLUE [id number] SP [id number] MEDICAID [id number] SP [id number] Problems, Conditions, and Diagnoses Code Display Name Description Problem Type Effective Dates Data Source(s) R07.89 Other chest pain Other chest pain [id number] 05/29/2020 12 :00:00 AM EST [facility] E78.00 Pure hypercholesterolemia, unspecified P ure hypercholesterolemia, unspecified Diagnosis 07/03/2020 11:17:41 AM EST [facility] G43.709 Chronic migraine without aur a, not intractable, without status migrainosus Chronic migraine without aura, not intra ctable, without status migrainosus Diagnosis 06/12/2020 10:59:22 AM EST [facility] I11.9 Hypertensive heart disease without heart failure Hypertensive heart disease without heart Diagnosis 05/29/2020 11:11:40 AM EST [facility] I35.0 Nonrheumatic aortic (valve) stenosis Nonrheumati c aortic (valve) stenosis Diagnosis 05/29/2020 11:11:40 AM EST [facility] R00.2 Palpitations Palpitations Diagnosis 05/29/2020 11:11:40 A M EST [facility] E66.01 Morbid (severe) obesity due to excess ca lories Morbid (severe) obesity due to excess ca Diagnosis 05/29/2020 11:11:40 AM EST [facility] R07.9 Chest pain, unspecified Chest pain, unspecified Diagno sis 05/29/2020 11:11:40 AM EST [facility] Surgeries/Procedures Procedure Description Date Indications Data Source(s) ECG ROUTINE ECG W/LEAST 12 LDS W/I&R POCT AMB EKG Routine 05/29/2020 1:12 PM EST Chest pain, unspecified type 05/29/2020 06:12:00 PM EST [place] [facility] pain, unspecified type [facility] Chest pain, unspecified type TROPONIN QUANTITATIVE TROPONIN I Routine 05/21/2020 05/21/2020 12:00:00 AM EST [facility] BASIC METABOLIC PANEL CALCIUM TOTAL BASIC METABOLIC PANEL Routine 05/21/2020 05/21/2020 12:00:00 AM EST [facility] Results ID Date Data Source [id number] 06/12/2020 11:11:12 AM EST [facility] Name Value Range Interpretation Code Description Data Imani rce(s) Supporting Document(s) Progress Note [facility] HNVVSs8dKeAVJbBo94/QYJllXIGux2VjSMnaOUs1ZBceVVWjK2RoPNC4iK7iQVT8TZlTOoWyVjErQbJi [facility] [file] ICAgICAgICAgICAgICAgICAgICAgICAgICAgICAgIC NrTOKbAPMgPPLxKMQeMEQiCFAoBPLaJCHwIZMyJEGdFDWvLNIbND4ATUSjSJNeEOYmGGZmFLEjXTAqOH AgICAgICAgICAgICAgICAgICAgICAgICAgICAgICAgICAgICAgICAgICAgICAgICAgICAgICAgICAgIC QmRCMzHLStSORrIBUxLHCsQSYvBF2LCDXmSGPiZCQz ICAgICAgICAgICAgICAgICAgICAgICAgICAgICAgICAgICAgICAgICAgICAgICAgICAgICAgICAgICAg JCRiRFViXAUqKKIwJYIvVKTeXOGdNOAoZRGmICKzMY5ZCIBcYFByRWYdOWRdJYVpFJJfZQBdUPYmLZIo ICAgICAgICAgICAgICAgICAgICAgICAgICAgICAgIC XeGLVbQCPrETOmFSZrMWXwPBMyYORaPVTbCMBjAUKwXBTlOAShNAKlJA9UNNOiHOEvDARjTGZfVUPaOG AgICAgICAgICAgICAgICAgICAgICAgICAgICAgICAgICAgICAgICAgICAgICAgICAgICAgICAgICAgIC XdUFWdEYLgSLTcRGCtBXKlVSWxTPEzXH3PBRCyAGAy ICAgICAgICAgICAgICAgICAgICAgICAgICAgICAgICAgICAgICAgICAgICAgICAgICAgICAgICAgICAg VADjIXIbGWZuAGOqJEMvWKCxWISfTATtTAMrKTHkRMBfKD0MFFTxXOVhVXMxVAIuJZUdUPMhAFOyVZEf ICAgICAgICAgICAgICAgICAgICAgICAgICAgICAgIC GbSMBtMWCgUIOqDSJoNLHdIYOmUVGsRTMkXMXvAVRxEZOgDEDtDPGoLKTvCI1JUPXeHXTmTXXwFCOqYT AgICAgICAgICAgICAgICAgICAgICAgICAgICAgICAgICAgICAgICAgICAgICAgICAgICAgICAgICAgIC NwVIThZMZqAGGgZEXlROCiGSEtBVFnGVDoYH9TSVQl ICAgICAgICAgICAgICAgICAgICAgICAgICAgICAgICAgICAgICAgICAgICAgICAgICAgICAgICAgICAg NRQyIGZnHJWbJYRzXRVyFNZePXUyGMDjRJXwINTeRIRbQRHkXE3MDHAtGUDtIWZyVOIbWACzISQlTKHp ICAgICAgICAgICAgICAgICAgICAgICAgICAgICAgIC PnVHVePDTcOTReWOIzXZSsIOFyJNUeWFCkAHUnKYZhTAHrXXBrYGIsMTNuXXUdWO1KWW23jNKlc6Y3UZ BtQF9xtqi/Hm0GQKghphWhySWxDD1UXhGfPU5mly3VWxKgCT0ltq4VWHvURzSeA5D9cTBrPWHoJGVJZf XfT06qCOaqZk55HDwcTEPuJfTlHUh6Nn7LSwKzM9uv HYEbIhD6QAFnRkLwIRvyFS8Xr9IcrKUcQGg+Hf9PLX9kx4ObLIowSFFjUN4rpf3AZKvGKwCdH9MghlB8 DLJuXJOjXa8GIERrFLQuvRPfGQWvISIXMlGpI2VyoJ73IGQTNx0+AYuickZjEsiXVhDhECYab9TkTPc8 RR4IIOTwSCn7uRRzHICjC4Cve7JcRq78KWXvGhanGP vsxjHHBEjqLNWtJHERUUGasLPgPs1yMw3tYBEyWLYrLyIkQEFEMB4AMPWzEMQyhIBfFCHcSHSNOG3ALL jfBCO3SZAbgpTpnXWjNQmfFR7ACFJvilPdNTilHASWXOr+Bw7TFY6ad5DiDXwcCEWbGX3xqh2WOGaLDf McG5M1pRXwO7Q1WPijRu4ENGZhFOMsNBfwSDSCNWek WR3HPS1szwT0KY7VmDQuVSQsVQWofECaFTm8E21bbCWyKMknGR4BSAM+Eleanor+Rk1WSQCpCPXyLLQtJgXr GAZFSyMwK8YmP9XJu7GoP8QqOA16jZcjgyGjTWbnXM1ZMQ7kYTVnEYINUW0TmBIkuD8yotXnUWWiCNRJ AvAmR81jmXWoJTEqEIL2AGDcGi0PSHDiK4YgfvExjQ tyrrCyGOGvAQNDJD3UTQkhjkShgXJhuQeyFB66oOwsFG8ELh9NGtXtUW8xdg6AhMMvRz5FODDxMb4DEM TvYKTrGNUpGWS7GJPuMkSaVJwzGONlYHYaUVG8GNPdOYOmYR0VNlUiCUYlXIm6FfHnCKZyNNUmri7GWO OrOOZuVSC4FPFoKAFtKFWhJVagZOIiQCHfMWP2RERf GARgST9TJgQhJSOgITPaDLtiVNPzYRTpsm8CDPSgDLEzAyV4ErFpMQMjAQWxCHmfZYLwYGL0GRWmPVRs UCFaPM4ODrDaFJGaOUB3LOcaRDNvFPMdfv2HQDJuTFEdTZw9XYXlFCEuDNHlGQmuERWtOQB8TOI4FUJz FRPhIZ3JZfBaLZZfOQYyHPrkHSEwEMQxhs8CCOGxSO VrWjPlGOYdPWPuWECkAXxoTCKkSTU7NBmiAOWoXIXoJT2EEtEnWLDwTTx8ABScQDOaNPCpux6BFDBeMG NkZXWdNTOtYEOeEIIyICmnPITgDEN3VjN2GCRrUWQyOV5VVvLnKBAyIVp5SJMePTWsJPYpxz3NZBIhLD IjCJucYWQuJAPsMXDoSSomPTPuCUBdIzA0SCAcNGJx LF0AByCmSAXuEgL9TLUzVSXlSLJete4PMNVfUIDkOWQ1NZBhQUDlGUUrYDd6rmDcuVJaLXi2SV8XJ6Im qgHbSqFWMt5Cj325PEUnXQRpUg5LE5uxHm1kKDWxREYSTp4VSVz3QhYtGipsZGRpPFE3Q8CvOxCnOrV6 AGEdXRN5PNHyDYK+VMatMbT6QMBkB9W4DRWtOXLgUY UgIuB6XXL8CzdzCOBxHu6tCJQBGt0+LOeqpCKxdThyDMCEBqVfDTZuPJyiVMRISy5J ID Date Data Source [id number] 05/31/2020 09:50:00 AM EST [facility] Name Value Range Interpretation Code Description Data Imani rce(s) Supporting Document(s) SARS coronavirus 2 RNA [facility] This lab was ordered by [facility] and reported by [facility]. ID Date Data Source [id number] 05/22/2020 03:58:59 PM EST [facility] Name Value Range Interpretation Code Description Data Imani rce(s) Supporting Document(s) Progress Note [facility] ZSJFYr6xNaTHSmCz25/PVAmsYJYkj8FsLGeuQPq9DNymYIOeF0TxVFL5uQ0eWUG2AQrVQgCySyDcKnKb [facility] [file] 1wPWTB/B5uzPe16+ba7wUpMbHOa9SmiCkKkGjDogEki5r0RqIlxKb0oPEjaUBHlRrvKno9c5j/0K+assistant professor sculpture [file] AgICAgICAgICAgICAgICAgICAgICAgICAgICAgICAg ICAgICAgICAgICAgICAgICAgICAgICAgICAgICAgICAgICAgICAgICAgICAgICANCiAgICAgICAgICAg ICAgICAgICAgICAgICAgICAgICAgICAgICAgICAgICAgICAgICAgICAgICAgICAgICAgICAgICAgICAg ICAgICAgICAgICAgICAgICAgICAgICAgICAgICANCi AgICAgICAgICAgICAgICAgICAgICAgICAgICAgICAgICAgICAgICAgICAgICAgICAgICAgICAgICAgIC AgICAgICAgICAgICAgICAgICAgICAgICAgICAgICAgICAgICAgICANCiAgICAgICAgICAgICAgICAgIC AgICAgICAgICAgICAgICAgICAgICAgICAgICAgICAg ICAgICAgICAgICAgICAgICAgICAgICAgICAgICAgICAgICAgICAgICAgICAgICAgICANCiAgICAgICAg ICAgICAgICAgICAgICAgICAgICAgICAgICAgICAgICAgICAgICAgICAgICAgICAgICAgICAgICAgICAg ICAgICAgICAgICAgICAgICAgICAgICAgICAgICAgIC ANCiAgICAgICAgICAgICAgICAgICAgICAgICAgICAgICAgICAgICAgICAgICAgICAgICAgICAgICAgIC AgICAgICAgICAgICAgICAgICAgICAgICAgICAgICAgICAgICAgICAgICANCiAgICAgICAgICAgICAgIC AgICAgICAgICAgICAgICAgICAgICAgICAgICAgICAg ICAgICAgICAgICAgICAgICAgICAgICAgICAgICAgICAgICAgICAgICAgICAgICAgICAgICANCiAgICAg ICAgICAgICAgICAgICAgICAgICAgICAgICAgICAgICAgICAgICAgICAgICAgICAgICAgICAgICAgICAg ICAgICAgICAgICAgICAgICAgICAgICAgICAgICAgIC AgICANCiAgICAgICAgICAgICAgICAgICAgICAgICAgICAgICAgICAgICAgICAgICAgICAgICAgICAgIC AgICAgICAgICAgICAgICAgICAgICAgICAgICAgICAgICAgICAgICAgICAgICANCiAgICAgICAgICAgIC AgICAgICAgICAgICAgICAgICAgICAgICAgICAgICAg ICAgICAgICAgICAgICAgICAgICAgICAgICAgICAgICAgICAgICAgICAgICAgICAgICAgICAgICANCjw/ iGMbT0jmaJVwedO5B9tyJe1PSl6JLN0rk4DhEUJlOVitlvKvKmqHJzNiDNEyXjmHIfy8SIikAO7IqKWd H6QnE5WpBTswGT8KPUUvETWudSFzKHIePZMuDrS5SR XiKLqqJQ1UiMYqDElqDGQkSRZnFpWqRWGfCDAvDADhBTDsNQHCMHHyYCMqNoNuACnkDH4Me5FjfLO3QD o+Av8QPJ2sp0StMSecUBBkFS0jfs1SBPxORgWhS6WkaaM6GKRfRSHnHx2AQTZgZUZgdNJwFBVdRJMTGv FrR7VvsK21GZCXHh7+ONwtbdBlVoeXQzZiITTym7Dl QRv2ZK6OFXEjFFr3kTQeFOSrT8Fnt7MoDn97YOGnSpwxRNptgpXIVRjsEGNsHBYQDVXzjSEeQi5iHkOu EoTcZBD0CrXzXN5yDXagAY1ZXPJ2TIfqQMDzEPNpS7qHAwSlRQJrThBtiAyyDF1JAoTdP9GnvhMpaAYi MCAwIFINCj4+SJqtekMeKwaLAnTdUQLxd9CsUNz3XI 6FQYEoGWwmQJ4JGBZkcC9qOWowMD5PSpUiKZZnLHVYUsHqL09vfEFpLHp2R6AdOgNtPDTiCttkIZQfWT wvTmFtZXMgWyBdDQogID4+ID4+RLkdHL3WLYlvilWhYGRaEs2BLAIiHANoFU3bJODvKXJuD0N2kTbvCZ HOWlSbE2xbwfagPF7jWKYjE833aUtyujVmCHWrUVRn Lb7TCKGkNCH6OCUxeCTpKzxaYXAJBLnbRQ1ZcGLoRFM1jE0xXFfeFKLoZIJhQ2pFInCorEnlRV54fGji bnVsbCBdDQo+Cb3JJT7kh9UkGUg0idSdURstUPBfZNwiDMEhKVOlJMUwDBK0YBN2YSNQTiZmPLIpAYOz HAmbNSAfRTGpvb5LDKEfKENuEMS6ZMPcTEGnDGSwEI lyEQJkTHVyRKH6YMZuNJRdHV9PGyLhCPHaHHQnAQkoVOEfQYHodr7LVNGfOSLqNifiZpVaZGXwMURvVE hcATQqTCS5WUPkISBrMSIcRR6MTgUeGJVmDLU7MKSrVSOzOOMewd0UHHIrQSWbPxtpDeZnJNGsIFLpVG arAIVfLHS3ZfI9ZAJcRUEoNG8EXtYkOJFqHDo0Wznb ISQcKYVgue8APHIdQJVmJkB0AKIhVIMoYHJrZNbjVQExHMVuZHd6INEyQZYdBG7UBoZhLYVkIRG2KAVp BZLbVOLczz1UNWJpPDOfMvb9DIStHZFiEAYiZUqjFICcUXK2EwZ9KUYdPOGfZX0MRrApUOCmGCS2DJYw YCPxTIAhyi6FMDBsLFGvBAPbLIIdVJOlBQTdJTetHP EqEYI3SQx7YTAuZCSlUM7ZBrIoTBZeUNSwCLXyDPBhYEPyhg0NQOMaBTPbBbC1ZRCkMBLrSITyVIajOJ AgUBF0LUX5DCBiTZZtVG0BJkCpODLsIpjzANMkTERbZYDsxs8DRVWuLJGaLDO4CaInJXGnDYAlFLiwMH ZyTHU0MwLxYWVfBKKbBG7YDwCqMRQnRdx5BNtrMVNx ENJfjw2EQCCzBKAhMVk5OkSjKCYyKNFfTWefQJHvGDN1IOjwZTJrBKKgEQ6ETqHtCXVqCcAsTKsnTHCn RTLxiz5CLHEaLTAwHJR8NPCiOBHqSEEcKGdoVLQaGVNwWXL6LNBhORGdBF6NGjJbULHmWmBsPGUzLXVf MIHfpg1QTTRbFQBuXsD2QdPmJSGrKGZeNJh9lsRxwZ RbWKn9JI1DU2NiofTtGrWDCn6Pe439PVRnVIUzBx9WD8qxUj7kJBKwIYGFUl1GUQw6TEOzKUFuMKHhZZ WqXgMiRwrwNLBbFJzcPwt6PiPzXPL+QZb3LzGwW6K7NCErWbZ6MHJnFNE8TJI9A4YyARGwHuEkFb9tAD ANCj4+PPbsyQQtuXnfTJZHWxLhNWBmRZzgMMKAAk0J ID Date Data Source [id number] 05/08/2020 12:08:53 PM [facility] Name Value Range Interpretation Code Description Data Imani rce(s) Supporting Document(s) Progress Note [facility] HFZPLn1dPnAJIpZx57/KDYcbJAJkm3HpQXmxYKa5LKcnLTCxL0PmRVG7bN7aMZC5THvLUyZjFjKfGAM9 lbm [file] VDPLF8SGTh== ID Date Data Source [id number] 04/17/2020 02:10:16 PM [facility] Name Value Range Interpretation Code Description Data Imani rce(s) Supporting Document(s) Progress Note [facility] MVNNOe3nUgZGOkJi57/UAWpoZKHll1TtIRsvACw8TVoiZYJaH8RpKOE7pO8sGUF7KDbOAxSeDqKxUNY8 lbm [file] dGE+DQogICAgICAgICAgICAgICAgICAgICAgICAgICAgICAgICAgICAgICAgICAgICAgICAgICAgICAg ICAgICAgICAgICAgICAgICAgICAgICAgICAgICAgIC AgICAgICAgICAgICAgDQogICAgICAgICAgICAgICAgICAgICAgICAgICAgICAgICAgICAgICAgICAgIC AgICAgICAgICAgICAgICAgICAgICAgICAgICAgICAgICAgICAgICAgICAgICAgICAgICAgICAgDQogIC AgICAgICAgICAgICAgICAgICAgICAgICAgICAgICAg ICAgICAgICAgICAgICAgICAgICAgICAgICAgICAgICAgICAgICAgICAgICAgICAgICAgICAgICAgICAg ICAgICAgDQogICAgICAgICAgICAgICAgICAgICAgICAgICAgICAgICAgICAgICAgICAgICAgICAgICAg ICAgICAgICAgICAgICAgICAgICAgICAgICAgICAgIC AgICAgICAgICAgICAgICAgDQogICAgICAgICAgICAgICAgICAgICAgICAgICAgICAgICAgICAgICAgIC AgICAgICAgICAgICAgICAgICAgICAgICAgICAgICAgICAgICAgICAgICAgICAgICAgICAgICAgICAgDQ ogICAgICAgICAgICAgICAgICAgICAgICAgICAgICAg ICAgICAgICAgICAgICAgICAgICAgICAgICAgICAgICAgICAgICAgICAgICAgICAgICAgICAgICAgICAg ICAgICAgICAgDQogICAgICAgICAgICAgICAgICAgICAgICAgICAgICAgICAgICAgICAgICAgICAgICAg ICAgICAgICAgICAgICAgICAgICAgICAgICAgICAgIC AgICAgICAgICAgICAgICAgICAgDQogICAgICAgICAgICAgICAgICAgICAgICAgICAgICAgICAgICAgIC AgICAgICAgICAgICAgICAgICAgICAgICAgICAgICAgICAgICAgICAgICAgICAgICAgICAgICAgICAgIC AgDQogICAgICAgICAgICAgICAgICAgICAgICAgICAg ICAgICAgICAgICAgICAgICAgICAgICAgICAgICAgICAgICAgICAgICAgICAgICAgICAgICAgICAgICAg ICAgICAgICAgICAgDQogICAgICAgICAgICAgICAgICAgICAgICAgICAgICAgICAgICAgICAgICAgICAg ICAgICAgICAgICAgICAgICAgICAgICAgICAgICAgIC QkWUUpBPRpZKCzDKAlHUIsCXIoQXRnZAn1A3dfMDQeXAXoUH8rKZf2Df5+ZWhHLjPlFXS8elZigX9UJV 2dl3DvIKkdXOUxq7DfWQb5MO8FDXCkRXptWJ4IIPqxhn3QQGQaGQXshBBFy0gzBtSfDFA5GZGiKipeKT 0WXMFnY3xbbsGqIMQlZISLFQqvQZMAYCuoJBHAGE4K AnJqJ7UsuL73YDWQHd6+ZBfrzeGjIowPMlU2JTVcf7AuQMg0DN5NRDIsFpebd4BxWzJfMWJOYWbrHN9N SJW4FLGwJNTkQx7ZRYZiA246bqUvBW6QAw4MMxKvMV2qnb4FIuPvADIgPmdDQsf6BSwnJF5HxMPeGBhO vo9sdxEjqfIGm1ZpqkSdoCJDdKVuolHEHWY2zSWyWX MZFSSpaBQfYY3fPC6hTDLxALMjHiZeAMVOOJ5WHNQeSCMufXVsYUZpNHAFAG5ZJCrgVEM3DIEwoaIvgC FxQHwrRB9NRSYuxpHsPijgVMSXDHb+Pu3QFL0kv5JdHUxaEWRgUL0lxx4JJThUYcAzA9B2zESfO6B0FX rvCq1LFONnKHQeJozrQUVEGBtmTA1OZW2ivrN6CZ3Y uQSkUTIoVOGakIWfHFj2R91ntCYdOIpsPJ3TVOU+Eleanor+Tb4XBAXpXZWwHFDjTcYdIUISXuUdN5GvK1TI t4BiJ1GtKD59oYkylbYvPKyoLQ0MLH5sTBSrQPPYNJ3QhFUxvA6usfGdXIYjLGQPIzNqZ23pwRLyBYQb KCL0UHWlAo8PUPJpN0ReacLzsSqfcqZeJTUvKDSBZG 8CZUfollGvoIPvrVzxXW38nWfwEU9BOo7NNaGgOC3dze9ZvLIqFd6FDKMpUv9NOTMkOPFkNWJlWVE7WK DmOrAcDVfmSNWuXIIiWKF6FSGaTJWhTW7NZmSqUMLuObH1YLiyLPUbUAJjrd8KYMSdLTHlXItwCSTjVW QrZJJlXCucFNGjLUTuTUX2ARZoSSHzLO7TGhInJMGb EMFsJeKzNEEwKBYwqg3PDQQnBXKkITT2LIEmIBYbZMPbXGvlRAMkWMC3FVh7XPHqHUVcSH5FVoRiGSOy AIniPBRdZLHmIXRjhj0QTFMuNNKnHNX6NRSlZJCfABHmAIgdFRPvNXA9NyelDNXrLHJfBR9FTfJlSGJd SGXuOfXaWGXsIUUacu0DFLXmNSNmQPKqDOTeJDTiMQ YdTMohWMNxDJFuAzSeEPXoEEMdPI0YAuIqFTBiYTF6JlYsICBwDIXgvt5SNUQgUSJlCYm5RhBnMVTaJT XiLBqnPEIbSVUfWIEzWEIxBYRfTR1HHhSrPQJiCzPyFPBnOTJxPIGkgi6RARNfGOXuDkriZcAsCNMbKF GkDBocOKBdATNeJJM6FTSgHYTzIN3VVbWwXPAlOrXj OfIuLPKnIQGkxk8DVJDqELAfSUGpIHBmAGYlTNEcQTrvKKNuXCZ7HaZ0SIOsLOWyDP6YMbAnIZOjEgJ7 PYUtNOJvNKMmut0KRBOfMCFqHPTmOrMlZQYtQQBsHLvoZGTnHKT7VGOuMSQgEZPvWG9SPlNqJGZbDrO0 JNfoNEXdBAQjzf5OOWSkRDPqNdrkByYzKXTlCFIgMC dtAXBsVOA7WsChDFJeQBBsSX0SQpAoBPDqStg3QAXiIPLwRUVnzn7MPPQgHBOvEUb4ABUyJUSmIOWrRU kvQZMlUBQ8LAEzFEUoPBYxOX1EOqUaZMeaHAZYTmh5LZcsQ1y8YGXgZz6MO6Qjm8DiBtRuPSMFEIqlSM 5nrnPoIYSoJz2LW6qEPln3RpO4BxCaRjShB0Q8WtOz QYMiSCG2ZTKoJeM6HyNxKv4eFYTuWtq2YHUtUpS6MFZ7X3A0MvVcObykIUIjRiupKPCpTmOdZR5TGv8U YwE9RQC0iJMaNs9DRqwuHkQZRtIsFX0UXOk= ID Date Data Source [id number] 12/05/2019 09:45:00 AM EDT [facility] Name Value Range Interpretation Code Description Data Imani rce(s) Supporting Document(s) SARS CORONAVIRUS 2 RNA [facility] This lab was ordered by [facility] and reported by [facility]. ID Date Data Source [id number] 06/22/2019 06:46:55 PM EST [facility] Name Value Range Interpretation Code Description Data Imani rce(s) Supporting Document(s) &PDF [facility] SBFABw8mHiOKYkHz43/XGIxhHAHgi0YgZRxeWYx8AFlpNGJyA4XsnIxlTVYEPBRFRhMANQCJHMxkEsJq oRX [file] ICAgICAgICAgICAgICAgICAgICAgICAgICAgICAgIC AgICAgICAgICAgICAgICAgICAgICAgICAgICAgICAgICAgICAgICAgICAgICAgICAgICAgICAgICAgIA 0KICAgICAgICAgICAgICAgICAgICAgICAgICAgICAgICAgICAgICAgICAgICAgICAgICAgICAgICAgIC AgICAgICAgICAgICAgICAgICAgICAgICAgICAgICAg EALxUPYxTYTrDP7DRCXpLHTzWMKxCBNoPOJoTDNuVDQzCFBgWNYaATYkRNZiJOJnRFHwYNGhAEYuWNZv UOBaSIUaAVQjCIOcDFAbDVXtVNNxHFKzPLVoZGSlWUHxWHDxGQQpSSKaZADjWDZrWNGgRD1APUYjRCMr ICAgICAgICAgICAgICAgICAgICAgICAgICAgICAgIC AgICAgICAgICAgICAgICAgICAgICAgICAgICAgICAgICAgICAgICAgICAgICAgICAgICAgICAgICAgIC MbGK4ODJTmVYFdJJFwQBPzDLFqVUDcTUArHYFoVSKuBPAwLJIiGSKmUDFzMPGyTGDlKKXzBJQlMMImZA AgICAgICAgICAgICAgICAgICAgICAgICAgICAgICAg KRYeGHPwQTRuTZAfVQ8EZJJgZHHwZOKhZLTiXYHcLGLeJAAjJMKaTBGpYXSyZLIhVERgWIZrIITvLZXs YWCwFQZyOMYmUZUgSQLsEKObECWpSZOsHCKoKBSxWIYuEJTaGBNoHRVyELPpAORuGABuUPSjRY8NKPSk ICAgICAgICAgICAgICAgICAgICAgICAgICAgICAgIC AgICAgICAgICAgICAgICAgICAgICAgICAgICAgICAgICAgICAgICAgICAgICAgICAgICAgICAgICAgIC XzTUVzNK4ERXAvNPPkDTQbUJSiPTIzCYIfVFKrBANhPBDgKDNzJWRyRHKpIQIeXROyWKPnNSRrZBFgVA AgICAgICAgICAgICAgICAgICAgICAgICAgICAgICAg QSQuPTLtHHUnIUPaBOPeOU2CWECrTXQgLVApGEEcKIAkDATzYYIrZOMjTVYePVYuGQRwXTFoFXZgONHh UMNuDUMfYOYsLUWpNLIlDURdSMKnIVYhEJVtKJGrHCTlTNKgDGTuKTLnZWRnSVDcRLHnDIGqIRPeZQ6F ICAgICAgICAgICAgICAgICAgICAgICAgICAgICAgIC AgICAgICAgICAgICAgICAgICAgICAgICAgICAgICAgICAgICAgICAgICAgICAgICAgICAgICAgICAgIC AkYLSuWLImAV0IXY23mEAax0W7HSHbKB1raoy/Pz6VQOnuzoNauMVuAK8PLsSlSU3gsp8XFrHnUS9xvl 9PTHmZPhCzB8D2fRKqWUVtUBZKTxWeF28yIYqzXl77 BUxaOWDwBaBkNVu3Ml7OSqZkA1flJXNvJaF7CMNiWwHbVCzqDN8Jw1EneJOyCTc+Ny1LCJ9qn9ZmXJyj AJYsCA8fyo9FYDgMQdFwI0A2wHDcZ0E7CYnuKi4XMMMlYKFvWXipYZKAXUidZH2FPR4vtrD5DY1OyUXh SQStPZZtwCQuLBs1Q99whJGaVCtqXW2RNEP+Eleanor+Pg 9ONJGwAQFlVZOdItZlGOHBErKhB39foZAuOEZnMYP1PKPoXx2BUXBvI9XztlQaoRranvHbNCAzUIVPSB 0QHZgndeQucNWcpBfuPO99cFmeLI8MIp0AJiNyEN6avl4EnQFhGi3XEQErOK4KIKBnKNAyNTAtKME2ZW FnXsTmYWrnPFTxXYHhPKH5ICVpSTMgWH0JPeApNGFw BFI0GZuzVACyJFEpep2NASIlLASrZhQqFBNoMVMuTNKlSZfkDNKaEDZgSZllNEOnXBCvYT0TBnDqBMJb HMR3ZsZnAILuOPKtbp0DSLGeNHGiNgYrERLcTXHfWULlLSkjJICqZEWkFRr7VUZxLOYoZX3BKqMtVBHf ECFxDVBqKBCxZQJydt5QIIXpPKGvXGE4LNZdACQtGM UsCJtrBQWbMDY8LrBrQJFePHEiUF4BPwVnAUQuIML0JkZhQWZvEJKtqr9FTCWjHDHmNIieZHAwFRUeUM JjWRwoFVLySGM5MlA0CAHeQWOeJP6XBkDtGIHvAGM2AkOzUMPyORNaph8ILMZoKJVkMqP0VUHgWHEvDX XyCXoxZKXsPEVvBzO6JYDoJCIfCX2TJxCfSZQdZQY4 VaIoBKBiEQDxir4YZFPrOXHxUfM0KKEkRZVyDNPfCLqtEQSmVLS8UpZhTKLsZGMxXI3QNuXoSJtbUYRE Pdk5PMzrY5a2UMVqLG1TP6Tzm6FcNMmlQBAIDOfyVN0ilfCcWOZcHm3LE5qZOkuhCAHpFcT8JRXwPxp7 G1HaTbY5XPUjZEKjPDA4XSO8RR0kBKQuDpXiIyU5TU N3SSH6NVZrKTJsDdYgG3BkNve1BNQ7OhRnFT7HMe2SYjV5QBU4bVXoSt0CIQs3HbHVCfDhHN3YKIo= Procedure Social History Code Duration Value Status Description Data Source(s ) Alcohol intake 05/29/2020 12:00:00 AM EST Not Currently completed [facility] Smoking 05/29/2020 12:00:00 AM EST Never smoker completed Never s moker [facility] Alcohol intake 05/22/2020 12:00:00 AM EST Current drinker of al cohol (finding) completed Current drinker of alcohol (finding) [facility] Tobacco use and exposure 05/22/2020 12:00:00 AM EST Never used co mpleted Never used [facility] Smoking 05/22/2020 12:00:00 AM EST Never smoker completed Never s [facility] Alcohol intake 05/08/2020 12:00:00 AM EST Current drinker of al cohol (finding) completed Current drinker of alcohol (finding) [facility] Alcohol intake 04/17/2020 12:00:00 AM EDT Current drinker of al cohol (finding) completed Current drinker of alcohol (finding) [facility] Smoking 12/27/2019 12:00:00 AM EDT Never Smoker completed Never S moker eCW1 ([facility]) Smoking 12/27/2019 12:00:00 AM EDT Never Smoker completed Never S moker eCW1 ([facility]) Smoking 11/06/2019 12:00:00 AM EDT Never Smoker completed Never S moker eCW1 ([facility]) Vital Signs ID Date Data Source UNK Name Value Range Interpretation Code Description Data Source(s) Oxygen saturation in Arterial blood by Pulse oximetry 96 % 96 % [facility] Body mass index (BMI) [Ratio] 40.39 kg/m2 40.39 kg/m2 [facility] Body weight 103.42 kg 103.42 kg [facility] Body height 160 cm 160 cm [facility] Heart rate 57 /min 57 /min [facility] Diastolic blood pressure 80 mm[Hg] 80 mm[Hg] [facility] Systolic blood pressure 124 mm[Hg] 124 mm[Hg] [facility] Diastolic blood pressure 84 mm[Hg] 84 mm[Hg] eCW1 ([facility]) Systolic blood pressure 136 mm[Hg] 136 mm[Hg] e CW1 ([facility]) Body temperature 98.8 [degF] 98.8 [degF] eCW1 ( [facility]) Body mass index (BMI) [Ratio] 40.28 kg/m2 40.28 kg/m2 eCW1 ([facility]) Body height 63 [in_i] 63 [in_i] eCW1 ([facility]) Body weight 227.4 [lb_av] 227.4 [lb_av] eCW1 ([facility]) Diastolic blood pressure 78 mm[Hg] 78 mm[Hg] eCW1 ([facility]) Systolic blood pressure 130 mm[Hg] 130 mm[Hg] e CW1 ([facility]) Body mass index (BMI) [Ratio] 39.5 kg/m2 39.5 k g/m2 eCW1 ([facility]) Body height 63 [in_i] 63 [in_i] eCW1 ([facility]) Body weight 223.0 [lb_av] 223.0 [lb_av] eCW1 ([facility]) ID Date Data Source [id number] 05/23/2020 08:59:19 AM [facility] Name Value Range Interpretation Code Description Data Source(s) WEIGHT RECORDED 220 lb 220 lb [facility] Body height Measured 63 in 63 in [facility] ID Date Data Source [id number] 05/08/2020 12:08:53 PM [facility] Name Value Range Interpretation Code Description Data Source(s) WEIGHT RECORDED 210 lb 210 lb [facility] Body height Measured 63 in 63 in [facility] Patient Treatment Plan of Care Planned Activity Planned Date Details Description Data Source (s) Spironolactone 25 MG Oral Tablet 05/29/2020 12:00:00 AM [facility] Metoprolol Tartrate 25 MG Oral Tablet 05/29/2020 12:00:00 AM [facility] Spironolactone 25 MG Oral Tablet 05/03/2020 12:00:00 AM [facility] Metoprolol Tartrate 25 MG Oral Tablet 05/03/2020 12:00:00 AM [facility] Spironolactone 25 MG Oral Tablet 05/03/2020 12:00:00 AM EST [facility] Amlodipine 10 MG Oral Tablet 05/03/2020 12:00:00 AM EST [facility] PARoxetine (PAXIL) 40 MG tablet 04/11/2020 12:00:00 AM EDT [facility] Metoprolol Tartrate 25 MG Oral Tablet 04/02/2020 12:00:00 AM EDT [facility] Acetaminophen 325 MG / Oxycodone Hydrochloride 5 MG Or al Tablet [Percocet] 12/13/2019 12:00:00 AM EDT [facility] ([facility]) Amoxicillin 875 MG / Clavulanate 125 MG Oral Tablet 12/13/19 12:00:00 AM EDT [facility] (Counts include 234 beds at the [facility]) Acetaminophen 325 MG / Oxycodone Hydrochloride 5 MG Or al Tablet [Percocet] 12/13/2019 12:00:00 AM EDT eC1 ([facility]) Amoxicillin 875 MG / Clavulanate 125 MG Oral Tablet 12/13/19 12:00:00 AM EDT eC (Counts include 234 beds at the [facility]) Alprazolam 1 MG Oral Tablet 04/05/2019 12:00:00 AM EDT [facility] Multiple Vitamins-Minerals (MULTIVITAMIN WITH MINERALS ) tablet 11/02/2018 12:00:00 AM [facility] Vitamin B 12 0.5 MG Oral Tablet 11/02/2018 12:00:00 AM [facility] Multiple Vitamins-Minerals (MULTIVITAMIN WITH MINERALS ) tablet 11/02/2018 12:00:00 AM EDT [facility] Vitamin B 12 0.5 MG Oral Tablet 11/02/2018 12:00:00 AM EDT [facility] Levetiracetam 500 MG Oral Tablet 03/14/2018 12:00:00 AM T [facility] Magnesium Oxide (MAG-OX) 400 MG tablet [facility] PARoxetine (PAXIL) 20 MG tablet [facility] Alprazolam 0.25 MG Oral Tablet [facility] Nortriptyline 10 MG Oral Capsule [facility] Losartan Potassium 50 MG Oral Tablet [facility] ferrous sulfate 325 MG Oral Tablet [facility] paroxetine (PAXIL) 20 MG tablet [facility] Amlodipine 10 MG Oral Tablet [facility] Labetalol hydrochloride 300 MG Oral Tablet [facility] topiramate 100 MG Oral Tablet [facility]
[2020-07-06 19:13] LABS: INR 0.97
--- NOTE | 2020-07-06 19:17 | REP ---
INDICATION: CHEST PAIN. COMPARISON: 05/21/2020. TECHNIQUE: SINGLE PORTABLE AP VIEW OF THE CHEST WAS PERFORMED. FINDINGS: THERE IS NO ACUTE INFILTRATE OR PULMONARY EDEMA. LUNGS ARE CLEAR. HEART IS NOT SIGNIFICANTLY ENLARGED. MEDIASTINAL SILHOUETTE IS UNREMARKABLE. THE VISUALIZED OSSEOUS STRUCTURES ARE INTACT. IMPRESSION: NO ACUTE PULMONARY DISEASE. <Electronically signed by Fantasma Collado > 07/06/20 [id number]
[2020-07-06 19:35] LABS: ALBUMIN 3.9 GM/DL (3.2-5.2); ALT/SGPT 32 U/L (12-78); BILIRUBIN,DIRECT 0.2 MG/DL (0.0-0.2); BILIRUBIN,TOTAL 0.9 MG/DL (0.2-1.0); BLOOD UREA NITROGEN 12 MG/DL (7-18); CALCIUM LEVEL 8.5 MG/DL (8.5-10.1); CARBON DIOXIDE LEVEL 26 MEQ/L (21-32); CHLORIDE LEVEL 108 MEQ/L (98-107); CPK CREATINE PHOSPHOKINASE 116 U/L (26-192); CREATININE FOR GFR 0.92 MG/DL (0.55-1.30); FREE THYROXINE INDEX 3.2 % (1.3-4.8); GLOMERULAR FILTRATION RATE > 60.0 (>58); GLUCOSE, FASTING 84 MG/DL (70-100); MB/CK RELATIVE INDEX 0.86 (< OR =4); POTASSIUM SERUM 3.9 MEQ/L (3.5-5.1); SODIUM LEVEL 142 MEQ/L (136-145); T UPTAKE 33 % (30-39); THYROXINE (T4) 9.8 UG/DL (4.5-12.0); TOTAL PROTEIN 7.6 GM/DL (6.4-8.2); TROPONIN I < 0.02 NG/ML (< 0.10)
[2020-07-06 20:15] VITALS: BP 144/77
--- NOTE | 2020-07-08 08:30 | ECGEPIP ---
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
== END 2020-07-06 20:34 | disposition home or self-care (01) ==
LOC: M ED 18:25
DX: R00.2 Palpitations (principal); E07.9 Disorder of thyroid, unspecified; I10 Essential (primary) hypertension; Z91.013 Allergy to seafood; Z91.030 Bee allergy status; Z98.84 Bariatric surgery status

== ENCOUNTER → 2020-07-12 | Outpatient (CLI) | payer OTHER ==
[~2020-07-12] MED LIST changes: +PARO40TA2 PO
--- NOTE | 2020-07-12 16:17 | REP ---
INDICATION: PAIN AFTER FALL COMPARISON: None. TECHNIQUE: Four views left ankle. FINDINGS: Is linear calcification is seen along the anterior aspect of the lateral malleolus which may represent a small avulsion fracture. No other acute fracture or dislocation is seen. The ankle mortise is anatomic. There is mild inferior calcaneal spurring. IMPRESSION: Suspect avulsion fracture anterior lateral malleolus. <Electronically signed by Fantasma Collado > 07/12/20 [id number]
== END ==
LOC: M WUC 13:41
PROVIDERS: ATTEND Physician Assistant
DX: M25.572 Pain in left ankle and joints of left foot (principal)

== ENCOUNTER → 2020-08-22 | Outpatient (REF) | payer OTHER ==
[~2020-08-22] MED LIST changes: -LABE100T36 PO; +LABE100T5 PO
== END ==
LOC: M LAB REF 16:31
PROVIDERS: ATTEND Physician Assistant
DX: Z20.822 Contact with and (suspected) exposure to COVID-19 (principal)

== ENCOUNTER → 2021-04-16 | Outpatient (CLI) | payer OTHER ==
[~2021-04-16] MED LIST changes: +OMEP40CA4 PO; -OMEP40CA97 PO
[2021-04-16 14:15] LABS: GLOMERULAR FILTRATION RATE > 60.0 (>58)
== END ==
LOC: M LAB 13:16
PROVIDERS: ATTEND Neurological Surgery
DX: D33.2 Benign neoplasm of brain, unspecified (principal)

== ENCOUNTER → 2021-04-17 | Outpatient (CLI) | payer OTHER ==
[~2021-04-17] MED LIST changes: +PROHANCE 279.3MG/ML 15ML VIAL As Ordered ONE; +PROHANCE 279.3MG/ML 5ML VIAL As Ordered ONE
--- NOTE | 2021-04-17 21:32 | REPVR ---
PROCEDURE INFORMATION: Exam: MR Head Without and With Contrast Exam date and time: 04/17/2021 6:31 PM Age: 45 years old Clinical indication: Condition or disease; Brain tumor; Benign neoplasm of brain; Prior surgery; Surgery date: 6+ months; Surgery type: Tumor removed in 2018; Additional info: Dysombryoplastic tumor TECHNIQUE: Imaging protocol: MR of the head without and with intravenous contrast. 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 No evidence of abnormal intracranial enhancement or evidence of recurrent neoplasm within the region of chronic postsurgical resection in the right parietal lobe. No evidence of acute intracranial hemorrhage or extra-axial fluid collection. No evidence of mass effect or midline shift. No white matter abnormalities. No restricted diffusion to suggest acute infarct. Cerebral ventricles: Ventricles, cisterns, and sulci are normal. Bones/joints: Chronic right posterior parietal craniotomy defect. Paranasal sinuses: Normal as visualized. No acute sinusitis. Mastoid air cells: No mastoid effusion. Orbital cavity: Unremarkable. Soft tissues: Unremarkable. IMPRESSION: Chronic postoperative changes in the right parietal lobe, without evidence of recurrent disease. Electronically signed by: Kenneth Lockhart On 04/17/2021 21:31:40 PM
== END ==
LOC: M RAD 03-24 12:44
PROVIDERS: ATTEND Neurological Surgery
DX: D33.2 Benign neoplasm of brain, unspecified (principal)
CPT/HCPCS: 70553; A9576

== ENCOUNTER → 2021-08-26 | Outpatient (CLI) | payer OTHER ==
[~2021-08-26] MED LIST changes: +LOSA50TA28 PO; -LOSA50TA88 PO; -PROHANCE 279.3MG/ML 15ML VIAL As Ordered ONE; -PROHANCE 279.3MG/ML 5ML VIAL As Ordered ONE
[2021-08-26 13:08] LABS: HEMATOCRIT 35.5 % (36.0-47.0); HEMOGLOBIN 11.5 g/dl (12.0-15.5); MEAN CORPUSCULAR HEMOGLOBIN 26.3 pg (27.0-33.0); MEAN CORPUSCULAR HGB CONC 32.4 g/dl (32.0-36.5); MEAN CORPUSCULAR VOLUME 81.2 fl (80.0-96.0); PLATELET COUNT, AUTOMATED 381 10^3/uL (150-450); RED BLOOD COUNT 4.37 10^6/uL (4.00-5.40); WHITE BLOOD COUNT 6.6 10^3/uL (4.0-10.0)
[2021-08-26 13:45] LABS: ALBUMIN 3.6 GM/DL (3.2-5.2); ALT/SGPT 27 U/L (12-78); BILIRUBIN,TOTAL 0.9 MG/DL (0.2-1.0); BLOOD UREA NITROGEN 12 MG/DL (7-18); CALCIUM LEVEL 8.4 MG/DL (8.5-10.1); CARBON DIOXIDE LEVEL 25 MEQ/L (21-32); CHLORIDE LEVEL 110 MEQ/L (98-107); CHOLESTEROL LEVEL 136 MG/DL (<200); CHOLESTEROL RISK RATIO 2.893 (<5); CREATININE FOR GFR 0.74 MG/DL (0.55-1.30); GLOMERULAR FILTRATION RATE > 60.0 (>58); GLUCOSE, FASTING 96 MG/DL (70-100); HDL CHOLESTEROL 47 MG/DL (>40); LDL CHOLESTEROL 76 MG/DL (<100); NON-HDL-C 89 MG/DL; POTASSIUM SERUM 4.4 MEQ/L (3.5-5.1); SODIUM LEVEL 139 MEQ/L (136-145); THYROID STIMULATING HORMONE 0.756 uIU/ML (0.358-3.740); TOTAL PROTEIN 6.9 GM/DL (6.4-8.2); TRIGLYCERIDES LEVEL 63 MG/DL (<150)
[2021-08-26 14:17] LABS: HEMOGLOBIN A1c 5.7 %
== END ==
LOC: M LAB 11:58
PROVIDERS: ATTEND Family Medicine
DX: R53.83 Other fatigue (principal); I10 Essential (primary) hypertension; E03.9 Hypothyroidism, unspecified

== ENCOUNTER → 2022-01-16 | Outpatient (CLI) | payer OTHER ==
[2022-01-16 10:11] LABS: BASO % 0.6 % (0.0-1.0); EOS # 0.2 10^3/uL (0.0-0.5); EOS % 2.5 % (0.0-3.0); HEMATOCRIT 35.6 % (36.0-47.0); HEMOGLOBIN 11.1 g/dl (12.0-15.5); LYMPH # 2.1 10^3/uL (1.5-5.0); LYMPH % 30.9 % (24.0-44.0); MEAN CORPUSCULAR HEMOGLOBIN 25.4 pg (27.0-33.0); MEAN CORPUSCULAR HGB CONC 31.2 g/dl (32.0-36.5); MEAN CORPUSCULAR VOLUME 81.5 fl (80.0-96.0); MONO # 0.4 10^3/uL (0.0-0.8); MONO % 6.6 % (2.0-8.0); NEUTROPHILS % 59.1 % (36.0-66.0); PLATELET COUNT, AUTOMATED 406 10^3/uL (150-450); RED BLOOD COUNT 4.37 10^6/uL (4.00-5.40); WHITE BLOOD COUNT 6.7 10^3/uL (4.0-10.0)
[2022-01-16 10:30] LABS: ERYTHROCYTE SEDIMENTATION RATE 21 mm/hr (0-20)
[2022-01-16 11:01] LABS: ALBUMIN 3.7 GM/DL (3.2-5.2); ALT/SGPT 26 U/L (12-78); BILIRUBIN,TOTAL 0.7 MG/DL (0.2-1.0); BLOOD UREA NITROGEN 12 MG/DL (7-18); CALCIUM LEVEL 9.2 MG/DL (8.5-10.1); CARBON DIOXIDE LEVEL 26 MEQ/L (21-32); CHLORIDE LEVEL 108 MEQ/L (98-107); FREE T4 0.99 NG/DL (0.76-1.46); GLOMERULAR FILTRATION RATE > 60.0 (>58); GLUCOSE, FASTING 85 MG/DL (70-100); POTASSIUM SERUM 4.2 MEQ/L (3.5-5.1); SODIUM LEVEL 140 MEQ/L (136-145); TOTAL PROTEIN 7.1 GM/DL (6.4-8.2)
== END ==
LOC: M LAB 09:44
PROVIDERS: ATTEND Nurse Practitioner Family
DX: L30.9 Dermatitis, unspecified (principal)

== ENCOUNTER → 2022-08-18 | Outpatient (CLI) | payer OTHER ==
[~2022-08-18] MED LIST changes: -LABE100T5 PO; +LABE100T71 PO; -LABE300T2; -LABE300T2 PO; +LABE300T55; +LABE300T55 PO
[2022-08-18 11:05] LABS: HEMATOCRIT 37.1 % (36.0-47.0); HEMOGLOBIN 11.8 g/dl (12.0-15.5); MEAN CORPUSCULAR HEMOGLOBIN 25.6 pg (27.0-33.0); MEAN CORPUSCULAR HGB CONC 31.8 g/dl (32.0-36.5); MEAN CORPUSCULAR VOLUME 80.5 fl (80.0-96.0); PLATELET COUNT, AUTOMATED 426 10^3/uL (150-450); RED BLOOD COUNT 4.61 10^6/uL (4.00-5.40); WHITE BLOOD COUNT 7.1 10^3/uL (4.0-10.0)
[2022-08-18 11:35] LABS: HEMOGLOBIN A1c 5.5 % (4.0-6.0)
[2022-08-18 11:36] LABS: THYROID STIMULATING HORMONE 2.866 uIU/ML (0.55-4.78)
[2022-08-18 11:37] LABS: ALBUMIN 3.6 G/DL (3.2-5.2); ALKALINE PHOSPHATASE 102 U/L (46-116); ALT/SGPT 22 U/L (7.0-40); AST/SGOT 23 U/L (<34); BILIRUBIN,TOTAL 0.5 MG/DL (0.3-1.2); BLOOD UREA NITROGEN 12 MG/DL (9-23); CALCIUM LEVEL 8.7 MG/DL (8.5-10.1); CARBON DIOXIDE LEVEL 29 MMOL/L (20-31); CHLORIDE LEVEL 104 MMOL/L (98-107); CHOLESTEROL LEVEL 151 MG/DL (<200); CHOLESTEROL RISK RATIO 3.44 (<5); CREATININE FOR GFR 0.69 MG/DL (0.55-1.30); GLOMERULAR FILTRATION RATE > 60.0 (>58); GLUCOSE, FASTING 94 MG/DL (60-100); HDL CHOLESTEROL 43.8 MG/DL (>40); IRON (FE) 36 UG/DL (50-170); LDL CHOLESTEROL 93.8 MG/DL (<100); NON-HDL-C 107 MG/DL; PERCENT SATURATION 9.1 % (13.2-45.0); POTASSIUM SERUM 4.5 MMOL/L (3.5-5.1); SODIUM LEVEL 138 MMOL/L (136-145); TOTAL 25(OH) VITAMIN D 39.9 NG/ML (20.0-100.0); TOTAL IRON BINDING CAPACITY 395 UG/DL (250-425); TOTAL PROTEIN 6.9 G/DL (5.7-8.2); TRIGLYCERIDES LEVEL 67 MG/DL (<150)
== END ==
LOC: M LAB 10:03
PROVIDERS: ATTEND Family Medicine
DX: D64.9 Anemia, unspecified (principal); R53.83 Other fatigue

== ENCOUNTER → 2023-02-18 | Outpatient (CLI) | payer OTHER | LOC: M PLARAD 13:18 | PROVIDERS: ATTEND Neurological Surgery | DX: D33.2 Benign neoplasm of brain, unspecified (principal) ==

== ENCOUNTER → 2023-06-28 | Outpatient (CLI) | payer OTHER ==
[~2023-06-28] MED LIST changes: +FERR325T19; +LOSA100T46
== END ==
LOC: M WHC 14:22
PROVIDERS: ATTEND Family Medicine
DX: Z12.31 Encounter for screening mammogram for malignant neoplasm of breast (principal)

== ENCOUNTER → 2023-06-28 | Outpatient (CLI) | payer OTHER ==
[~2023-06-28] MED LIST changes: +E-Z-GAS II EFFERVESCENT PACKET (SODIUM BICARB./CITRIC ACID/SIMETHICONE) As Ordered ONE; +E-Z-HD 98% w/w 340GM SUSP BTL As Ordered ONE; +E-Z-PAQUE 96% w/w SUSP 176GM BTL As Ordered ONE
== END ==
LOC: M RAD 09:31
PROVIDERS: ATTEND Family Medicine
DX: R13.10 Dysphagia, unspecified (principal); K21.9 Gastro-esophageal reflux disease without esophagitis; K27.9 Peptic ulcer, site unspecified, unspecified as acute or chronic, without hemorrhage or perforation

== ENCOUNTER → 2023-07-27 | Outpatient (CLI) | payer OTHER ==
[~2023-07-27] MED LIST changes: -E-Z-GAS II EFFERVESCENT PACKET (SODIUM BICARB./CITRIC ACID/SIMETHICONE) As Ordered ONE; -E-Z-HD 98% w/w 340GM SUSP BTL As Ordered ONE; -E-Z-PAQUE 96% w/w SUSP 176GM BTL As Ordered ONE
[2023-07-27 10:18] LABS: HEMATOCRIT 41.6 % (36.0-47.0); HEMOGLOBIN 14.2 g/dl (12.0-15.5); MEAN CORPUSCULAR HEMOGLOBIN 29.8 pg (27.0-33.0); MEAN CORPUSCULAR HGB CONC 34.1 g/dl (32.0-36.5); MEAN CORPUSCULAR VOLUME 87.4 fl (80.0-96.0); PLATELET COUNT, AUTOMATED 384 10^3/uL (150-450); RED BLOOD COUNT 4.76 10^6/uL (4.00-5.40); WHITE BLOOD COUNT 5.6 10^3/uL (4.0-10.0)
[2023-07-27 11:09] LABS: HEMOGLOBIN A1c 5.6 % (4.0-6.0)
[2023-07-27 11:30] LABS: ALBUMIN 3.5 G/DL (3.2-5.2); ALKALINE PHOSPHATASE 103 U/L (46-116); ALT/SGPT 39 U/L (7.0-40); AST/SGOT 22 U/L (<34); BILIRUBIN,TOTAL 0.9 MG/DL (0.3-1.2); BLOOD UREA NITROGEN 20 MG/DL (9-23); CALCIUM LEVEL 8.8 MG/DL (8.5-10.1); CARBON DIOXIDE LEVEL 26 MMOL/L (20-31); CHLORIDE LEVEL 105 MMOL/L (98-107); CHOLESTEROL LEVEL 167 MG/DL (<200); CHOLESTEROL RISK RATIO 3.61 (<5); CREATININE FOR GFR 0.76 MG/DL (0.55-1.30); GLOMERULAR FILTRATION RATE > 60.0 (>58); GLUCOSE, FASTING 92 MG/DL (60-100); HDL CHOLESTEROL 46.2 MG/DL (>40); IRON (FE) 97 UG/DL (50-170); LDL CHOLESTEROL 107.2 MG/DL (<100); NON-HDL-C 120.8 MG/DL; PERCENT SATURATION 30.7 % (13.2-45.0); POTASSIUM SERUM 3.9 MMOL/L (3.5-5.1); SODIUM LEVEL 138 MMOL/L (136-145); TOTAL IRON BINDING CAPACITY 316 UG/DL (250-425); TOTAL PROTEIN 6.6 G/DL (5.7-8.2); TRIGLYCERIDES LEVEL 68 MG/DL (<150); VITAMIN B12 LEVEL 491 PG/ML (211-911)
[2023-07-27 11:31] LABS: THYROID STIMULATING HORMONE 3.356 uIU/ML (0.55-4.78); TOTAL 25(OH) VITAMIN D 28.8 NG/ML (20.0-100.0)
== END ==
LOC: M LAB 09:35
PROVIDERS: ATTEND Family Medicine
DX: I10 Essential (primary) hypertension (principal); E11.9 Type 2 diabetes mellitus without complications; R53.83 Other fatigue

== ENCOUNTER → 2023-08-27 | Outpatient (CLI) | payer OTHER ==
[~2023-08-27] MED LIST changes: +LABE100T40 PO; -LABE100T71 PO; +LABE300T28; +LABE300T28 PO; -LABE300T55; -LABE300T55 PO
== END ==
LOC: M RAD 08:35
PROVIDERS: ATTEND Family Medicine
DX: M19.91 Primary osteoarthritis, unspecified site (principal); R52 Pain, unspecified

== ENCOUNTER 2023-09-15 07:51 | Day surgery (SDC) | payer OTHER ==
[~2023-09-15] VITALS: Ht 160 cm; Wt 102.9 kg
[~2023-09-15 07:51] MED LIST changes: +ERGO500029 PO; -FERR325T19; +FERR325T19 PO; +FLUO40CA PO; +KETOROLAC 60MG 2ML VIAL As Ordered ONE; +LIDOCAINE 2% 100MG/5ML SDV (FOR ANES.) As Ordered ONE; +METO1TAB32 PO; +MIDAZOLAM INJ 2MG/2ML VIAL As Ordered ONE; +ONDANSETRON 4MG 2ML VIAL As Ordered ONE; +OXYB5TAB14 PO; +fentaNYL 100 MCG/2 ML INJECTION As Ordered ONE; +propofoL 200 MG/20 ML VIAL As Ordered ONE
[2023-09-15] MEDS ORDERED: LR 1,000 ML IV SCH (08:00)
[2023-09-15] MEDS: ceFAZolin SOD 2 GM in IV 1 EA IV ONE (09:38)
[2023-09-15] MEDS: LIDOCAINE 1% SDV 30ML VIAL As Ordered ONE (09:42)
[2023-09-15 10:59] VITALS: BP 128/80; TEMP 97.8; O2SAT 98
== END 2023-09-15 11:11 | disposition home or self-care (01) ==
LOC: M SDC 07:51
PROVIDERS: ATTEND Podiatrist Foot & Ankle Surgery
DX: M20.11 Hallux valgus (acquired), right foot (principal); M21.611 Bunion of right foot; I10 Essential (primary) hypertension; E78.00 Pure hypercholesterolemia, unspecified; Z79.899 Other long term (current) drug therapy; Z90.710 Acquired absence of both cervix and uterus; Z98.84 Bariatric surgery status; Z88.5 Allergy status to narcotic agent; Z91.041 Radiographic dye allergy status; Z91.030 Bee allergy status; Z91.013 Allergy to seafood
CPT/HCPCS: 28299; 97116; C1713; J0665; J0690; J1100; J1885; J2250; J2405; J3010

== ENCOUNTER → 2023-12-30 | Outpatient (CLI) | payer OTHER, SELFPAY ==
[~2023-12-30] MED LIST changes: +AMLO1TAB25 PO; +BOTO10VL IM; -KETOROLAC 60MG 2ML VIAL As Ordered ONE; -LIDOCAINE 2% 100MG/5ML SDV (FOR ANES.) As Ordered ONE; -MIDAZOLAM INJ 2MG/2ML VIAL As Ordered ONE; -ONDANSETRON 4MG 2ML VIAL As Ordered ONE; -fentaNYL 100 MCG/2 ML INJECTION As Ordered ONE; -propofoL 200 MG/20 ML VIAL As Ordered ONE
[2023-12-30 10:37] LABS: HEMATOCRIT 41.5 % (36.0-47.0); HEMOGLOBIN 14.2 g/dl (12.0-15.5); MEAN CORPUSCULAR HEMOGLOBIN 30.9 pg (27.0-33.0); MEAN CORPUSCULAR HGB CONC 34.2 g/dl (32.0-36.5); MEAN CORPUSCULAR VOLUME 90.4 fl (80.0-96.0); PLATELET COUNT, AUTOMATED 331 10^3/uL (150-450); RED BLOOD COUNT 4.59 10^6/uL (4.00-5.40); WHITE BLOOD COUNT 5.8 10^3/uL (4.0-10.0)
[2023-12-30 10:44] LABS: HEMOGLOBIN A1c 5.2 % (4.0-6.0)
[2023-12-30 11:00] LABS: ALBUMIN 3.5 G/DL (3.2-5.2); ALKALINE PHOSPHATASE 80 U/L (46-116); ALT/SGPT 27 U/L (7.0-40); AST/SGOT 13 U/L (<34); BILIRUBIN,TOTAL 1.3 MG/DL (0.3-1.2); BLOOD UREA NITROGEN 11 MG/DL (9-23); CALCIUM LEVEL 8.8 MG/DL (8.5-10.1); CARBON DIOXIDE LEVEL 27 MMOL/L (20-31); CHLORIDE LEVEL 107 MMOL/L (98-107); CHOLESTEROL LEVEL 151 MG/DL (<200); CHOLESTEROL RISK RATIO 3.63 (<5); CREATININE FOR GFR 0.76 MG/DL (0.55-1.30); GLOMERULAR FILTRATION RATE > 60.0 (>58); GLUCOSE, FASTING 95 MG/DL (60-100); HDL CHOLESTEROL 41.5 MG/DL (>40); IRON (FE) 149 UG/DL (50-170); LDL CHOLESTEROL 93.7 MG/DL (<100); NON-HDL-C 109.5 MG/DL; PERCENT SATURATION 47.3 % (13.2-45.0); POTASSIUM SERUM 4.1 MMOL/L (3.5-5.1); SODIUM LEVEL 140 MMOL/L (136-145); THYROID STIMULATING HORMONE 5.359 uIU/ML (0.55-4.78); TOTAL IRON BINDING CAPACITY 315 UG/DL (250-425); TOTAL PROTEIN 6.3 G/DL (5.7-8.2); TRIGLYCERIDES LEVEL 79 MG/DL (<150)
[2023-12-30 11:01] LABS: FOLLICLE STIMULATING HORMONE 4.3 mIU/ML
[2023-12-30 11:02] LABS: ESTRADIOL 351.4 PG/ML; LUTEINIZING HORMONE 5.1 mIU/ML
== END ==
LOC: M LAB 08:51
PROVIDERS: ATTEND Family Medicine
DX: D64.9 Anemia, unspecified (principal); R53.83 Other fatigue; E03.9 Hypothyroidism, unspecified

== ENCOUNTER 2024-01-25 10:24 | Day surgery (SDC) | payer OTHER ==
[~2024-01-25] VITALS: Ht 160 cm; Wt 102.5 kg
[~2024-01-25 10:24] MED LIST changes: +FLUO-96 PO
[2024-01-25] MEDS: NS 1,000 ML IV ONE (10:49)
[2024-01-25] MEDS ORDERED: fentaNYL 100 MCG/2 ML INJECTION As Ordered ONE (12:13)
[2024-01-25] MEDS ORDERED: LIDOCAINE 2% 100MG/5ML SDV (FOR ANES.) As Ordered ONE (12:14)
[2024-01-25] MEDS ORDERED: propofoL 200 MG/20 ML VIAL As Ordered ONE (12:14)
[2024-01-25 13:24] VITALS: TEMP 97.5
[2024-01-25 13:42] VITALS: BP 160/94; O2SAT 97
== END 2024-01-25 13:51 | disposition home or self-care (01) ==
LOC: M OPP 10:24
PROVIDERS: ATTEND Internal Medicine Gastroenterology
DX: Z12.11 Encounter for screening for malignant neoplasm of colon (principal); D12.2 Benign neoplasm of ascending colon; K64.8 Other hemorrhoids; K57.30 Diverticulosis of large intestine without perforation or abscess without bleeding; K44.9 Diaphragmatic hernia without obstruction or gangrene; R13.10 Dysphagia, unspecified; Z98.0 Intestinal bypass and anastomosis status; Z88.4 Allergy status to anesthetic agent; Z88.8 Allergy status to other drugs, medicaments and biological substances; Z91.013 Allergy to seafood; Z91.041 Radiographic dye allergy status
CPT/HCPCS: 43239; 43249; 45385; 88305; J3010

== ENCOUNTER 2024-06-01 23:48 | Emergency (ER) | payer OTHER ==
[~2024-06-01] VITALS: Ht 160 cm; Wt 100.0 kg
[2024-06-02 00:46] LABS: BASO % 0.6 % (0.0-1.0); EOS # 0.2 10^3/uL (0.0-0.5); EOS % 2.4 % (0.0-3.0); HEMATOCRIT 39.2 % (36.0-47.0); HEMOGLOBIN 13.7 g/dl (12.0-15.5); LYMPH # 2.4 10^3/uL (1.5-5.0); MEAN CORPUSCULAR HGB CONC 34.9 g/dl (32.0-36.5); MEAN CORPUSCULAR VOLUME 88.7 fl (80.0-96.0); MONO # 0.5 10^3/uL (0.0-0.8); MONO % 6.7 % (2.0-8.0); NEUTROPHILS # 4.1 10^3/uL (1.5-8.5); PLATELET COUNT, AUTOMATED 333 10^3/uL (150-450); RED BLOOD COUNT 4.42 10^6/uL (4.00-5.40); WHITE BLOOD COUNT 7.2 10^3/uL (4.0-10.0)
[2024-06-02 01:10] LABS: ALBUMIN 3.4 G/DL (3.2-5.2); ALKALINE PHOSPHATASE 94 U/L (35-104); ALT/SGPT 32 U/L (7.0-40); AST/SGOT 25 U/L (<34); BILIRUBIN,TOTAL 0.4 MG/DL (0.3-1.2); BLOOD UREA NITROGEN 21 MG/DL (9-23); CALCIUM LEVEL 8.9 MG/DL (8.5-10.1); CARBON DIOXIDE LEVEL 25 MMOL/L (20-31); CHLORIDE LEVEL 105 MMOL/L (98-107); CREATININE FOR GFR 0.72 MG/DL (0.55-1.30); GLOMERULAR FILTRATION RATE > 60.0 (>58); GLUCOSE, FASTING 85 MG/DL (60-100); MAGNESIUM LEVEL 1.8 MG/DL (1.8-2.4); POTASSIUM SERUM 4.5 MMOL/L (3.5-5.1); SODIUM LEVEL 138 MMOL/L (136-145); TOTAL PROTEIN 6.7 G/DL (5.7-8.2)
[2024-06-02] MEDS: KETOROLAC 30 MG/ML 1ML VIAL IV ONE (01:43)
[2024-06-02] MEDS: diphenhydrAMINE 50MG/ML VIAL IV ONE (01:43)
[2024-06-02] MEDS: NS (Normal Saline) 0.9% 1,000 ML IV ONE (01:43)
[2024-06-02] MEDS: METOCLOPRAMIDE INJ 10MG/2ML VIAL IV ONE (01:43)
[2024-06-02 02:50] VITALS: BP 170/99; TEMP 97; O2SAT 97
[2024-06-02] MEDS: ONDANSETRON 4MG 2ML VIAL IV ONE (02:50)
[2024-06-02] MEDS: MORPHINE 4 MG/ML 1ML VIAL IV PRN (02:50)
== END 2024-06-02 03:41 | disposition home or self-care (01) ==
LOC: M ED 23:48
DX: R51.9 Headache, unspecified (principal); F10.10 Alcohol abuse, uncomplicated; E28.2 Polycystic ovarian syndrome; Z91.013 Allergy to seafood; Z91.030 Bee allergy status; Z88.8 Allergy status to other drugs, medicaments and biological substances; Z91.041 Radiographic dye allergy status; Z79.899 Other long term (current) drug therapy
CPT/HCPCS: 70450; 80053; 83735; 85025; 96374; 96375; 99284; J1200; J1885; J2405; J2765

== ENCOUNTER 2024-06-04 00:06 | Inpatient (IN) | payer OTHER ==
[~2024-06-04] VITALS: Ht 157.5 cm; Wt 100.0 kg
[2024-06-04] VITALS (9 sets, daily range): BP systolic 114–136; BP diastolic 64–78; TEMP 97.3–98.4; O2SAT 91–97
[2024-06-04 00:56] LABS: BASO # 0.1 10^3/uL (0.0-0.2); BASO % 0.5 % (0.0-1.0); EOS # 0.2 10^3/uL (0.0-0.5); HEMATOCRIT 42.6 % (36.0-47.0); HEMOGLOBIN 14.7 g/dl (12.0-15.5); LYMPH # 2.9 10^3/uL (1.5-5.0); LYMPH % 32.1 % (24.0-44.0); MEAN CORPUSCULAR HEMOGLOBIN 30.8 pg (27.0-33.0); MEAN CORPUSCULAR HGB CONC 34.5 g/dl (32.0-36.5); MEAN CORPUSCULAR VOLUME 89.1 fl (80.0-96.0); MONO # 0.6 10^3/uL (0.0-0.8); MONO % 6.9 % (2.0-8.0); NEUTROPHILS # 5.3 10^3/uL (1.5-8.5); NEUTROPHILS % 58.1 % (36.0-66.0); PLATELET COUNT, AUTOMATED 338 10^3/uL (150-450); RED BLOOD COUNT 4.78 10^6/uL (4.00-5.40); WHITE BLOOD COUNT 9.1 10^3/uL (4.0-10.0)
[2024-06-04] MEDS: LORazepam 2 MG/ML 1ML VIAL IV STA (01:00)
[2024-06-04] MEDS ORDERED: LORazepam 2 MG/ML 1ML VIAL IV PRN ×2 (01:05→05:25)
[2024-06-04 01:13] LABS: ETHYL ALCOHOL (ETHANOL) < 0.003 % (0.000-0.010)
[2024-06-04 01:15] LABS: BLOOD UREA NITROGEN 19 MG/DL (9-23); CALCIUM LEVEL 9.2 MG/DL (8.5-10.1); CARBON DIOXIDE LEVEL 23 MMOL/L (20-31); CHLORIDE LEVEL 106 MMOL/L (98-107); CK-MB VALUE MASS < 1.0 NG/ML (<3.6); CPK CREATINE PHOSPHOKINASE 107 U/L (34-145); CREATININE FOR GFR 0.79 MG/DL (0.55-1.30); GLOMERULAR FILTRATION RATE > 60.0 (>58); GLUCOSE, FASTING 115 MG/DL (60-100); MB/CK RELATIVE INDEX 0.93 (< OR =4); POTASSIUM SERUM 3.7 MMOL/L (3.5-5.1); SODIUM LEVEL 139 MMOL/L (136-145)
[2024-06-04] MEDS: levETIRAcetam INJection 1,000 MG in D5W 100 ML IV ONE (01:21)
[2024-06-04 02:02] LABS: VENOUS BASE EXCESS -9.7 (-2.0-2.0); VENOUS HCO3 17.7 MMOL/L (23.0-27.0); VENOUS O2 SATURATION 95.3 % (60.0-80.0); VENOUS PARTIAL PRESSURE CO2 44.4 mmHg (38.0-50.0); VENOUS PARTIAL PRESSURE O2 92.3 mmHg (30.0-50.0); VENOUS PH 7.219 UNITS (7.330-7.430); VENOUS STANDARD HCO3 16.8 MMOL/L; VENOUS TOTAL CO2 19.1 MMOL/L (24.0-28.0)
[2024-06-04 02:29] LABS: ALBUMIN 3.4 G/DL (3.2-5.2); ALKALINE PHOSPHATASE 98 U/L (35-104); ALT/SGPT 38 U/L (7.0-40); AST/SGOT 33 U/L (<34); BILIRUBIN,DIRECT 0.1 MG/DL (<0.4); BILIRUBIN,TOTAL 0.4 MG/DL (0.3-1.2); CK-MB VALUE MASS < 1.0 NG/ML (<3.6); CPK CREATINE PHOSPHOKINASE 102 U/L (34-145); MB/CK RELATIVE INDEX 0.98 (< OR =4); TOTAL PROTEIN 6.6 G/DL (5.7-8.2)
[2024-06-04] MEDS: NS (Normal Saline) 0.9% 1,000 ML IV ONE (02:38)
[2024-06-04 04:16] LABS: APPEARANCE, URINE CLEAR (CLEAR); BACTERIA, URINE AUTO NEGATIVE (NEGATIVE); BILIRUBIN, URINE AUTO NEGATIVE (NEGATIVE); BLOOD, URINE BLOOD NEGATIVE (NEGATIVE); COLOR, URINE YELLOW (YELLOW); GLUCOSE, URINE (UA) AUTO NEGATIVE (NEGATIVE); KETONE, URINE AUTO TRACE mg/dL (NEGATIVE); LEUKOCYTE ESTERASE, URINE AUTO NEGATIVE (NEGATIVE); MUCUS, URINE SMALL (NEGATIVE); NITRITE, URINE AUTO NEGATIVE (NEGATIVE); PROTEIN, URINE AUTO NEGATIVE (NEGATIVE); RBC, URINE AUTO 0 /HPF (0-3); SPECIFIC GRAVITY URINE AUTO 1.016 (1.002-1.035); SQUAMOUS EPITHELIAL CELL UR AU 0 /HPF (0-6); UROBILINOGEN, URINE AUTO 0.2 mg/dL (0.0-2.0); WBC, URINE AUTO 1 /HPF (0-3)
[2024-06-04] MEDS: HYDROMORPHONE HCL 0.5 MG/ 0.5 ML SYRINGE IV PRN (04:25)
[2024-06-04 04:37] LABS: AMPHETAMINES LEVEL URINE NEGATIVE (NEGATIVE); BARBITURATES URINE NEGATIVE (NEGATIVE); BENZODIAZEPINES URINE NEGATIVE (NEGATIVE); CANNABINOIDS URINE NEGATIVE (NEGATIVE); COCAINE METABOLITE URINE NEGATIVE (NEGATIVE); METHADONE URINE NEGATIVE (NEGATIVE); OPIATES URINE NEGATIVE (NEGATIVE); PHENCYCLIDINE URINE NEGATIVE (NEGATIVE)
[2024-06-04] MEDS ORDERED: LEVO150T7 PO (04:56)
[2024-06-04] MEDS ORDERED: DUPI300I SC (04:56)
[2024-06-04] MEDS ORDERED: HOME MED LIST COMPLETE! XX SCH ×3 (05:00→06:25)
[2024-06-04] MEDS: VALPROATE SOD INJ 1,000 MG in D5W 50 ML IV ONE (05:07)
[2024-06-04] MEDS: PANTOPRAZOLE 40MG VIAL IV ONE (06:26)
[2024-06-04 06:28] LABS: URINE PREG TEST NEGATIVE (NEGATIVE)
[2024-06-04] MEDS: ACETAMINOPHEN 325 MG TAB PO PRN (06:33)
[2024-06-04] MEDS: METOPROLOL SUCC *XL* 25MG TAB (TopROL *XL*) PO SCH (08:08)
[2024-06-04] MEDS: SPIRONOLACTONE 25 MG TAB PO SCH (08:08)
[2024-06-04] MEDS: DOCUSATE SODIUM 100MG CAPSULE PO SCH (08:09)
[2024-06-04] MEDS: LOSARTAN 50MG TABLET PO SCH (08:09)
[2024-06-04] MEDS: DIVALPROEX 500MG *ER* TAB PO SCH (08:09)
[2024-06-04] MEDS: FLUoxetine 20MG CAP PO SCH ×2 (08:10→20:53)
[2024-06-04 09:36] LABS: ALBUMIN 3.2 G/DL (3.2-5.2); ALKALINE PHOSPHATASE 81 U/L (35-104); ALT/SGPT 33 U/L (7.0-40); AST/SGOT 24 U/L (<34); BILIRUBIN,DIRECT 0.2 MG/DL (<0.4); BILIRUBIN,TOTAL 0.6 MG/DL (0.3-1.2); BLOOD UREA NITROGEN 11 MG/DL (9-23); CALCIUM LEVEL 8.5 MG/DL (8.5-10.1); CARBON DIOXIDE LEVEL 23 MMOL/L (20-31); CHLORIDE LEVEL 106 MMOL/L (98-107); CREATININE FOR GFR 0.65 MG/DL (0.55-1.30); GLOMERULAR FILTRATION RATE > 60.0 (>58); GLUCOSE, FASTING 124 MG/DL (60-100); POTASSIUM SERUM 4.3 MMOL/L (3.5-5.1); SODIUM LEVEL 138 MMOL/L (136-145); TOTAL PROTEIN 6.1 G/DL (5.7-8.2)
[2024-06-04] MEDS: HEPARIN SOD (PORCINE) 5000UNITS/ML 1ML VIAL/SYRINGE SC SCH (15:04)
[2024-06-04] MEDS ORDERED: DEPA500T2 PO (18:48)
[2024-06-04] MEDS ORDERED: COLA100C5 PO (18:48)
[2024-06-04] MEDS ORDERED: METO1TAB32 PO (18:48)
[2024-06-04] MEDS ORDERED: PILL CUTTER 1 EACH XX PRN (18:50)
[2024-06-04] MEDS: METOCLOPRAMIDE INJ 10MG/2ML VIAL IV ONE (18:50)
[2024-06-04] MEDS: RIZATRIPTAN BENZOATE 10 MG TAB PO PRN (18:54)
[2024-06-04] MEDS ORDERED: FIORICET TAB PO PRN (19:05)
[2024-06-04] MEDS ORDERED: ONDANSETRON 4MG 2ML VIAL IV PRN (19:05)
[2024-06-04] MEDS ORDERED: diphenhydrAMINE 50MG/ML VIAL IM PRN (19:05)
[2024-06-04] MEDS ORDERED: MAG SULF 1GM/100ML (MAG RUN) 1 GM in IV 1 EA IV PRN (19:10)
[2024-06-04] MEDS: FIORICET TAB PO ONE (19:48)
[2024-06-04] MEDS: ONDANSETRON 4MG 2ML VIAL IV ONE (19:49)
[2024-06-04] MEDS: MAG SULF 1GM/100ML (MAG RUN) 1 GM in IV 1 EA IV ONE ×2 (19:49→20:53)
[2024-06-04] MEDS: diphenhydrAMINE 50MG/ML VIAL IV STA (19:49)
[2024-06-04] MEDS: LEVOTHYROXINE 150MCG TABLET (0.15MG) PO SCH (20:54)
[2024-06-05] VITALS (10 sets, daily range): BP systolic 118–126; BP diastolic 68–80; TEMP 97.4–97.8; O2SAT 94–97
[2024-06-05 07:15] LABS: BASO % 0.6 % (0.0-1.0); EOS # 0.1 10^3/uL (0.0-0.5); EOS % 2.6 % (0.0-3.0); HEMATOCRIT 38.2 % (36.0-47.0); HEMOGLOBIN 13.1 g/dl (12.0-15.5); LYMPH # 2.4 10^3/uL (1.5-5.0); LYMPH % 44.5 % (24.0-44.0); MEAN CORPUSCULAR HEMOGLOBIN 30.7 pg (27.0-33.0); MEAN CORPUSCULAR HGB CONC 34.3 g/dl (32.0-36.5); MEAN CORPUSCULAR VOLUME 89.5 fl (80.0-96.0); MONO # 0.3 10^3/uL (0.0-0.8); MONO % 5.8 % (2.0-8.0); NEUTROPHILS # 2.5 10^3/uL (1.5-8.5); NEUTROPHILS % 46.1 % (36.0-66.0); PLATELET COUNT, AUTOMATED 305 10^3/uL (150-450); RED BLOOD COUNT 4.27 10^6/uL (4.00-5.40); WHITE BLOOD COUNT 5.4 10^3/uL (4.0-10.0)
[2024-06-05 07:39] LABS: BLOOD UREA NITROGEN 9 MG/DL (9-23); CALCIUM LEVEL 8.8 MG/DL (8.5-10.1); CARBON DIOXIDE LEVEL 25 MMOL/L (20-31); CHLORIDE LEVEL 109 MMOL/L (98-107); CREATININE FOR GFR 0.73 MG/DL (0.55-1.30); GLOMERULAR FILTRATION RATE > 60.0 (>58); GLUCOSE, FASTING 81 MG/DL (60-100); MAGNESIUM LEVEL 2.2 MG/DL (1.8-2.4); PHOSPHORUS LEVEL 3.8 MG/DL (2.5-4.9); POTASSIUM SERUM 4.2 MMOL/L (3.5-5.1); SODIUM LEVEL 142 MMOL/L (136-145)
[2024-06-05] MEDS: methylPREDNISolone 40MG 1ML VIAL IV ONE ×2 (15:55→20:05)
[2024-06-05] MEDS: diphenhydrAMINE 50MG/ML VIAL IV ONE (20:06)
[2024-06-05] MEDS ORDERED: PROHANCE 279.3MG/ML 5ML VIAL As Ordered ONE (21:30)
[2024-06-05] MEDS ORDERED: PROHANCE 279.3MG/ML 15ML VIAL As Ordered ONE (21:30)
[2024-06-06] VITALS (10 sets, daily range): BP systolic 128–138; BP diastolic 77–89; TEMP 97.2–98.3; O2SAT 92–97
[2024-06-06] MEDS ORDERED: DEPA500T2 PO (12:31)
== END 2024-06-06 12:51 | disposition home or self-care (01) | DRG 53 ==
LOC: EDBD 00:06 → M ED 00:06 → EEVIPCON 05:23 → M ED INP 05:23 → M PCU 12:57
PROVIDERS: ADMIT Student in an Organized Health Care Education/Training Program; ATTEND Student in an Organized Health Care Education/Training Program
DX: G40.409 Other generalized epilepsy and epileptic syndromes, not intractable, without status epilepticus (principal); Z68.41 Body mass index [BMI] 40.0-44.9, adult; I10 Essential (primary) hypertension; E66.01 Morbid (severe) obesity due to excess calories; E03.9 Hypothyroidism, unspecified; F32.A Depression, unspecified; G43.909 Migraine, unspecified, not intractable, without status migrainosus; I35.0 Nonrheumatic aortic (valve) stenosis; E28.2 Polycystic ovarian syndrome; Z85.841 Personal history of malignant neoplasm of brain; Z91.013 Allergy to seafood; Z91.030 Bee allergy status; Z91.040 Latex allergy status; Z88.8 Allergy status to other drugs, medicaments and biological substances; Z79.899 Other long term (current) drug therapy; D64.9 Anemia, unspecified

== ENCOUNTER → 2024-08-10 | Outpatient (CLI) | payer MEDICAID, OTHER ==
[~2024-08-10] MED LIST changes: +COLA100C5 PO; +DEPA500T2 PO; +DUPI300I SC; +LEVO150T7 PO
[2024-08-10 11:55] LABS: HEMATOCRIT 41.3 % (36.0-47.0); HEMOGLOBIN 14.4 g/dl (12.0-15.5); MEAN CORPUSCULAR HEMOGLOBIN 30.6 pg (27.0-33.0); MEAN CORPUSCULAR HGB CONC 34.9 g/dl (32.0-36.5); MEAN CORPUSCULAR VOLUME 87.7 fl (80.0-96.0); PLATELET COUNT, AUTOMATED 289 10^3/uL (150-450); RED BLOOD COUNT 4.71 10^6/uL (4.00-5.40); WHITE BLOOD COUNT 5.1 10^3/uL (4.0-10.0)
[2024-08-10 12:31] LABS: ALBUMIN 3.3 G/DL (3.2-5.2); ALKALINE PHOSPHATASE 65 U/L (35-104); ALT/SGPT 27 U/L (7.0-40); AST/SGOT 18 U/L (<34); BILIRUBIN,TOTAL 0.8 MG/DL (0.3-1.2); BLOOD UREA NITROGEN 13 MG/DL (9-23); CALCIUM LEVEL 9.5 MG/DL (8.5-10.1); CARBON DIOXIDE LEVEL 27 MMOL/L (20-31); CHLORIDE LEVEL 103 MMOL/L (98-107); CHOLESTEROL LEVEL 158 MG/DL (<200); CHOLESTEROL RISK RATIO 4.09 (<5); CREATININE FOR GFR 0.73 MG/DL (0.55-1.30); GLOMERULAR FILTRATION RATE > 60.0 (>58); GLUCOSE, FASTING 101 MG/DL (60-100); HDL CHOLESTEROL 38.6 MG/DL (>40); IRON (FE) 124 UG/DL (50-170); LDL CHOLESTEROL 102.8 MG/DL (<100); NON-HDL-C 119.4 MG/DL; PERCENT SATURATION 40.1 % (13.2-45.0); POTASSIUM SERUM 4.8 MMOL/L (3.5-5.1); SODIUM LEVEL 139 MMOL/L (136-145); TOTAL IRON BINDING CAPACITY 309 UG/DL (250-425); TOTAL PROTEIN 6.7 G/DL (5.7-8.2); TRIGLYCERIDES LEVEL 83 MG/DL (<150)
[2024-08-10 12:32] LABS: THYROID STIMULATING HORMONE 0.245 uIU/ML (0.55-4.78); TOTAL 25(OH) VITAMIN D 64.1 NG/ML (20.0-100.0)
== END ==
LOC: M LAB 11:01
PROVIDERS: ATTEND Family Medicine
DX: I10 Essential (primary) hypertension (principal)

== ENCOUNTER → 2024-08-31 | Outpatient (CLI) | payer OTHER ==
[~2024-08-31] MED LIST changes: +PROHANCE 279.3MG/ML 15ML VIAL As Ordered ONE; +PROHANCE 279.3MG/ML 5ML VIAL As Ordered ONE
== END ==
LOC: M RAD 06:36
PROVIDERS: ATTEND Nurse Practitioner Family
DX: D33.2 Benign neoplasm of brain, unspecified (principal)
CPT/HCPCS: 70553; A9576

== ENCOUNTER 2024-11-08 07:27 | Emergency (ER) | payer OTHER ==
[~2024-11-08] VITALS: Ht 160 cm; Wt 100.1 kg
[~2024-11-08 07:27] MED LIST changes: -PROHANCE 279.3MG/ML 15ML VIAL As Ordered ONE; -PROHANCE 279.3MG/ML 5ML VIAL As Ordered ONE; +TOPI-257; -TOPI100T9
[2024-11-08] MEDS: NS (Normal Saline) 0.9% 1,000 ML IV ONE (09:47)
[2024-11-08] MEDS: ACETAMINOPHEN 500 MG TAB PO ONE (09:48)
[2024-11-08] MEDS: KETOROLAC 30 MG/ML 1ML VIAL IV ONE (09:48)
[2024-11-08] MEDS: MORPHINE 4 MG/ML 1ML VIAL IV ONE (11:18)
[2024-11-08 12:04] VITALS: BP 133/85; TEMP 98; O2SAT 97
== END 2024-11-08 12:06 | disposition home or self-care (01) ==
LOC: M ED 07:27
DX: R51.9 Headache, unspecified (principal); Z91.030 Bee allergy status; Z91.013 Allergy to seafood; Z88.6 Allergy status to analgesic agent; Z88.8 Allergy status to other drugs, medicaments and biological substances; Z91.041 Radiographic dye allergy status; Z79.899 Other long term (current) drug therapy
CPT/HCPCS: 87486; 87581; 87633; 87798; 99284; J1100; J1885

== ENCOUNTER → 2025-01-08 | Outpatient (CLI) | payer OTHER ==
[~2025-01-08] MED LIST changes: +ONDA-282 PO
== END ==
LOC: M WHC 15:43
PROVIDERS: ATTEND Student in an Organized Health Care Education/Training Program
DX: Z12.39 Encounter for other screening for malignant neoplasm of breast (principal)

== ENCOUNTER → 2025-01-16 | Outpatient (CLI) | payer OTHER | LOC: M WHC 12:46 | PROVIDERS: ATTEND Student in an Organized Health Care Education/Training Program | DX: R92.2 Inconclusive mammogram (principal); N63.20 Unspecified lump in the left breast, unspecified quadrant; R92.322 Mammographic fibroglandular density, left breast ==

== ENCOUNTER 2025-02-05 17:48 | Emergency (ER) | payer OTHER ==
[~2025-02-05] VITALS: Ht 160 cm; Wt 90.6 kg
[2025-02-05] MEDS ORDERED: TOPI-257 (17:57)
[2025-02-05] MEDS: TOPIRAMATE 100 MG TAB PO ONE (18:24)
[2025-02-05 18:51] LABS: BASO # 0.0 10^3/uL (0.0-0.2); BASO % 0.5 % (0.0-1.0); EOS # 0.1 10^3/uL (0.0-0.5); EOS % 1.3 % (0.0-3.0); LYMPH # 2.0 10^3/uL (1.5-5.0); LYMPH % 32.1 % (24.0-44.0); MONO # 0.5 10^3/uL (0.0-0.8); MONO % 8.1 % (2.0-8.0); NEUTROPHILS # 3.6 10^3/uL (1.5-8.5); NEUTROPHILS % 57.5 % (36.0-66.0); PLATELET COUNT, AUTOMATED 333 10^3/uL (150-450)
[2025-02-05 19:12] LABS: ETHYL ALCOHOL (ETHANOL) < 0.003 % (0.000-0.010)
[2025-02-05 19:14] LABS: ALT/SGPT 24 U/L (7.0-40); AST/SGOT 19 U/L (<34); CALCIUM LEVEL 9.0 MG/DL (8.5-10.1); CARBON DIOXIDE LEVEL 23 MMOL/L (20-31); CHLORIDE LEVEL 112 MMOL/L (98-107); CREATININE FOR GFR 0.65 MG/DL (0.55-1.30); GLOMERULAR FILTRATION RATE > 90.0 (>58); MAGNESIUM LEVEL 1.9 MG/DL (1.8-2.4); PHOSPHORUS LEVEL 3.0 MG/DL (2.5-4.9); POTASSIUM SERUM 4.1 MMOL/L (3.5-5.1); SODIUM LEVEL 143 MMOL/L (136-145)
[2025-02-05 20:09] VITALS: BP 151/95; TEMP 98.1; O2SAT 98
== END 2025-02-05 20:18 | disposition home or self-care (01) ==
LOC: M ED 17:48
DX: G43.909 Migraine, unspecified, not intractable, without status migrainosus (principal); G40.909 Epilepsy, unspecified, not intractable, without status epilepticus; I10 Essential (primary) hypertension; E28.2 Polycystic ovarian syndrome; E03.9 Hypothyroidism, unspecified; Z98.84 Bariatric surgery status; Z88.8 Allergy status to other drugs, medicaments and biological substances; Z91.013 Allergy to seafood; Z91.030 Bee allergy status; Z91.041 Radiographic dye allergy status; Z79.899 Other long term (current) drug therapy; Z79.83 Long term (current) use of bisphosphonates

== ENCOUNTER → 2025-03-05 | Outpatient (CLI) | payer OTHER ==
[~2025-03-05] MED LIST changes: -IBUP-1022 PO; +IBUP600T42 PO
[2025-03-05 10:11] LABS: BASO # 0.0 10^3/uL (0.0-0.2); BASO % 0.6 % (0.0-1.0); EOS # 0.1 10^3/uL (0.0-0.5); EOS % 1.5 % (0.0-3.0); LYMPH # 1.5 10^3/uL (1.5-5.0); LYMPH % 28.5 % (24.0-44.0); MONO # 0.4 10^3/uL (0.0-0.8); MONO % 7.1 % (2.0-8.0); NEUTROPHILS # 3.3 10^3/uL (1.5-8.5); NEUTROPHILS % 61.9 % (36.0-66.0); PLATELET COUNT, AUTOMATED 306 10^3/uL (150-450)
[2025-03-05 10:28] LABS: ESTIMATED AVERAGE GLUCOSE 91.0 MG/DL (60-110)
[2025-03-05 10:41] LABS: ALT/SGPT 23 U/L (7.0-40); AST/SGOT 20 U/L (<34); CALCIUM LEVEL 8.6 MG/DL (8.5-10.1); CARBON DIOXIDE LEVEL 22 MMOL/L (20-31); CHLORIDE LEVEL 111 MMOL/L (98-107); CHOLESTEROL LEVEL 131 MG/DL (<200); CHOLESTEROL RISK RATIO 3.33 (<5); CREATININE FOR GFR 0.71 MG/DL (0.55-1.30); GLOMERULAR FILTRATION RATE > 90.0 (>58); LDL CHOLESTEROL 75.1 MG/DL (<100); NON-HDL-C 91.7 MG/DL; POTASSIUM SERUM 4.2 MMOL/L (3.5-5.1); SODIUM LEVEL 142 MMOL/L (136-145); TRIGLYCERIDES LEVEL 83 MG/DL (<150)
[2025-03-05 10:43] LABS: FREE T4 1.52 NG/DL (0.89-1.76); VITAMIN B12 LEVEL 335 PG/ML (211-911)
== END ==
LOC: M LAB 08:35
PROVIDERS: ATTEND Student in an Organized Health Care Education/Training Program
DX: Z00.00 Encounter for general adult medical examination without abnormal findings (principal); K31.84 Gastroparesis

== ENCOUNTER 2025-03-29 17:53 | Emergency (ER) | payer OTHER ==
[~2025-03-29] VITALS: Ht 160 cm; Wt 86.2 kg
[2025-03-29] MEDS ORDERED: AJOV225I SC (18:11)
[2025-03-29] MEDS ORDERED: RIME75TA (18:11)
[2025-03-29] MEDS: dexAMETHasone 4 MG/ML 1 ML VIAL IV ONE (19:46)
[2025-03-29] MEDS: KETOROLAC 30 MG/ML 1 ML VIAL IV ONE (19:46)
[2025-03-29] MEDS: MAG SULF 1GM/100ML (MAG RUN) 1 GM in IV 1 EA IV ONE (19:47)
[2025-03-29] MEDS: NS (Normal Saline) 0.9% 1,000 ML IV ONE (19:47)
[2025-03-29] MEDS: ACETAMINOPHEN *IV* 1,000 MG in IV 1 EA IV ONE (19:47)
[2025-03-29] MEDS: MORPHINE 2 MG/ML 1 ML VIAL IV ONE (21:29)
[2025-03-29 22:49] VITALS: BP 138/90; TEMP 97.9; O2SAT 99
== END 2025-03-29 22:50 | disposition home or self-care (01) ==
LOC: M ED 17:53
DX: G43.909 Migraine, unspecified, not intractable, without status migrainosus (principal); E55.9 Vitamin D deficiency, unspecified; I10 Essential (primary) hypertension; K21.9 Gastro-esophageal reflux disease without esophagitis; F32.A Depression, unspecified; E03.9 Hypothyroidism, unspecified; Z98.84 Bariatric surgery status; Z88.8 Allergy status to other drugs, medicaments and biological substances; Z91.041 Radiographic dye allergy status; Z91.030 Bee allergy status; Z91.013 Allergy to seafood; Z79.899 Other long term (current) drug therapy
CPT/HCPCS: 70450; 80047; 96365; 96366; 96367; 96375; 99284; J0131; J1100; J1885; J2765; J3475

== ENCOUNTER 2025-06-11 19:05 | Emergency (ER) | payer OTHER ==
[~2025-06-11] VITALS: Ht 160 cm; Wt 80.5 kg
[~2025-06-11 19:05] MED LIST changes: +AJOV225I SC; +RIME75TA
[2025-06-11 19:08] VITALS: BP 154/97; TEMP 98.3; O2SAT 100
[2025-06-11 20:03] LABS: ALT/SGPT 15 U/L (7.0-40); AST/SGOT 19 U/L (<34); CALCIUM LEVEL 8.1 MG/DL (8.5-10.1); CARBON DIOXIDE LEVEL 20 MMOL/L (20-31); CHLORIDE LEVEL 112 MMOL/L (98-107); CREATININE FOR GFR 0.75 MG/DL (0.55-1.30); GLOMERULAR FILTRATION RATE > 90.0 (>58); MAGNESIUM LEVEL 1.9 MG/DL (1.8-2.4); POTASSIUM SERUM 3.8 MMOL/L (3.5-5.1); SODIUM LEVEL 142 MMOL/L (136-145)
[2025-06-11 20:08] LABS: BASO # 0.1 10^3/uL (0.0-0.2); BASO % 0.7 % (0.0-1.0); EOS # 0.0 10^3/uL (0.0-0.5); EOS % 0.5 % (0.0-3.0); LYMPH # 2.1 10^3/uL (1.5-5.0); LYMPH % 28.0 % (24.0-44.0); MONO # 0.5 10^3/uL (0.0-0.8); MONO % 6.2 % (2.0-8.0); NEUTROPHILS # 4.8 10^3/uL (1.5-8.5); NEUTROPHILS % 64.3 % (36.0-66.0); PLATELET COUNT, AUTOMATED 358 10^3/uL (150-450)
[2025-06-11 21:52] LABS: CK-MB VALUE MASS 1.0 NG/ML (<3.6)
[2025-06-11 21:59] LABS: CPK CREATINE PHOSPHOKINASE 81 U/L (34-145); MB/CK RELATIVE INDEX 1.23 (< OR =4)
== END 2025-06-11 22:43 | disposition left against medical advice (07) ==
LOC: M ED 19:35
DX: Z53.21 Procedure and treatment not carried out due to patient leaving prior to being seen by health care provider (principal)